=== PATIENT | female | born 1945 | race Caucasian/White ===

== ENCOUNTER 2020-09-07 08:44 | Outpatient (REF) | payer MEDICARE, SELFPAY | END 2020-09-07 08:45 | disposition home or self-care (01) | LOC: HO.LAB 08:44 | PROVIDERS: Visit Provider Internal Medicine | DX: Z20.828 Contact with and (suspected) exposure to other viral communicable diseases (principal) | CPT/HCPCS: C9803; U0003 ==

== ENCOUNTER 2021-04-11 14:16 | Outpatient (REF) | payer MEDICARE, SELFPAY | END 2021-04-11 14:17 | disposition home or self-care (01) | LOC: HO.LNP 14:16 | PROVIDERS: Visit Provider Hospitalist | DX: R30.0 Dysuria (principal) | CPT/HCPCS: 87086 ==

== ENCOUNTER 2021-04-25 13:58 | Outpatient (REF) | payer MEDICARE, SELFPAY ==
[2021-04-26 09:17] LABS: BV Int Neg Control Negative (Negative); BV Int Pos Control Positive (Positive)
== END 2021-04-25 13:59 | disposition home or self-care (01) ==
LOC: HO.LNP 13:58
PROVIDERS: Visit Provider Physician Assistant Medical
DX: N76.0 Acute vaginitis (principal)
CPT/HCPCS: 87480; 87510; 87660

== ENCOUNTER 2021-11-08 15:01 | Emergency (ER) | payer MEDICARE, SELFPAY ==
--- NOTE | ~2021-11-08 | XR_ITS ---
EXAMINATION: XR CHEST CLINICAL INFORMATION: Chest pain COMPARISON: Previous chest x-ray September 2014 TECHNIQUE: 2 views of the chest were obtained. FINDINGS: The cardiac and mediastinal contours are stable. The lungs are well inflated. There is a 1 cm dense right lower lobe nodule that is stable and probably represents a calcified granuloma. The lungs are otherwise clear. There is no pleural effusion or pneumothorax. There are degenerative changes of the spine and scoliosis. XR/XR chest 2V IMPRESSION: No evidence for acute disease in the chest.
--- NOTE | ~2021-11-08 | CT_ITS ---
EXAMINATION: CTA CHEST PE STUDY CLINICAL INFORMATION: Chest x-ray earlier today chest pain, SOB COMPARISON: No pertinent prior studies are available for comparison. TECHNIQUE: Prior to contrast administration, noncontrast localization images were obtained. After the administration of 56 mL of Omnipaque nonionic IV contrast, contiguous thin slice helical images were obtained through the thorax. Reformatted MIP images in the coronal and sagittal planes were obtained at the acquisition workstation. This CT examination was performed using dose optimization techniques as appropriate, variously including the following: *Automated exposure control *Adjustment of mA and/or kV according to patient size (this includes techniques or standardized protocols for targeted exams where dose is matched to indication/reason for exam; i.e. extremities or head) *Use of iterative reconstruction technique DLP: 161 mGy-cm. FINDINGS: The bolus timing on this study was acceptable for visualization of the pulmonary arterial tree. There are no intraluminal pulmonary arterial filling defects present to suggest pulmonary embolism. Calcified granulomas are seen more so in the right lower lobe. No suspicious abnormal pulmonary nodules or masses are appreciated. Calcified hilar and mediastinal lymph nodes are seen also consistent with the prior granulomatous disease. There is no evidence of pleural effusion or pneumothorax. The heart is normal in size. No evidence of ventricular septal bowing or right heart strain. Great vessels are normal. Otherwise the mediastinum is unremarkable. There is no pericardial effusion or pericardial thickening. Limited evaluation of the upper abdominal viscera demonstrates calcified granulomas in the spleen and liver. Degenerative changes in the spine. CT/CT angio chest PE protocol IMPRESSION: No evidence for pulmonary emboli. Again note is made of prior granulomatous disease VTE: Negative
--- NOTE | 2021-11-08 15:03 | ECG_ITS ---
Test Reason : chest pain Blood Pressure : / mmHG Vent. Rate : 069 BPM Atrial Rate : 069 BPM P-R Int : 146 ms QRS Dur : 070 ms QT Int : 388 ms P-R-T Axes : 050 058 067 degrees QTc Int : 415 ms Normal sinus rhythm Normal ECG No previous ECGs available Referred By: Generic ED Physician Electronically Signed By:Noman Reyes
[2021-11-08 15:25] VITALS: BP 174/83; PULSE 74; RESP 18; TEMP 36.8; O2SAT 100; BMI 22.1
[2021-11-08 15:31] LABS: MANUAL DIFF FLAG NO
[2021-11-08 15:37] LABS: Basophils Percent Auto 0.4 % (0-2); Eosinophils Absolute Auto 0.2 X10*3/uL (0.0-0.4); Eosinophils Percent Auto 3.3 % (0-4); Lymphocytes Absolute Auto 1.4 X10*3/uL (1.2-4.9); Lymphocytes Percent Auto 29.7 % (20-40); Mean Corpuscular HGB Conc 33.3 g/dl (31.0-35.0); Mean Corpuscular Hemoglobin 29.7 pg (27.0-33.0); Mean Corpuscular Volume 89.2 fL (80.0-98.0); Mean Platelet Volume 9.5 fL (9.4-12.3); Monocytes Absolute Auto 0.5 X10*3/uL (0.1-1.2); Monocytes Percent Auto 9.8 % (2-11); Neutrophils Absolute Auto 2.7 x10*3/uL (2.0-8.3); Neutrophils Percent Auto 56.8 % (45-73); Platelet Count 225 X10*3/uL (160-400); Red Blood Count 4.71 X10*6/uL (4.20-5.50); Red Cell Distribution Width 12.4 % (11.0-16.0); White Blood Count 4.8 X10*3/uL (4.8-10.8)
[2021-11-08 15:49] LABS: Alanine Aminotransferase 17 U/L (0-31); Albumin Level 4.2 g/dL (3.5-5.0); Alkaline Phosphatase 57 U/L (39-117); Anion Gap 11 (12-20); Aspartate Amino Transferase 24 U/L (5-31); Bilirubin Total 0.7 mg/dL (0.0-1.0); Blood Urea Nitrogen 11 mg/dL (9-16); Calcium 9.9 mg/dL (8.4-10.2); Carbon Dioxide 30 mmol/L (22-29); Chloride 102 mmol/L (96-108); Creatinine Clr Calc Pharmacy 61.5; Estimated Glomerular Filt Rate > 60; Glucose Random 101 mg/dL (60-115); Potassium 4.1 mmol/L (3.3-5.1); Sodium 139 mmol/L (135-145); Total Protein 6.7 g/dL (6.5-8.0)
[2021-11-08 15:52] LABS: Troponin-I High Sensitivity < 3.5 ng/L (<3.5-17.0)
[2021-11-08 15:58] VITALS: BP 178/107; PULSE 77; RESP 18; TEMP 36.5; O2SAT 98
--- NOTE | 2021-11-08 15:58 | ED_ITS ---
HPI - Chest Pain General Chief Complaint: Chest Pain <CARLYN Lutz - Last Filed: 11/08/21 18:15> Stated Complaint: severe chest pains <CARLYN Lutz - Last Filed: 11/08/21 18:15> Time Seen by Provider: 11/08/21 15:57 <CARLYN Lutz - Last Filed: 11/08/21 18:15> Source: patient <CARLYN Lutz - Last Filed: 11/08/21 18:15> Mode of arrival: ambulatory <CARLYN Lutz - Last Filed: 11/08/21 18:15> Limitations: no limitations <CARLYN Lutz Last Filed: 11/08/21 18:15> History of Present Illness HPI narrative: 76 y/o female with history of osteoporosis, scoliosis, gastritis, hx vertigo, hx hyperthyroidism in the 1979 s/p 6 months of PTU who presents to the ER for evaluation of a brief episode of sharp, central chest pain that happened earlier today 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 She states the pain came on suddenly and went away in 5 seconds. She had another slight twinge a few seconds later but none again since. 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 She has been having intermittent palpitations and racing heart rates since July. 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 She feels like sometimes she cannot get in a deep breath. She denies person or family history of DVT/PE. She had a history of retinal artery plaque years ago and has been on baby aspirin. She denies nausea or diaphoresis during the chest pain event today. No dizziness or reports of pre- syncope. <CARLYN Lutz - Last Filed: 11/08/21 18:15> MD complaint: chest pain <CARLYN Lutz - Last Filed: 11/08/21 18:15> Onset (ago): hour(s) (2) <CARLYN Lutz - Last Filed: 11/08/21 18:15> Timing of current episode: episodic and now resolved <CARLYN Lutz Last Filed: 11/08/21 18:15> Prior episodes: No <CARLYN Lutz - Last Filed: 11/08/21 18:15> Onset: during rest <CARLYN Lutz - Last Filed: 11/08/21 18:15> Pain location: substernal <CARLYN Lutz - Last Filed: 11/08/21 18:15> Pain radiation: none <CARLYN Lutz - Last Filed: 11/08/21 18:15> Severity: severe <CARLYN Lutz - Last Filed: 11/08/21 18:15> Pain scale (0-10): 8 <CARLYN Lutz - Last Filed: 11/08/21 18:15> Quality: sharp <CARLYN Lutz - Last Filed: 11/08/21 18:15> Relieving factors: nothing <CARLYN Lutz - Last Filed: 11/08/21 18:15> Exacerbating factors: nothing <CARLYN Lutz - Last Filed: 11/08/21 18:15> Associated symptoms: palpitations <CARLYN Lutz - Last Filed: 11/08/21 18:15> Treatment prior to arrival: none <CARLYN Lutz - Last Filed: 11/08/21 18:15> Risk Factors Coronary artery disease risk factors: hypertension (baseline BP 140/80 and not on antihypertensives) <CARLYN Lutz - Last Filed: 11/08/21 18:15> Thoracic aortic dissection risk factors: none <CARLYN Lutz - Last Filed: 11/08/21 18:15> Related Data Home Medications: Previous Rx's Medication Instructions Recorded sulfamethoxazole 800 1 tab PO BID #14 tab 04/11/21 mg-trimethoprim 160 mg tablet (Bactrim DS) fluconazole 150 mg tablet 150 mg PO Q3D #2 tab 04/25/21 (Diflucan) amlodipine 5 mg tablet (Norvasc) 5 mg PO DAILY #14 tab 11/08/21 <CARLYN Lutz - Last Filed: 11/08/21 18:15> Allergies/Adverse Reactions: Allergies Allergy/AdvReac Type Severity Reaction Status Date / Time No Known Allergies Allergy Verified 11/08/21 15:24 <CARLYN Lutz - Last Filed: 11/08/21 18:15> Review of Systems Review of Systems: Constitutional: No Fever, No Chills ENT/Mouth: No sore throat, No Rhinorrhea, No Swallowing Difficulty Eyes: No Eye Pain, No Swelling, No Redness Cardiovascular: + Chest Pain, + SOB, No Orthopnea, No Edema, +Palpitations Respiratory: No Cough, No Sputum, No Wheezing, No dyspnea Gastrointestinal: No Nausea, No Vomiting, No Diarrhea, No abdominal Pain Genitourinary: No Dysuria, No Urinary Frequency, No Hematuria Musculoskeletal: No joint pain, No Myalgias Skin: No Skin Lesions, No rash Neuro: No Weakness, No Numbness, No Dizziness, No Headache Psych: + Anxiety/Panic, No Depression Heme/Lymph: No Bruising, No Lymphadenopathy Endocrine: No hair loss, fatigue or weight loss <CARLYN Lutz - Last Filed: 11/08/21 18:15> [facility]LY [facility] Social History Social History: Social History Advance Directives: No Advance Directives Information Provided: No <CARLYN Lutz - Last Filed: 11/08/21 18:15> Physical Exam Vital Signs: Vital Signs: Last Vital Signs Temp 98.6 F 11/08/21 18:30 Pulse 70 11/08/21 18:30 Resp 12 11/08/21 18:30 BP 161/102 H 11/08/21 18:30 Pulse Ox 98 11/08/21 18:30 BMI result Body Mass Index 22.1 <CARLYN Lutz - Last Filed: 11/08/21 18:15> Vital Signs: Last Vital Signs Temp 98.6 F 11/08/21 18:30 Pulse 70 11/08/21 18:30 Resp 12 11/08/21 18:30 BP 161/102 H 11/08/21 18:30 Pulse Ox 98 11/08/21 18:30 BMI result Body Mass Index 22.1 <CARLYN Rdz - Last Filed: 11/08/21 19:25> Appearance: Alert. Oriented X3. No acute distress. Eyes: Pupils equal, round and reactive to light. ENT: Pharynx normal. Neck: Normal inspection. Neck supple. CVS: Normal heart rate and rhythm. Pulses normal. No murmur Respiratory: No respiratory distress. Breath sounds normal. Abdomen: Soft and nontender. +BS x4 Skin: Skin warm and dry. Normal skin color. Normal skin turgor. No rashes. Extremities: No lower extremity edema. No calf tenderness Neuro: Oriented X 3. No motor deficit. No sensory deficit. <CARLYN Lutz - Last Filed: 11/08/21 18:15> Course Course Course Narrative: 76 y/o female with history of osteoporosis, scoliosis, gastritis, hx vertigo, hx hyperthyroidism With intermittent heart palpitations since July 2021 who presents to the ER with brief episode of sharp central chest pain that occurred today. She also reports some intermittent shortness of breath and ongoing palpitations, sensation of her heart beating very fast. 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 EKG today is normal. Initial troponin is negative. Will get 3 hour repeat. <CARLYN Lutz Last Filed: 11/08/21 18:15> Reevaluation(s) Reevaluation #1: While in the room interviewing the patient she felt the palpitations for a few seconds. Patient's HR went up to 140s briefly and then came back down to 8 0s, sinus. Question of atrial flutter on telemetry. Will keep monitoring on telemetry to try and capture another event. Will get CTA to r/o PE. <CARLYN Lutz Last Filed: 11/08/21 18:15> Reevaluation #2: CTA is negative for PE. Second troponin pending. Anticipate to be able to be discharged home with plan to continue her follow-up and cardiac workup with her outpatient corn husker machine operator. No further episodes of palpitations witnessed. Signed out to Debbi who will follow-up repeat troponin. <CARLYN Lutz - Last Filed: 11/08/21 18:15> CTA is negative for PE. Second troponin pending. Anticipate to be able to be discharged home with plan to continue her follow-up and cardiac workup with her outpatient corn husker machine operator. No further episodes of palpitations witnessed. Signed out to Debbi who will follow-up repeat troponin. <CARLYN Rdz - Last Filed: 11/08/21 19:25> Reevaluation #3: CTA negvative for PE/VTE. There is granulomatous disease which appears to be chronic in nature. Trop negative x2. Will have patient follow-up with Cardiology and her PCP as soon as possible. No further episodes of palpitations witnessed. Patient noted to be hypertensive here. She was given Norvasc with improvement. She will be discharged home on 5 mg of Norvasc daily, will give her 2 week supply. Patient will be discharged home with Cardiology follow-up. Advised her to return with new or worsening symptoms. <CARLYN Rdz - Last Filed: 11/08/21 19:25> Time: 19:14 <CARLYN Rdz - Last Filed: 11/08/21 19:25> Procedures EJ/Peripheral Line Arm L: Time Out Performed: No <CARLYN Lutz - Last Filed: 11/08/21 18:15> Skin Cleansed in Sterile Fashion: Yes <CARLYN Lutz - Last Filed: 11/08/21 18:15> Size (gauge): 20 <CARLYN Lutz - Last Filed: 11/08/21 18:15> IV Secured and Dressing Applied: Yes <CARLYN Lutz - Last Filed: 11/08/21 18:15> Patient Tolerated Procedure: well and no complications <CARLYN Lutz - Last Filed: 11/08/21 18:15> MDM - Chest Pain Medical Records Data Attestation: I reviewed the patient's medical records. <CARLYN Lutz - Last Filed: 11/08/21 18:15> Lab Data Attestation: I reviewed the patient's lab results. <CARLYN Lutz - Last Filed: 11/08/21 18:15> Result diagrams: : 11/08/21 15:23 11/08/21 15:23 <CARLYN Lutz - Last Filed: 11/08/21 18:15> Labs: Lab Results 11/08/21 11/08/21 11/08/21 Range/Units 15:23 15:23 15:23 WBC 4.8 (4.8-10.8) X10*3/uL RBC 4.71 (4.20-5.50) X10*6/uL Hgb 14.0 (12.0-16.0) g/dl Hct 42.0 (37.0-47.0) % MCV 89.2 (80.0-98.0) fL MCH 29.7 (27.0-33.0) pg MCHC 33.3 (31.0-35.0) g/dl RDW 12.4 (11.0-16.0) % Plt Count 225 (160-400) X10*3/uL MPV 9.5 (9.4-12.3) fL Immature Gran % (Auto) 0.0 (0.0-0.4) % Neut % (Auto) 56.8 (45-73) % Lymph % (Auto) 29.7 (20-40) % [place] % (Auto) 9.8 (2-11) % Eos % (Auto) 3.3 (0-4) % Baso % (Auto) 0.4 (0-2) % Lymph # (Auto) 1.4 (1.2-4.9) X10*3/uL [place] # (Auto) 0.5 (0.1-1.2) X10*3/uL Eos # (Auto) 0.2 (0.0-0.4) X10*3/uL Baso # (Auto) 0.0 (0.0-0.2) X10*3/uL Abs Immat Gran (auto) 0.00 (0.00-0.03) X10*3/uL Absolute Neuts (auto) 2.7 (2.0-8.3) x10*3/uL Absolute Nucleated RBC 0.000 (0.0-0.012) X10*3/uL Nucleated RBC % (auto) 0.0 (0.0-0.2) /100WBC Sodium 139 (135-145) mmol/L Potassium 4.1 (3.3-5.1) mmol/L Chloride 102 (96-108) mmol/L Carbon Dioxide 30 H (22-29) mmol/L Anion Gap 11 L (12-20) BUN 11 (9-16) mg/dL Creatinine 0.74 (0.5-1.4) mg/dL Estim Creat Clear Calc 61.5 Estimated GFR > 60 Random Glucose 101 (60-115) mg/dL Calcium 9.9 (8.4-10.2) mg/dL Total Bilirubin 0.7 (0.0-1.0) mg/dL AST 24 (5-31) U/L ALT 17 (0-31) U/L Alkaline Phosphatase 57 (39-117) U/L Troponin I High Sens < 3.5 (<3.5-17.0) ng/L Total Protein 6.7 (6.5-8.0) g/dL Albumin 4.2 (3.5-5.0) g/dL TSH 1.13 (0.32-4.0) uIU/mL 11/08/21 Range/Units 18:30 WBC (4.8-10.8) X10*3/uL RBC (4.20-5.50) X10*6/uL Hgb (12.0-16.0) g/dl Hct (37.0-47.0) % MCV (80.0-98.0) fL MCH (27.0-33.0) pg MCHC (31.0-35.0) g/dl RDW (11.0-16.0) % Plt Count (160-400) X10*3/uL MPV (9.4-12.3) fL Immature Gran % (Auto) (0.0-0.4) % Neut % (Auto) (45-73) % Lymph % (Auto) (20-40) % [place] % (Auto) (2-11) % Eos % (Auto) (0-4) % Baso % (Auto) (0-2) % Lymph # (Auto) (1.2-4.9) X10*3/uL [place] # (Auto) (0.1-1.2) X10*3/uL Eos # (Auto) (0.0-0.4) X10*3/uL Baso # (Auto) (0.0-0.2) X10*3/uL Abs Immat Gran (auto) (0.00-0.03) X10*3/uL Absolute Neuts (auto) (2.0-8.3) x10*3/uL Absolute Nucleated RBC (0.0-0.012) X10*3/uL Nucleated RBC % (auto) (0.0-0.2) /100WBC Sodium (135-145) mmol/L Potassium (3.3-5.1) mmol/L Chloride (96-108) mmol/L Carbon Dioxide (22-29) mmol/L Anion Gap (12-20) BUN (9-16) mg/dL Creatinine (0.5-1.4) mg/dL Estim Creat Clear Calc Estimated GFR Random Glucose (60-115) mg/dL Calcium (8.4-10.2) mg/dL Total Bilirubin (0.0-1.0) mg/dL AST (5-31) U/L ALT (0-31) U/L Alkaline Phosphatase (39-117) U/L Troponin I High Sens < 3.5 (<3.5-17.0) ng/L Total Protein (6.5-8.0) g/dL Albumin (3.5-5.0) g/dL TSH (0.32-4.0) uIU/mL <CARLYN Lutz - Last Filed: 11/08/21 18:15> Lab Results 11/08/21 11/08/21 11/08/21 Range/Units 15:23 15:23 15:23 WBC 4.8 (4.8-10.8) X10*3/uL RBC 4.71 (4.20-5.50) X10*6/uL Hgb 14.0 (12.0-16.0) g/dl Hct 42.0 (37.0-47.0) % MCV 89.2 (80.0-98.0) fL MCH 29.7 (27.0-33.0) pg MCHC 33.3 (31.0-35.0) g/dl RDW 12.4 (11.0-16.0) % Plt Count 225 (160-400) X10*3/uL MPV 9.5 (9.4-12.3) fL Immature Gran % (Auto) 0.0 (0.0-0.4) % Neut % (Auto) 56.8 (45-73) % Lymph % (Auto) 29.7 (20-40) % [place] % (Auto) 9.8 (2-11) % Eos % (Auto) 3.3 (0-4) % Baso % (Auto) 0.4 (0-2) % Lymph # (Auto) 1.4 (1.2-4.9) X10*3/uL [place] # (Auto) 0.5 (0.1-1.2) X10*3/uL Eos # (Auto) 0.2 (0.0-0.4) X10*3/uL Baso # (Auto) 0.0 (0.0-0.2) X10*3/uL Abs Immat Gran (auto) 0.00 (0.00-0.03) X10*3/uL Absolute Neuts (auto) 2.7 (2.0-8.3) x10*3/uL Absolute Nucleated RBC 0.000 (0.0-0.012) X10*3/uL Nucleated RBC % (auto) 0.0 (0.0-0.2) /100WBC Sodium 139 (135-145) mmol/L Potassium 4.1 (3.3-5.1) mmol/L Chloride 102 (96-108) mmol/L Carbon Dioxide 30 H (22-29) mmol/L Anion Gap 11 L (12-20) BUN 11 (9-16) mg/dL Creatinine 0.74 (0.5-1.4) mg/dL Estim Creat Clear Calc 61.5 Estimated GFR > 60 Random Glucose 101 (60-115) mg/dL Calcium 9.9 (8.4-10.2) mg/dL Total Bilirubin 0.7 (0.0-1.0) mg/dL AST 24 (5-31) U/L ALT 17 (0-31) U/L Alkaline Phosphatase 57 (39-117) U/L Troponin I High Sens < 3.5 (<3.5-17.0) ng/L Total Protein 6.7 (6.5-8.0) g/dL Albumin 4.2 (3.5-5.0) g/dL TSH 1.13 (0.32-4.0) uIU/mL 11/08/21 Range/Units 18:30 WBC (4.8-10.8) X10*3/uL RBC (4.20-5.50) X10*6/uL Hgb (12.0-16.0) g/dl Hct (37.0-47.0) % MCV (80.0-98.0) fL MCH (27.0-33.0) pg MCHC (31.0-35.0) g/dl RDW (11.0-16.0) % Plt Count (160-400) X10*3/uL MPV (9.4-12.3) fL Immature Gran % (Auto) (0.0-0.4) % Neut % (Auto) (45-73) % Lymph % (Auto) (20-40) % [place] % (Auto) (2-11) % Eos % (Auto) (0-4) % Baso % (Auto) (0-2) % Lymph # (Auto) (1.2-4.9) X10*3/uL [place] # (Auto) (0.1-1.2) X10*3/uL Eos # (Auto) (0.0-0.4) X10*3/uL Baso # (Auto) (0.0-0.2) X10*3/uL Abs Immat Gran (auto) (0.00-0.03) X10*3/uL Absolute Neuts (auto) (2.0-8.3) x10*3/uL Absolute Nucleated RBC (0.0-0.012) X10*3/uL Nucleated RBC % (auto) (0.0-0.2) /100WBC Sodium (135-145) mmol/L Potassium (3.3-5.1) mmol/L Chloride (96-108) mmol/L Carbon Dioxide (22-29) mmol/L Anion Gap (12-20) BUN (9-16) mg/dL Creatinine (0.5-1.4) mg/dL Estim Creat Clear Calc Estimated GFR Random Glucose (60-115) mg/dL Calcium (8.4-10.2) mg/dL Total Bilirubin (0.0-1.0) mg/dL AST (5-31) U/L ALT (0-31) U/L Alkaline Phosphatase (39-117) U/L Troponin I High Sens < 3.5 (<3.5-17.0) ng/L Total Protein (6.5-8.0) g/dL Albumin (3.5-5.0) g/dL TSH (0.32-4.0) uIU/mL <CARLYN Rdz - Last Filed: 11/08/21 19:25> ECG Data ECG #1: Attestation: I personally reviewed and interpreted this ECG as follows: <CARLYN Lutz - Last Filed: 11/08/21 18:15> ECG interpretation date: 11/08/21 <CARLYN Lutz - Last Filed: 11/08/21 18:15> ECG interpretation time: 16:24 <CARLYN Lutz - Last Filed: 11/08/21 18:15> Prior ECG tracings: not available for review <CARLYN Lutz - Last Filed: 11/08/21 18:15> Interpretation: normal sinus rhythm, heart rate 69 beats per minute, normal MT interval, normal QRS, isolated T-wave inversion in V1, slightly peaked T-wave in V4 and V5, no ST segment elevations or depressions. <CARLYN Lutz - Last Filed: 11/08/21 18:15> Critical Care Time Critical Care Time Critical Care Time: No <CARLYN Rdz - Last Filed: 11/08/21 19:25> Discharge Plan Discharge Clinical Impression: Chest pain, Heart palpitations <CARLYN Lutz - Last Filed: 11/08/21 18:15> Patient Disposition: Home, Self-Care <CARLYN Lutz - Last Filed: 11/08/21 18:15> Instructions: Heart Palpitations (DC) <CARLYN Lutz - Last Filed: 11/08/21 18:15> Additional Instructions: Your lab workup today was normal. Your CT scan did not show any evidence of blood clots in the lungs. Your EKG was normal. Recommend following up with your corn husker machine operator as scheduled for your Holter monitor and echocardiogram. If you develop new or worsening symptoms call 911 or come back to the ER for further evaluation. <CARLYN Lutz Last Filed: 11/08/21 18:15> Prescriptions: New amlodipine [Norvasc] 5 mg tablet 5 mg PO DAILY Qty: 14 0RF No Action sulfamethoxazole-trimethoprim [Bactrim DS] 800-160 mg tablet 1 tab PO BID Qty: 14 0RF fluconazole [Diflucan] 150 mg tablet 150 mg PO Q3D Qty: 2 0RF Rx Instructions: may repeat second dose 72 hrs after first dose if symptoms persist <CARLYN Lutz - Last Filed: 11/08/21 18:15> Referrals: Edward Barajas FNP- [Primary Care Provider] - 2 days Noman Reyes MD [Physician] - 1 day <CARLYN Lutz - Last Filed: 11/08/21 18:15> Stand Alone Forms: Work/School Release <CARLYN Lutz - Last Filed: 11/08/21 18:15>
--- NOTE | 2021-11-08 16:01 | PC.NURSE ---
PT AWAKE AND AMBULATORY INTO ED. SHE IS IN A NSR ON THE MONITOR, WITH NO CURRENT REPORTED CP OR SOB. AWAITING PROVIDER. LABS RESULTED
[2021-11-08 16:38] LABS: TSH reflex Free T4 1.13 uIU/mL (0.32-4.0)
[2021-11-08] MEDS: iohexoL 350 MG/ML 100 ML INFUS..BTL IV (17:01)
[2021-11-08] MEDS: amLODIPine Besylate 5 MG TABLET PO (17:32)
[2021-11-08 18:30] VITALS: BP 161/102; PULSE 70; RESP 12; TEMP 37; O2SAT 98
[2021-11-08 19:06] LABS: Troponin-I High Sensitivity < 3.5 ng/L (<3.5-17.0)
[2021-11-08 19:30] VITALS: BP 151/93; PULSE 77; RESP 18; O2SAT 98
== END 2021-11-08 19:34 | disposition home or self-care (01) ==
PROVIDERS: Physician Assistant; Emergency Provider Emergency Medicine Emergency Medical Services; PCP Nurse Practitioner Family
DX: R07.89 Other chest pain (principal); R00.2 Palpitations; R06.02 Shortness of breath; Z79.899 Other long term (current) drug therapy
CPT/HCPCS: 36415; 36569; 71046; 71275; 80053; 84443; 84484; 85025; 93005; 99283; 99284; Q9967

== ENCOUNTER → 2021-12-15 13:28 | Outpatient (BNVA) | payer MEDICARE, SELFPAY | PROVIDERS: PCP Nurse Practitioner Family; Referring Provider Nurse Practitioner Family; Visit Provider Nurse Practitioner Family | DX: R00.2 Palpitations (principal); I47.1 Supraventricular tachycardia; R07.9 Chest pain, unspecified | CPT/HCPCS: 99202 ==

== ENCOUNTER → 2022-02-21 07:37 | Outpatient (REF) | payer MEDICARE, SELFPAY ==
--- NOTE | 2022-02-21 07:40 | CA_ITS ---
Transthoracic Echocardiogram Patient (Last, First, Middle): Sarai Babin E Gender: Female Date of : 1945 Age: 76 Procedure Date: 02/21/2022 Procedure Type: Transthoracic Echocardiogram Location: OP Height: 167.64 cm Weight: 62.14 kg BSA: 1.70 m2 Heart Rate: 69 bpm BP: 127 / 75 mmHg Spinneret Person: SB Referring MD: Edward Barajas [facility] Symptoms: R07.9 - Chest pain, unspecified Study Quality: Adequate ECG Rhythm: Sinus Conclusions: - The left ventricular systolic function is normal. The calculated ejection fraction is 59% by biplane method. - The basal inferior segment is hypokinetic. - There is low normal right ventricular systolic function. - There is mild calcification of the aortic valve. - There is mild mitral annular calcification. - Mild pulmonary hypertension is present. - The inferior vena cava is dilated and collapses less than 50% with inspiration. Findings Left Ventricle Normal left ventricular cavity size. There is normal left ventricular wall thickness. The left ventricular systolic function is normal. The calculated ejection fraction is 59% by biplane method. E/E prime ratio is between 8 and 15 consistent with indeterminate filling pressures. Evidence suggests grade I (mild) diastolic dysfunction. Wall Motion Rest Echo Findings The basal inferior segment is hypokinetic. Right Ventricle Normal right ventricular cavity size. There is low normal right ventricular systolic function. Atria Both atria are normal in size. Aortic Valve There is mild calcification of the aortic valve. There is no aortic valve stenosis. There is no aortic valve regurgitation. Mitral Valve There is mild mitral annular calcification. There is trace mitral valve regurgitation. There is no mitral valve stenosis. Pulmonic Valve The pulmonic valve is likely normal. There is trace pulmonic valve regurgitation. Tricuspid Valve Normal tricuspid valve structure. There is mild tricuspid valve regurgitation. The right ventricular systolic pressure is 37 mmHg. Mild pulmonary hypertension is present. Great Vessels The asc aorta is normal in size. Venous The inferior vena cava is dilated and collapses less than 50% with inspiration. Pericardium/Pleural There is a trivial pericardial effusion. Prior Study Comparison No prior study available for comparison. Measurements 2D Linear Measurements IVSd: 0.68 0.6-0.9/0.6-1.0 cm LVIDd: 4.68 3.9-5.3/4.2-5.9 cm LVIDd Index: 2.75 2.4-3.2/2.2-3.1 cm/m2 LVIDs: 3.06 2.0-3.6 cm LVPWd: 0.71 0.7-1.1 cm Ao Root: 3.30 2.1-3.5 cm LA Diam: 3.20 2.7-3.8/3.0-4.0 cm LAIDs Index: 1.88 1.5-2.3 cm/m2 LV Mass: 126.34 67-162/88-224 g LV Mass Index: 74.32 43-95/49-115 g/m2 LVOT Diam: 2.10 3.0+(-)1.3 cm 2D Systolic Function EF 4C: 59.60 >55% EF 2C: 60.60 >55% EF BiP: 58.90 >55% Mitral Valve MV Pk E: 0.72 MV PK A: 0.92 MV Decel Time: 188.00 E/A: 0.80 E'Lateral: 7.51 E'Medial: 4.90 E/E' Med: 14.80 E/E' Lat: 9.60 PHT: 55.00 MVA PHT: 4.00 Decel [place]: 3.86 Aortic Valve AoV Pk [place]: 1.68 AoV Mn [place]: 1.18 AoV VTI: 0.38 AoV Pk Grad: 11.00 Aov Mn Grad: 6.00 PERICO Cont.VTI: 2.12 LVOT LVOT Pk [place]: 1.09 LVOT Mn [place]: 0.76 LVOT VTI: 0.23 LVOT Pk Grad: 5.00 LVOT Mn Grad: 3.00 LVOT Diam: 2.10 LVOT Area: 3.46 Diastolic Function MV Pk E: 0.72 MV Pk A: 0.92 E/A: 0.80 E'Medial: 4.90 E/E' Med: 14.80 E' Laterial: 7.51 E/E' Lat: 9.60 Right Ventricle TAPSE (mm): 16.30 TVS' [place]: 11.60 Tricuspid Valve TR Pk [place]: 2.32 TR Pk Grad: 22.00 RA Press: 15.00 RVSP: 37.00 Great Vessels Aorta Ao Root-2D: 3.30 2.0-3.7 cm Sinus of Valsalva: 3.30 2.0-3.5 cm Ao Asc: 3.20 2.1-3.4 cm Pulmonary Veins Pulm Vein S/D 1.10 Pulmonary Valve PV Pk [place]: 0.61 Peak PV Grad: 1.00 Updated in Other Vendor System with Status of Final Armando Iraheta MD electronically signed on 02/21/2022 11:15:20 AM with status of Final
== END ==
LOC: HO.CARD 07:37
PROVIDERS: Visit Provider Nurse Practitioner Family
DX: R07.9 Chest pain, unspecified (principal)
CPT/HCPCS: 93306

== ENCOUNTER → 2022-03-20 09:08 | Outpatient (BNVA) | payer MEDICARE, SELFPAY | PROVIDERS: PCP Nurse Practitioner Family; Referring Provider Nurse Practitioner Family; Visit Provider Internal Medicine Cardiovascular Disease | DX: I10 Essential (primary) hypertension (principal); R00.2 Palpitations | CPT/HCPCS: 99212 ==

== ENCOUNTER 2022-06-09 12:29 | Outpatient (REF) | payer MEDICARE, SELFPAY ==
--- NOTE | ~2022-06-09 | MM_ITS ---
EXAMINATION: BONE DENSITOMETRY CLINICAL INDICATION: Osteoporosis. COMPARISON: Previous BD dated 05/18/2020 and baseline BD dated 05/25/2008. TECHNIQUE: Using a iGlue DXA System (software version: 13.1) manufactured by [employer], dual-energy x-ray absorptiometry was performed of the lumbar spine and left hip. The images are of good technical quality. Summary results are attached. FINDINGS: AP SPINE L1-L4: There is prominent dextrocurvature lumbar spine and multilevel degenerative changes which may cause overestimation of the lumbar bone mineral density. Current: BMD 1.016 g/cm2, Z-score 0.5, T-score -1.4, osteopenia, 1.2% increase from previous, 1.1% increase from baseline (<5% change is not significant). Prior: BMD 1.004 g/cm2. Baseline: BMD 1.005 g/cm2. LEFT FEMUR, NECK: Current: BMD 0.726 g/cm2, Z-score -0.2, T-score -2.2, osteopenia. Prior: BMD 0.737 g/cm2. Baseline: BMD 0.822 g/cm2. LEFT FEMUR, TOTAL: Current: BMD 0.717 g/cm2, Z-score -0.5, T-score -2.3, osteopenia, 2.3% decrease from previous, 17.0% decrease from baseline (<5% change is not significant). Prior: BMD 0.734 g/cm2. Baseline: BMD 0.864 g/cm2. IDENTIFIED RISK FACTORS: Osteoporosis, height loss, family history (parental hip fracture), secondary osteoporosis, menopause. HISTORY OF FRACTURE: None listed. MEDICATIONS: Vitamin D. MM/XR DEXA axial skeleton IMPRESSION: 1. DIAGNOSIS: Osteopenia based on the lowest T-score value of -2.3 in the total femur applying World Health Organization criteria. 2. 10-YEAR FRACTURE RISK PREDICTION, FRAX: Major osteoporotic fracture (clinical spine, forearm, hip or shoulder) 27.2%. Hip fracture 17.6%. 3. Treatment Recommendations: NOF guidelines recommend consideration for treatment in postmenopausal women and men age 50 and older presenting with the following: -A hip or vertebral (clinical or morphometric) fracture. -T-score less than or equal to -2.5 at the femoral neck or spine after appropriate evaluation to exclude secondary causes. -Low bone mass at the hip or spine and a 10-year fracture probability by FRAX of greater than or equal to 3% for hip fracture or greater than or equal to 20% for major osteoporotic fracture based on the [place] adapted WHO algorithm. 4. Other Recommendations: All treatment decisions require clinical judgment and consideration of individual patient factors, including patient preferences, comorbidities, previous drug use, risk factors not captured in the FRAX model (e.g. frailty, falls, vitamin D deficiency, increased bone turnover, interval significant decline in bone density) and possible under or overestimation of fracture risk by FRAX. Additional medical evaluation for secondary cause of low bone mineral density may be appropriate. FUTURE SCAN RECOMMENDATION: People with diagnosed cases of osteoporosis or at high risk for fracture should have regular bone mineral density tests. For patients eligible for Medicare, routine testing is allowed once every 2 years. The testing frequency can be increased to one year for patients who have rapidly progressing disease, those who are receiving or discontinuing medical therapy to restore bone mass, or have additional risk factors.
--- NOTE | ~2022-06-09 | MM_ITS ---
EXAMINATION: MM SCREENING DIGITAL BREAST TOMOSYNTHESIS, BILATERAL CLINICAL INFORMATION: Screening. Asymptomatic. The lifetime risk of breast cancer based on the Tyrer-Cuzick Model is 4%. COMPARISON: Mammography: 04/18/2018, 04/04/2016, 09/29/2014 TECHNIQUE: Digital breast tomosynthesis is performed in both the craniocaudal and mediolateral oblique views along with computer-aided detection (CAD). Synthesized 2D images are generated from the tomosynthesis. FINDINGS: There are scattered areas of fibroglandular density (ACR BI-RADS breast composition Category b). There are no significant masses, abnormal calcifications, or other abnormalities. Parenchymal pattern is similar to prior studies. No developing density or architectural abnormality. No significant changes. MM/MM tomosynthesis screening BI IMPRESSION: No mammographic evidence of malignancy. ASSESSMENT: BI-RADS 1: Negative RECOMMENDATION: Routine annual mammography screening. This patient's information was entered into a reminder system with a target due date for their next mammogram.
== END 2022-06-09 12:30 | disposition home or self-care (01) ==
LOC: HO.MAMMO 12:29
PROVIDERS: PCP Nurse Practitioner Family; Visit Provider Internal Medicine Endocrinology, Diabetes & Metabolism
DX: Z13.820 Encounter for screening for osteoporosis (principal); Z12.31 Encounter for screening mammogram for malignant neoplasm of breast; M81.0 Age-related osteoporosis without current pathological fracture; Z78.0 Asymptomatic menopausal state
CPT/HCPCS: 77063; 77067; 77080

== ENCOUNTER → 2022-07-24 09:21 | Outpatient (BNVA) | payer MEDICARE, SELFPAY | PROVIDERS: PCP Nurse Practitioner Family; Referring Provider Nurse Practitioner Family; Visit Provider Internal Medicine Cardiovascular Disease | DX: I10 Essential (primary) hypertension (principal); R00.2 Palpitations | CPT/HCPCS: 93005; 99212 ==

== ENCOUNTER → 2022-08-01 10:45 | Outpatient (REF) | payer MEDICARE, SELFPAY ==
--- NOTE | 2022-08-01 10:48 | HM_ITS ---
* Total monitoring time 23 days. Wear time 15 days. * Underlying rhythm is sinus. * Average ventricular rate 67/Min. Range 50 to 150/Min. * Evidence of supraventricular ectopy but low burden. Short runs noted. * Ventricular ectopy with a burden of 1.7%. * No significant pauses or AV blocks. * No evidence of atrial fibrillation. * Patient activations correlate with sinus rhythm/supraventricular ectopy. MTDD
== END ==
LOC: HO.CARD 10:45
PROVIDERS: Visit Provider Internal Medicine Cardiovascular Disease
DX: R00.2 Palpitations (principal)
CPT/HCPCS: 93270

== ENCOUNTER 2022-12-21 08:11 | Outpatient (REF) | payer MEDICARE, SELFPAY ==
--- NOTE | ~2022-12-21 | XR_ITS ---
EXAMINATION: XR HAND, RIGHT CLINICAL INFORMATION: Primary osteoarthritis right hand. COMPARISON: None available. TECHNIQUE: PA, lateral, and oblique views of the right hand. FINDINGS: There is loss of PIP and DIP joint spaces all digits with periarticular spurring and subchondral cyst consistent with degenerative osteoarthritis. There is no deformity, acute fracture or subluxation. The soft tissues are normal. The MCP, carpometacarpal and radioulnar carpal joint spaces are maintained normal. 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 No visible acute fracture or dislocation seen.
[2022-12-21 11:27] LABS: MANUAL DIFF FLAG NO
[2022-12-21 11:29] LABS: Appearance Urine Clear; Color Urine Yellow; Glucose Urine UA Negative (Negative); Leukocyte Esterase Urine Negative (Negative); Nitrite Urine Negative (Negative); Specific Gravity - Urine 1.015 (1.005-1.025); Urine Blood Negative (Negative); Urine Ketones Negative (Negative); Urine Protein Negative (Neg-Trace)
[2022-12-21 12:04] LABS: Basophils Absolute Auto 0.1 X10*3/uL (0.0-0.2); Basophils Percent Auto 1.2 % (0-2); Eosinophils Absolute Auto 0.3 X10*3/uL (0.0-0.4); Eosinophils Percent Auto 6.7 % (0-4); Hematocrit 41.7 % (37.0-47.0); Hemoglobin 13.7 g/dl (12.0-16.0); Imm Gran Abs Auto 0.01 X10*3/uL (0.00-0.03); Imm Gran Pct Auto 0.2 % (0.0-0.4); Lymphocytes Absolute Auto 1.5 X10*3/uL (1.2-4.9); Lymphocytes Percent Auto 34.3 % (20-40); Mean Corpuscular HGB Conc 32.9 g/dl (31.0-35.0); Mean Corpuscular Hemoglobin 29.8 pg (27.0-33.0); Mean Corpuscular Volume 90.8 fL (80.0-98.0); Mean Platelet Volume 9.9 fL (9.4-12.3); Monocytes Absolute Auto 0.5 X10*3/uL (0.1-1.2); Monocytes Percent Auto 11.1 % (2-11); Neutrophils Percent Auto 46.5 % (45-73); Platelet Count 259 X10*3/uL (160-400); Red Blood Count 4.59 X10*6/uL (4.20-5.50); White Blood Count 4.3 X10*3/uL (4.8-10.8)
[2022-12-21 12:11] LABS: Alanine Aminotransferase 17 U/L (0-31); Alkaline Phosphatase 69 U/L (39-117); Anion Gap 12 (12-20); Aspartate Amino Transferase 25 U/L (5-31); Bilirubin Total 0.7 mg/dL (0.0-1.0); Blood Urea Nitrogen 10 mg/dL (9-16); Calcium 9.3 mg/dL (8.4-10.2); Carbon Dioxide 29 mmol/L (22-29); Chloride 106 mmol/L (96-108); Cholesterol 230 mg/dL; Estimated Glomerular Filt Rate > 60; Glucose Fasting 97 mg/dL (60-99); HDL Cholesterol 93 mg/dL; LDL Cholesterol Calculated 129 mg/dl; Sodium 142 mmol/L (135-145); Total Protein 6.1 g/dL (6.5-8.0); Triglycerides 40 mg/dL
[2022-12-21 12:22] LABS: TSH reflex Free T4 0.96 uIU/mL (0.32-4.0); Vitamin D 25-OH Total 44.5 ng/mL (>30)
== END 2022-12-21 08:12 | disposition home or self-care (01) ==
LOC: HO.HMGCX 08:11
PROVIDERS: PCP Nurse Practitioner Family; Visit Provider Nurse Practitioner Family
DX: M19.041 Primary osteoarthritis, right hand (principal); I10 Essential (primary) hypertension; M81.0 Age-related osteoporosis without current pathological fracture
CPT/HCPCS: 36415; 73130; 80053; 80061; 81003; 82306; 84443; 85025

== ENCOUNTER → 2022-12-26 12:47 | Outpatient (BNVA) | payer MEDICARE, SELFPAY | PROVIDERS: PCP Nurse Practitioner Family; Visit Provider Orthopaedic Surgery | DX: M19.041 Primary osteoarthritis, right hand (principal) | CPT/HCPCS: 99202 ==

== ENCOUNTER 2023-01-16 12:07 | Outpatient (REF) | payer MEDICARE, SELFPAY ==
--- NOTE | ~2023-01-16 | XR_ITS ---
EXAMINATION: XR HAND, RIGHT CLINICAL INFORMATION: Pain right hand. COMPARISON: None available. TECHNIQUE: A single digital view of the right hand, 5th digit. FINDINGS: There is a needle positioned along the PIP joint 5th digit for steroid injection. There is severe loss of PIP and DIP joints of all digits with periarticular spurring, most prominent in the PIP and DIP joints of 5th digit. XR/XR hand RT min 3V IMPRESSION: Fluoroscopy guidance was provided to referring physician for pain management of PIP joint 5th digit. Fluoroscopy Time: 6.9 seconds. Dose Area Product: 2838.4 Gy-cm2
== END 2023-01-16 12:08 | disposition home or self-care (01) ==
LOC: HO.HOSX 12:07
PROVIDERS: PCP Nurse Practitioner Family; Visit Provider Orthopaedic Surgery
DX: M19.041 Primary osteoarthritis, right hand (principal)
CPT/HCPCS: 20600; 73130; 77002; 99212; J1020

== ENCOUNTER 2023-03-09 05:36 | Emergency (ER) | payer MEDICARE, SELFPAY ==
--- NOTE | ~2023-03-09 | XR_ITS ---
EXAMINATION: XR CHEST CLINICAL INFORMATION: Chest pain COMPARISON: 11/08/2021 TECHNIQUE: Frontal view of the chest was obtained. FINDINGS: Lung volumes are symmetric. No focal consolidation is seen. Redemonstrated right lower lobe calcification. No evidence of pneumothorax, pleural effusion, or pulmonary edema. Cardiac size is within normal limits. Calcification is present at the aortic arch. No acute osseous findings are seen. XR/XR chest 1V IMPRESSION: No acute cardiopulmonary findings.
--- NOTE | 2023-03-09 05:41 | ECG_ITS ---
Test Reason : CHEST PAIN Blood Pressure : / mmHG Vent. Rate : 065 BPM Atrial Rate : 065 BPM P-R Int : 156 ms QRS Dur : 070 ms QT Int : 400 ms P-R-T Axes : 034 053 058 degrees QTc Int : 416 ms Normal sinus rhythm Normal ECG When compared with ECG of 08-NOV-2021 15:07, No significant change was found Referred By: Generic ED Physician Electronically Signed By:Noman Reyes
[2023-03-09 06:00] VITALS: BP 140/73; PULSE 76; O2SAT 98; BMI 23.0
[2023-03-09 06:00] LABS: Basophils Percent Auto 0.7 % (0-2); Eosinophils Absolute Auto 0.2 X10*3/uL (0.0-0.4); Eosinophils Percent Auto 3.2 % (0-4); Hemoglobin 14.2 g/dl (12.0-16.0); Imm Gran Abs Auto 0.02 X10*3/uL (0.00-0.03); Imm Gran Pct Auto 0.4 % (0.0-0.4); Lymphocytes Absolute Auto 1.2 X10*3/uL (1.2-4.9); Lymphocytes Percent Auto 21.7 % (20-40); MANUAL DIFF FLAG NO; Mean Corpuscular HGB Conc 33.8 g/dl (31.0-35.0); Mean Corpuscular Hemoglobin 29.9 pg (27.0-33.0); Mean Corpuscular Volume 88.4 fL (80.0-98.0); Monocytes Absolute Auto 0.5 X10*3/uL (0.1-1.2); Monocytes Percent Auto 8.4 % (2-11); Neutrophils Absolute Auto 3.5 x10*3/uL (2.0-8.3); Neutrophils Percent Auto 65.6 % (45-73); Platelet Count 213 X10*3/uL (160-400); Red Blood Count 4.75 X10*6/uL (4.20-5.50); Red Cell Distribution Width 12.7 % (11.0-16.0); White Blood Count 5.3 X10*3/uL (4.8-10.8)
[2023-03-09 06:04] VITALS: PULSE 78
--- NOTE | 2023-03-09 06:05 | PC.NURSE ---
Pt presents to ER via EMS, complaining of chest pain, starting around 0400. Pt presents A&Ox4, GCS 15, with warm, dry skin. Pt reports she woke up with intermittent chest pains, episodes approx 60-90 seconds apart, lasting approx 10 seconds each. Pain is 4/10, dull, feels like gas and indigestion. Pt denies any SOB, NVD, radiating pain, numbnes or tingling in hands or feet. EMS gave 324mg of aspirin with no change in patient condition. EMS placed a 20g IV in the right AC. Pt is resting comfortably in bed at this time, has been changed into a sarita. Labs were drawn and sent, EKG and chest xray obtained. Pt waiting to be seen by provider at this time.
[2023-03-09 06:13] VITALS: BP 135/66; PULSE 70; RESP 17; TEMP 36.9; O2SAT 97
[2023-03-09 06:13] LABS: Anion Gap 14 (12-20); Blood Urea Nitrogen 17 mg/dL (9-16); Calcium 9.9 mg/dL (8.4-10.2); Carbon Dioxide 27 mmol/L (22-29); Chloride 106 mmol/L (96-108); Creatinine Clr Calc Pharmacy 65.9; Estimated Glomerular Filt Rate > 60; Glucose Random 115 mg/dL (60-115); Sodium 143 mmol/L (135-145)
[2023-03-09 06:23] LABS: Troponin-I High Sensitivity < 2.7 ng/L (<3.5-17.0)
--- NOTE | 2023-03-09 06:36 | ED_ITS ---
HPI - Chest Pain General Chief Complaint: Chest Pain Stated Complaint: Chest Pain Time Seen by Provider: 03/09/23 06:31 Source: patient, EMS and RN notes reviewed Mode of arrival: EMS Limitations: no limitations History of Present Illness HPI narrative: Patient is a 77-year-old female with history of HTN, osteoporosis, arthritis, atrial tachycardia presenting with intermittent episodes of left anterior chest pain which woke her from sleep around 4:00 a.m. Patient reports pain is a 3 to 4/10 and lasts approximately 10 seconds per episode. States has not had an episode in the past 5 minutes. Denies any associated shortness of breath. Denies nausea or vomiting. Denies abdominal pain. Denies cough for recent fevers. Reports pain feels similar to prior episodes of gastritis or gas. Denies any headache or vision changes. Reports two bowel movements this am after waking. Denies any bright red blood in stool or dark, tarry stool. MD complaint: chest pain Onset (ago): hour(s) Timing of current episode: episodic Onset: during rest Pain location: left chest Pain radiation: none Severity: mild Pain scale (0-10): 4 Quality: burning Relieving factors: nothing Exacerbating factors: nothing Treatment prior to arrival: none Related Data Home Medications Medication Instructions Recorded Confirmed aspirin 325 mg tablet 325 mg PO DAILY PRN 07/24/22 11/30/22 Previous Rx's Medication Instructions Recorded metoprolol succinate 25 mg 25 mg PO DAILY #90 tabs 10/18/22 tablet,extended release 24 hr amlodipine 5 mg tablet (Norvasc) 5 mg PO DAILY 90 days #90 tabs 02/26/23 Allergies Allergy/AdvReac Type Severity Reaction Status Date / Time No Known Allergies Allergy Verified 01/16/23 12:19 Review of Systems Review of Systems: As per HPI. Yes all other systems are reviewed and are negative Constitutional: Constitutional: Reports as per HPI PMFSH Past Medical History Surgical History No pertinent past surgical history Family History Family History Mother HTN (hypertension) Gastric lymphoma Father Lung cancer Sister CAD (coronary artery disease) Brother Prostate cancer genetic susceptibility HTN (hypertension) Social History Social History (Reviewed 05/09/23 @ 12:20 by KAYLEN Moe Housing: House Alcohol intake: never Patient Tobacco Use Status: Never used Tobacco Smoked in Last 30 Days: No e-Cigarette/Vaping Use: Never Used Second Hand Smoke Exposure: No Use of substances other than those prescribed or required for medical reasons: No Advance Directives: Yes Advance Directives Information Provided: Yes Advance Directives on File: No service: No 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 Blood pressure normal. Heart rate normal. Respiratory rate normal. Temperature normal. Oxygen saturation normal. Const: General: cooperative, healthy appearing and no acute distress Orientation/consciousness: oriented to person, oriented to place, oriented to time and patient oriented x3 Limitations: no limitations HEENT: Head: Yes normocephalic and Yes atraumatic Ears: external ears normal General nose exam: Normal external nose present Face and sinus: Yes face symmetric Mouth: oropharynx normal and moist mucous membranes Throat: Yes uvula midline Eyes: Pupils: Equal, round and reactive pupils present Neck: Neck: Yes normal visual inspection and Yes supple Resp: Effort & Inspection: normal respiratory effort and able to speak in complete sentences Auscultation: clear to auscultation bilaterally Cardio: Rate: regular rate Rhythm: regular rhythm Heart sounds: S1 nor mal heart sound present and S2 normal heart sound present GI: Palpation (GI): Soft to palpation and nontender Auscultation: normoactive bowel sounds : General: Yes no CVA tenderness Back/Spine/Pelvis: Back: no CVA tenderness Skin: General skin exam: elasticity normal and turgor normal Neuro: General: oriented to person, oriented to place, oriented to time, patient oriented x3, moves all extremities, no focal motor deficits and CN's II- XI intact bilaterally Cranial nerves: Yes Equal, round and reactive pupils present Cognition (Neuro): normal cognition Extrem: General: Yes full ROM, Yes no pedal edema and Yes no calf tenderness Psych: Mental Status: mental status grossly normal Affect: normal affect Thought process: Normal thought process present Medications Administered Discontinued Medications Generic Name Dose Route Start Last Admin Trade Name Cheri PRN Reason Stop Dose Admin Al Hydroxide/Mg Hydroxide 30 ml 03/09/23 08:57 03/09/23 09:15 Magnesium Hydrox/Alum Hydrox 30 Ml Oral.Susp PO 03/09/23 08:58 30 ml ONCE ONE Administration Medical Decision Making Medical Decision Making [facility] Narrative: Patient is a 77-year-old female with history of HTN, osteoporosis, arthritis, atrial tachycardia presenting with intermittent episodes of left anterior chest pain which woke her from sleep around 4:00 a.m. On exam patient is awake, A+Ox3, normal neurological exam without focal deficits, VS WNL, afebrile,?denies current chest pain, LS CTA throughout, abdomen soft and nontender.? No evidence of STEMI on EKG. Given reported symptoms and physical exam findings, differential includes?ACS, gastritis/GERD, pneumonia. Labs notable for negative initial troponin, no leukocytosis, no anemia. X-ray notable for?no evidence of infiltrate, pneumothorax, pleural effusion, or pulmonary edema.? My interpretation is in agreement with the radiologist's interpretation. Unlikely aortic dissection, esophageal rupture, PE, tamponade, endocarditis/pericarditis. Plan: Will obtain delta troponin and reassess.? ? 9:47 Delta trop negative. Symptoms improved with Maalox. Spoke with Dr. Reyes via [place] [employer] who feels patient is stable for discharge home with outpatient follow up. Instructed patient to follow up with PCP as well. Return precautions discussed at bedside. Patient verbalized understanding of and agreement with plan. ? Differential Diagnosis Differential Diagnoses: The differential diagnosis associated with the presentation includes As above. Admission/Observation Consideration of admission/observation: Escalation of care including admi ssion/observation considered Given concern for ACS considered admission on arrival. Consult Healthcare Provider Management of the patient was discussed with: Delivery Representative (Dr. Reyes) Lab Data [facility] Lab Attestation statement: I reviewed the patient's lab results. Notable for negative initial troponin, no leukocytosis, no anemia. 03/09/23 05:55 06/30/23 05:55 Labs: Lab Results 03/09/23 03/09/23 03/09/23 Range/Units 05:55 05:55 05:55 WBC 5.3 (4.8-10.8) X10*3/uL RBC 4.75 (4.20-5.50) X10*6/uL Hgb 14.2 (12.0-16.0) g/dl Hct 42.0 (37.0-47.0) % MCV 88.4 (80.0-98.0) fL MCH 29.9 (27.0-33.0) pg MCHC 33.8 (31.0-35.0) g/dl RDW 12.7 (11.0-16.0) % Plt Count 213 (160-400) X10*3/uL MPV 9.0 L (9.4-12.3) fL Immature Gran % (Auto) 0.4 (0.0-0.4) % Neut % (Auto) 65.6 (45-73) % Lymph % (Auto) 21.7 (20-40) % [place] % (Auto) 8.4 (2-11) % Eos % (Auto) 3.2 (0-4) % Baso % (Auto) 0.7 (0-2) % Lymph # (Auto) 1.2 (1.2-4.9) X10*3/uL [place] # (Auto) 0.5 (0.1-1.2) X10*3/uL Eos # (Auto) 0.2 (0.0-0.4) X10*3/uL Baso # (Auto) 0.0 (0.0-0.2) X10*3/uL Abs Immat Gran (auto) 0.02 (0.00-0.03) X10*3/uL Absolute Neuts (auto) 3.5 (2.0-8.3) x10*3/uL Absolute Nucleated RBC 0.000 (0.0-0.012) X10*3/uL Nucleated RBC % (auto) 0.0 (0.0-0.2) /100WBC Sodium 143 (135-145) mmol/L Potassium 4.0 (3.3-5.1) mmol/L Chloride 106 (96-108) mmol/L Carbon Dioxide 27 (22-29) mmol/L Anion Gap 14 (12-20) BUN 17 H (9-16) mg/dL Creatinine 0.68 (0.5-1.4) mg/dL Estim Creat Clear Calc 65.9 Estimated GFR > 60 Random Glucose 115 (60-115) mg/dL Calcium 9.9 D (8.4-10.2) mg/dL Troponin I High Sens < 2.7 (<3.5-17.0) ng/L Urine Color Urine Appearance Urine pH (5.0-9.0) Ur Specific [place] (1.005-1.025) Urine Protein (Neg-Trace) mg/dL Urine Glucose (UA) (Negative) mg/dL Urine Ketones (Negative) mg/dL Urine Blood (Negative) Urine Nitrite (Negative) Ur Leukocyte Esterase (Negative) Urine RBC (0-2) /HPF Urine WBC (0-5) /HPF Ur Squamous Epith Cells (0-2) /HPF Urine Bacteria (None Seen) Hyaline Casts (0-2) /LPF 03/09/23 03/09/23 Range/Units 07:30 08:55 WBC (4.8-10.8) X10*3/uL RBC (4.20-5.50) X10*6/uL Hgb (12.0-16.0) g/dl Hct (37.0-47.0) % MCV (80.0-98.0) fL MCH (27.0-33.0) pg MCHC (31.0-35.0) g/dl RDW (11.0-16.0) % Plt Count (160-400) X10*3/uL MPV (9.4-12.3) fL Immature Gran % (Auto) (0.0-0.4) % Neut % (Auto) (45-73) % Lymph % (Auto) (20-40) % [place] % (Auto) (2-11) % Eos % (Auto) (0-4) % Baso % (Auto) (0-2) % Lymph # (Auto) (1.2-4.9) X10*3/uL [place] # (Auto) (0.1-1.2) X10*3/uL Eos # (Auto) (0.0-0.4) X10*3/uL Baso # (Auto) (0.0-0.2) X10*3/uL Abs Immat Gran (auto) (0.00-0.03) X10*3/uL Absolute Neuts (auto) (2.0-8.3) x10*3/uL Absolute Nucleated RBC (0.0-0.012) X10*3/uL Nucleated RBC % (auto) (0.0-0.2) /100WBC Sodium (135-145) mmol/L Potassium (3.3-5.1) mmol/L Chloride (96-108) mmol/L Carbon Dioxide (22-29) mmol/L Anion Gap (12-20) BUN (9-16) mg/dL Creatinine (0.5-1.4) mg/dL Estim Creat Clear Calc Estimated GFR Random Glucose (60-115) mg/dL Calcium (8.4-10.2) mg/dL Troponin I High Sens < 2.7 (<3.5-17.0) ng/L Urine Color Yellow Urine Appearance Clear Urine pH 7.5 (5.0-9.0) Ur Specific [place] <= 1.005 (1.005-1.025) Urine Protein Negative (Neg-Trace) mg/dL Urine Glucose (UA) Negative (Negative) mg/dL Urine Ketones Negative (Negative) mg/dL Urine Blood Trace H (Negative) Urine Nitrite Negative (Negative) Ur Leukocyte Esterase Negative (Negative) Urine RBC 3-5 H (0-2) /HPF Urine WBC 0-5 (0-5) /HPF Ur Squamous Epith Cells 0-2 (0-2) /HPF Urine Bacteria None Seen (None Seen) Hyaline Casts 0-2 (0-2) /LPF Independent Interpretation I performed an independent interpretation of an: EKG and Plain X-Ray Interpretation: EKG: normal sinus rhythm, rate 65bpm, normal NC interval, no evidence of STEMI I independently reviewed the x-ray and agree with the radiologist's interpretation of no acute cardiopulmonary findings. Radiology Impression Discussion of test interpretation with radiology: I have reviewed the radiologist's reading. Radiologist Impression: XR/XR chest 1V IMPRESSION: No acute cardiopulmonary findings. ? External Record Review External record reviewed: Inpatient record, Office record and Outpatient record Scores Heart Score History: -1- moderately suspicious ECG: -0- normal Age: -2- > or = 65 Risk factory: -1- 1 or 2 risk factors Troponin: -0- < or = normal limit Score: 4 Risk: 16.6% Discharge Plan Discharge Clinical Impression: Chest pain Patient Disposition: Home, Self-Care Instructions: Chest Pain (DC) Additional Instructions: You were evaluated in the emergency department today for chest pain. 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 Please schedule an appointment for follow-up with your primary care physician as soon as possible. Return to the emergency department if you experience worsening or uncontrolled chest pain, shortness of breath, lightheadedness, feeling faint, loss of consciousness, nausea, vomiting, or any other concerning symptoms. Prescriptions: No Action metoprolol succinate 25 mg tablet extended release 24 hr 25 mg PO DAILY Qty: 90 3RF amlodipine [Norvasc] 5 mg tablet 5 mg PO DAILY 90 Days Qty: 90 0RF aspirin 325 mg tablet 325 mg PO DAILY PRN Referrals: [facility] [Provider Group]
[2023-03-09 07:43] LABS: Appearance Urine Clear; Color Urine Yellow; Glucose Urine UA Negative (Negative); Leukocyte Esterase Urine Negative (Negative); Nitrite Urine Negative (Negative); PH 7.5 (5.0-9.0); Specific Gravity - Urine <= 1.005 (1.005-1.025); UMIC TRIGGER UACC YES; Urine Blood Trace (Negative); Urine Ketones Negative (Negative); Urine Protein Negative (Neg-Trace)
[2023-03-09 07:45] LABS: Bacteria Urine None Seen (None Seen); Hyaline Casts Urine 0-2 /LPF (0-2); Squamous Epithelial Cell Urine 0-2 /HPF (0-2); WBC Urine 0-5 /HPF (0-5)
[2023-03-09 08:13] VITALS: BP 143/80; PULSE 69; RESP 12; TEMP 36.7; O2SAT 97
[2023-03-09] MEDS: Magnesium Hydrox/Alum Hydrox 30 ML ORAL.SUSP PO (09:15)
[2023-03-09 09:33] LABS: Troponin-I High Sensitivity < 2.7 ng/L (<3.5-17.0)
== END 2023-03-09 10:12 | disposition home or self-care (01) ==
PROVIDERS: Registered Nurse Emergency; Emergency Provider Emergency Medicine Emergency Medical Services; PCP Nurse Practitioner Family
DX: R07.9 Chest pain, unspecified (principal); I10 Essential (primary) hypertension; Z79.82 Long term (current) use of aspirin; Z79.899 Other long term (current) drug therapy
CPT/HCPCS: 36415; 71045; 80048; 81001; 84484; 85025; 93005; 99284; 99285

== ENCOUNTER 2023-04-25 09:38 | Outpatient (AMB) | payer MEDICARE, SELFPAY ==
[2023-04-25 10:02] VITALS: BP 122/80; PULSE 52; O2SAT 100; BMI 22.2
--- NOTE | 2023-04-25 10:02 | MHC.PC.OV ---
Vital Signs 04/25/23 10:02 Height 5 ft 6 in Weight 137 lb 6 oz BMI 22.2 BP 122/80 Blood Pressure Location Rt brachial Position Sitting Pulse 52 Pulse Source Pulse Oximeter Pulse Oximetry (%) 100 Oxygen Delivery Method Room Air Intake Visit Reasons: Swollen Gland / Lump On Throat Intake Note: pt says she had a tick bite a few weeks ago Allergies No Known Allergies Allergy (Verified 04/25/23 10:04) Medication List - Last Reconciled 04/25/23 by LEATHA Guerra amlodipine (Norvasc) 5 mg PO DAILY 90 days aspirin 325 mg PO DAILY PRN doxycycline hyclate 100 mg PO BID 21 days metoprolol succinate ER 25 mg PO DAILY Tobacco use date assessed: 04/25/23 Fall risk assessment: No Falls in past year Last assessed Fall Risk: 04/25/23 Dental Screening Dental Screen Date: 04/25/23 Did you have a dental visit in the last 12 months?: Yes Did you have a dental problem in the last 6 months where you did not have access to dental care?: No Was dental information given to patient?: Patient has dentist HPI Swollen Gland / Lump On Throat HPI Details Pt reports some right-sided throat swelling and raspy voice. She reports finding a tick on 04/08 and has had symptoms since (pt removed tick that was attached to her left foot region). Pt reports feeling tightness in her throat, describes squeezing. SHe reports it is getting slightly better, but still present, pointing to her thyroid region. Will order labs including tick testing and send doxy. Will also order US of neck. Denies fever, chills, and shortness of breath. 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 Nic Luke, Celsa Rogers, Ramiro Rivers and colleagues, with an educational iraida from [employer]. Review of Systems Const Reports as per HPI Physical exam (Primary Care) Vital Signs: Last Vital Signs Pulse 52 04/25/23 10:02 BP 122/80 04/25/23 10:02 Pulse Ox 100 04/25/23 10:02 Oxygen Delivery Method Room Air 04/25/23 10:02 BMI result Body Mass Index 22.2 Tobacco/Smoking Status: Tobacco use Status Tobacco use date assessed 04/25/23 04/25/23 10:06 Patient Tobacco Use Status Never used Tobacco 04/25/23 10:02 e-Cigarette/Vaping Use Never Used 04/25/23 10:02 Thrive Assessment: Date of Thrive Assessment Date Thrive assessed 03/09/22 04/25/23 10:02 Const General: cooperative and no acute distress Orientation/consciousness: patient oriented x3 HENMT Throat: Yes posterior oropharynx normal Neck Other: some swelling to right thyroid Neck: Yes no lymphadenopathy Resp Effort & Inspection: normal respiratory effort Auscultation: clear to auscultation bilaterally Cardio Rate: regular rate Rhythm: regular rhythm Heart sounds: S1 normal heart sound present, S2 normal heart sound present and Murmur heart sound present systolic Skin Other: no rashing/ EM Rashes: no rashes Neuro General: patient oriented x3 Psych Appearance: grossly normal Mental Status: mental status grossly normal Speech and movement: Normal speech and movement present Affect: normal affect Attitude: cooperative Thought process: Normal thought process present Thought content: Normal thought content present Insight: Good insight present (Psych) Judgement: Good judgement present (Psych) Assessment and Plan Assessment & Plan (1) Tick bite: Code(s): W57.XXXA - Bitten or stung by nonvenomous insect and other nonvenomous arthropods, initial encounter Plan: Tick testing ordered with labs (2) Neck swelling: Code(s): R22.1 - Localized swelling, mass and lump, neck Plan: US ordered Plan The patient agreed to the use of a medical records field technician for this encounter. Scribed for ROGELIO Bailon- by Kandi aTte medical records field technician, on 04/25/2023 at 10:15 EST. Orders: Orders Comprehensive Met. Panel Today W57.XXXA - Bitten or stung by nonvenomous insect and other nonvenomous arthropods, initial encounter TSH reflex Free T4 Today W57.XXXA - Bitten or stung by nonvenomous insect and other nonvenomous arthropods, initial encounter Complete Blood Count Auto Diff Today W57.XXXA - Bitten or stung by nonvenomous insect and other nonvenomous arthropods, initial encounter Tick-borne Disease Molecular Today W57.XXXA - Bitten or stung by nonvenomous insect and other nonvenomous arthropods, initial encounter UA CC w/rflx Micro + Cult Today W57.XXXA - Bitten or stung by nonvenomous insect and other nonvenomous arthropods, initial encounter US soft tiss head and/or neck Today R22.1 - Localized swelling, mass and lump, neck Medications: New doxycycline hyclate 100 mg PO BID 42 caps 0RF 21 days Coding Level of Care Code Est Pt Level 3 (14268) Diagnoses Tick bite W57.XXXA Neck swelling R22.1
== END 2023-04-25 11:05 | disposition home or self-care (01) ==
PROVIDERS: PCP Nurse Practitioner Family; Visit Provider Nurse Practitioner Family
DX: T63.481A Toxic effect of venom of other arthropod, accidental (unintentional), initial encounter (principal); R22.1 Localized swelling, mass and lump, neck
CPT/HCPCS: 99213

== ENCOUNTER 2023-04-25 10:35 | Outpatient (REF) | payer MEDICARE, SELFPAY ==
[2023-04-25 13:12] LABS: MANUAL DIFF FLAG NO
[2023-04-25 13:20] LABS: Basophils Absolute Auto 0.1 X10*3/uL (0.0-0.2); Basophils Percent Auto 0.9 % (0-2); Eosinophils Absolute Auto 0.1 X10*3/uL (0.0-0.4); Eosinophils Percent Auto 1.9 % (0-4); Hematocrit 43.9 % (37.0-47.0); Hemoglobin 14.4 g/dl (12.0-16.0); Imm Gran Abs Auto 0.02 X10*3/uL (0.00-0.03); Imm Gran Pct Auto 0.3 % (0.0-0.4); Lymphocytes Absolute Auto 1.3 X10*3/uL (1.2-4.9); Lymphocytes Percent Auto 23.1 % (20-40); Mean Corpuscular HGB Conc 32.8 g/dl (31.0-35.0); Mean Corpuscular Hemoglobin 29.9 pg (27.0-33.0); Mean Corpuscular Volume 91.1 fL (80.0-98.0); Mean Platelet Volume 9.9 fL (9.4-12.3); Monocytes Absolute Auto 0.5 X10*3/uL (0.1-1.2); Monocytes Percent Auto 8.9 % (2-11); Neutrophils Absolute Auto 3.7 x10*3/uL (2.0-8.3); Neutrophils Percent Auto 64.9 % (45-73); Platelet Count 263 X10*3/uL (160-400); Red Blood Count 4.82 X10*6/uL (4.20-5.50); Red Cell Distribution Width 12.6 % (11.0-16.0); White Blood Count 5.7 X10*3/uL (4.8-10.8)
[2023-04-25 13:25] LABS: Appearance Urine Clear; Color Urine Yellow; Glucose Urine UA Negative (Negative); Leukocyte Esterase Urine Trace (Negative); Nitrite Urine Negative (Negative); PH 6.5 (5.0-9.0); Specific Gravity - Urine 1.015 (1.005-1.025); UMIC TRIGGER UACC YES; Urine Blood Negative (Negative); Urine Ketones Negative (Negative); Urine Protein Negative (Neg-Trace)
[2023-04-25 13:32] LABS: Bacteria Urine None Seen (None Seen); Hyaline Casts Urine 0-2 /LPF (0-2); Squamous Epithelial Cell Urine 0-2 /HPF (0-2); WBC Urine 0-5 /HPF (0-5)
[2023-04-25 13:50] LABS: Alanine Aminotransferase 17 U/L (0-31); Albumin Level 4.3 g/dL (3.5-5.0); Alkaline Phosphatase 54 U/L (39-117); Anion Gap 11 (12-20); Aspartate Amino Transferase 23 U/L (5-31); Bilirubin Total 0.6 mg/dL (0.0-1.0); Blood Urea Nitrogen 12 mg/dL (9-16); Calcium 9.9 mg/dL (8.4-10.2); Carbon Dioxide 31 mmol/L (22-29); Chloride 105 mmol/L (96-108); Estimated Glomerular Filt Rate > 60; Glucose Random 83 mg/dL (60-115); Potassium 4.6 mmol/L (3.3-5.1); Sodium 142 mmol/L (135-145)
[2023-04-25 14:07] LABS: TSH reflex Free T4 0.74 uIU/mL (0.32-4.0)
[2023-04-26 17:54] LABS: A. Phagocytphilium DNA,RT-PCR NOT DETECTED (NOT DETECTED); Babesia Microti DNA, RT-PCR NOT DETECTED (NOT DETECTED); Borrelia Miyamotoi,DNA RT-PCR NOT DETECTED (NOT DETECTED); E.Chaffeensis DNA RT-PCR NOT DETECTED (NOT DETECTED); Lyme(Borrelia ssp)DNA RT-PCR NOT DETECTED (NOT DETECTED)
== END 2023-04-25 10:36 | disposition home or self-care (01) ==
LOC: HO.HMGCLDS 10:35
PROVIDERS: PCP Nurse Practitioner Family; Visit Provider Nurse Practitioner Family
DX: D72.819 Decreased white blood cell count, unspecified (principal); T14.8XXA Other injury of unspecified body region, initial encounter; W57.XXXA Bitten or stung by nonvenomous insect and other nonvenomous arthropods, initial encounter; Y93.9 Activity, unspecified; Y92.9 Unspecified place or not applicable; Y99.9 Unspecified external cause status; M25.50 Pain in unspecified joint; E04.1 Nontoxic single thyroid nodule
CPT/HCPCS: 36415; 80053; 81001; 84443; 85025; 87798; 87801

== ENCOUNTER 2023-05-01 13:33 | Outpatient (REF) | payer MEDICARE, SELFPAY ==
--- NOTE | ~2023-05-01 | US_ITS ---
EXAMINATION: US SOFT TISSUE NECK US THYROID CLINICAL INFORMATION: Right neck swelling status post tick bite in area of right neck level II and III, fullness as indicated by patient. TECHNIQUE: Ultrasound of the neck soft tissues is performed with high-frequency obando-scale imaging and color Doppler. Linear transducer obando-scale and color Doppler examination with attention to the region of the thyroid. FINDINGS: SOFT TISSUES NECK: Targeted ultrasound images were obtained by the regional company flatbed truck driver of the area of concern as indicated by the patient in the right neck at level II and III. Radiologist was not in attendance. Images were later provided for interpretation. Right level II lymph node with benign features including echogenic hilum and normal renal cortical thickness measures 1.0 x 0.4 x 1.0 cm. THYROID GLAND: SIZE: Measurements of the thyroid lobes and nodules are given in sagittal, anteroposterior and transverse dimensions respectively. Right Thyroid Lobe: 5.1 x 2.1 x 2.3 cm, volume 12.5 mL. Parenchyma: The gland echotexture is heterogeneous. Thyroid vascularity is hypervascular. Left Thyroid Lobe: 5.3 x 1.5 x 1.4 cm, volume 5.6 mL. Parenchyma: The gland echotexture is heterogeneous. Thyroid vascularity is hypervascular. Isthmus: 0.2 cm in maximum AP dimension. Estimated total number of nodules greater than or equal to 1 cm: 1. French Edge Operator nodules are described as follows: 1. Location: Right upper. Size: 2.4 x 1.6 x 2.0 cm, volume 4.0 mL. Nodule characteristics: Composition: Solid (2). Echogenicity: Isoechoic (1). Shape: Not taller than wide (0). Margins: Smooth (0). Echogenic Foci: Punctate echogenic foci (3). ACR TI-RADS total points: 6 ACR TI-RADS category: 4 NODES: No lymphadenopathy is seen in the tissue surrounding the thyroid gland. US/US soft tiss head and/or neck IMPRESSION: 1. Right thyroid 2.4 cm TR4 nodule meets criteria for biopsy. Fine-needle aspiration recommended. 2. Diffusely heterogeneous and hypervascular thyroid gland. Correlation with thyroid function tests and clinical exam recommended. 3. Right cervical level II lymph node measures 1.0 cm. Decisions regarding further management should be based on the clinical assessment. This study was presented today 05/02/2023 at 12:15 PM for interpretation. PSA staff will provide results to referring provider at this time. ACR TI-RADS RECOMMENDATION REFERENCE: Ultrasound-guided fine-needle aspiration, followup ultrasound, no further follow up. * TR1 (0 point) and TR2 (2 points): No FNA or follow up. * TR3 (3 points): FNA if more than or equal to 2.5 cm in maximum dimension, followup ultrasound in 1, 3 and 5 years if 1.5 to 2.4 cm in maximum dimension. * TR4 (4-6 points): FNA if more than or equal to 1.5 cm in maximum dimension, followup ultrasound in 1, 2, 3 and 5 years if 1 to 1.4 cm in maximum dimension. * TR5 (more than or equal to 7 points): FNA if more than or equal to 1 cm in maximum dimension, followup ultrasound every year for 5 years if 0.5 to 0.9 cm in maximum dimension. * TR3, TR4 or TR5 nodules that are below the size threshold for followup receive no follow up.
== END 2023-05-01 13:34 | disposition home or self-care (01) ==
LOC: HO.HMGCX 13:33
PROVIDERS: PCP Nurse Practitioner Family; Visit Provider Nurse Practitioner Family
DX: R22.1 Localized swelling, mass and lump, neck (principal)
CPT/HCPCS: 76536

== ENCOUNTER 2023-05-28 09:12 | Outpatient (AMB) | payer MEDICARE, SELFPAY ==
--- NOTE | 2023-05-28 09:27 | MHC.PC.OV ---
Vital Signs 05/28/23 09:28 Height 5 ft 6 in Weight 140 lb 4 oz BMI 22.6 BP 132/86 Blood Pressure Location Lt brachial Position Sitting Pulse 61 Pulse Source Pulse Oximeter Pulse Oximetry (%) 98 Oxygen Delivery Method Room Air Intake Visit Reasons: 6m follow up HTN Intake Note: pt is here to follow up on her US Allergies No Known Allergies Allergy (Verified 05/28/23 10:11) Medication List - Last Reconciled 05/28/23 by LEATHA Guerra amlodipine (Norvasc) 5 mg PO DAILY 90 days aspirin 325 mg PO DAILY PRN metoprolol succinate ER 25 mg PO DAILY Tobacco use date assessed: 05/28/23 Fall risk assessment: No Falls in past year Last assessed Fall Risk: 05/28/23 Dental Screening Dental Screen Date: 05/28/23 Did you have a dental visit in the last 12 months?: Yes Did you have a dental problem in the last 6 months where you did not have access to dental care?: No Was dental information given to patient?: Patient has dentist HPI 6m follow up HTN HPI Details recent UTI, just finished macrobid. Will order UA/culture. Denies fever, chills, and hematuria. Pt has some right-sided wheezes on exam, will order chest XR. Denies any symptoms (fevers, chills, CP, SOB, N/V). Pt is following up with endo due to thyroid nodule. 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 Nic Luke, Celsa Rogers, Ramiro Rivers and colleagues, with an educational iraida from [employer]. Review of Systems Const Reports as per HPI Physical exam (Primary Care) Vital Signs: Last Vital Signs Pulse 61 05/28/23 09:28 BP 132/86 05/28/23 09:28 Pulse Ox 98 05/28/23 09:28 Oxygen Delivery Method Room Air 05/28/23 09:28 BMI result Body Mass Index 22.6 Tobacco/Smoking Status: Tobacco use Status Tobacco use date assessed 05/28/23 05/28/23 09:32 Patient Tobacco Use Status Never used Tobacco 05/28/23 09:32 e-Cigarette/Vaping Use Never Used 05/28/23 09:32 Thrive Assessment: Date of Thrive Assessment Date Thrive assessed 03/09/22 05/28/23 09:32 Const General: cooperative Orientation/consciousness: patient oriented x3 Neck Other: palpable thyroid nodule right side Resp Other: right-sided wheeze noted Effort & Inspection: normal respiratory effort Auscultation: clear to auscultation bilaterally (faint wheeze to right mid) Cardio Rate: regular rate Rhythm: regular rhythm Heart sounds: S1 normal heart sound present, S2 normal heart sound present and Murmur heart sound present systolic Neuro General: patient oriented x3 Psych Appearance: grossly normal Mental Status: mental status grossly normal Speech and movement: Normal speech and movement present Affect: normal affect Attitude: cooperative Thought process: Normal thought process present Thought content: Normal thought content present Insight: Good insight present (Psych) Judgement: Good judgement present (Psych) Assessment and Plan Assessment & Plan (1) UTI (urinary tract infection): Code(s): N39.0 - Urinary tract infection, site not specified Plan: UA/culture ordered (2) Wheezing: Code(s): R06.2 - Wheezing (3) Thyroid nodule: Code(s): E04.1 - Nontoxic single thyroid nodule (4) HTN (hypertension): Comment: stable Code(s): I10 - Essential (primary) hypertension Plan The patient agreed to the use of a medical laboratory manager for this encounter. Scribed for LEATHA Bailon by Kandi Tate medical laboratory manager, on 05/28/2023 at 09:45 EST. Orders: Orders UA CC w/rflx Micro + Cult Today N39.0 - Urinary tract infection, site not specified Urine Culture Today N39.0 - Urinary tract infection, site not specified XR chest 2V Today R06.2 - Wheezing Coding Level of Care Code Est Pt Level 3 (77930) Diagnoses UTI (urinary tract infection) N39.0 Wheezing R06.2 Thyroid nodule E04.1 HTN (hypertension) I10
[2023-05-28 09:28] VITALS: BP 132/86; PULSE 61; O2SAT 98; BMI 22.6
== END 2023-05-28 10:00 | disposition home or self-care (01) ==
PROVIDERS: Visit Provider Nurse Practitioner Family
DX: N39.0 Urinary tract infection, site not specified (principal); R06.2 Wheezing; E04.1 Nontoxic single thyroid nodule; I10 Essential (primary) hypertension
CPT/HCPCS: 99213

== ENCOUNTER 2023-05-28 10:00 | Outpatient (REF) | payer MEDICARE, SELFPAY ==
--- NOTE | ~2023-05-28 | XR_ITS ---
EXAMINATION: XR CHEST CLINICAL INFORMATION: Wheezing. COMPARISON: 03/09/2023 TECHNIQUE: 2 views of the chest were obtained. FINDINGS: The lungs are hyperexpanded. There is a stable 1.0 cm nodular density projecting over the right lung base. This corresponds to a calcified nodule on CT chest 11/08/2021. No confluent opacity to suggest developing pneumonia. No pleural effusion. Cardiac silhouette is unchanged. Calcified granulomas in the spleen were previously demonstrated. XR/XR chest 2V IMPRESSION: No acute abnormality.
[2023-05-28 13:33] LABS: MANUAL DIFF FLAG NO
[2023-05-28 13:36] LABS: Appearance Urine Clear; Color Urine Yellow; Glucose Urine UA Negative (Negative); Leukocyte Esterase Urine Negative (Negative); Nitrite Urine Negative (Negative); Specific Gravity - Urine <= 1.005 (1.005-1.025); Urine Blood Negative (Negative); Urine Ketones Negative (Negative); Urine Protein Negative (Neg-Trace)
[2023-05-28 13:53] LABS: Basophils Percent Auto 0.6 % (0-2); Eosinophils Absolute Auto 0.1 X10*3/uL (0.0-0.4); Hematocrit 41.8 % (37.0-47.0); Hemoglobin 13.9 g/dl (12.0-16.0); Imm Gran Abs Auto 0.02 X10*3/uL (0.00-0.03); Imm Gran Pct Auto 0.4 % (0.0-0.4); Lymphocytes Absolute Auto 1.3 X10*3/uL (1.2-4.9); Lymphocytes Percent Auto 23.5 % (20-40); Mean Corpuscular HGB Conc 33.3 g/dl (31.0-35.0); Mean Corpuscular Hemoglobin 29.9 pg (27.0-33.0); Mean Corpuscular Volume 89.9 fL (80.0-98.0); Mean Platelet Volume 10.1 fL (9.4-12.3); Monocytes Absolute Auto 0.5 X10*3/uL (0.1-1.2); Neutrophils Absolute Auto 3.5 x10*3/uL (2.0-8.3); Neutrophils Percent Auto 64.5 % (45-73); Platelet Count 251 X10*3/uL (160-400); Red Blood Count 4.65 X10*6/uL (4.20-5.50); Red Cell Distribution Width 12.9 % (11.0-16.0); White Blood Count 5.4 X10*3/uL (4.8-10.8)
== END 2023-05-28 10:01 | disposition home or self-care (01) ==
LOC: HO.HMGCX 10:00
PROVIDERS: PCP Nurse Practitioner Family; Visit Provider Nurse Practitioner Family
DX: R06.2 Wheezing (principal); N39.0 Urinary tract infection, site not specified; T14.8XXA Other injury of unspecified body region, initial encounter; W57.XXXA Bitten or stung by nonvenomous insect and other nonvenomous arthropods, initial encounter
CPT/HCPCS: 36415; 71046; 81003; 85025; 87086

== ENCOUNTER 2023-07-02 11:16 | Outpatient (AMB) | payer MEDICARE, SELFPAY ==
--- NOTE | 2023-07-02 11:30 | MHC.OFFVIS ---
Intake Vital Signs 07/02/23 11:31 Height 5 ft 6 in Weight 137 lb 9.095 oz BMI 22.2 BP 112/68 Blood Pressure Location Lt brachial Position Sitting Pulse 57 Intake Visit Reasons: 6 month follow up Intake Note: 6 month follow up Furniture Cleaner Required: No Accompanied by: Self / Same As Patient Allergies No Known Allergies Allergy (Verified 07/02/23 11:32) Medication List - Last Reconciled 07/02/23 by Noman Reyes MD amlodipine (Norvasc) 5 mg PO DAILY 90 days aspirin 325 mg PO DAILY PRN metoprolol succinate ER 25 mg PO DAILY HPI HPI Comments History of Present Illness Details 77-year-old female here for follow-up. She has background history of palpitations. She was started on metoprolol in the past with some improvement in her symptoms. She is returning in complaining of palpitations happening once every couple of weeks. She is describing that the heart skips beats. She has no chest discomfort shortness of breath. 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 She previously had echocardiography which showed basal inferior wall motion abnormality. Given lack of symptoms we did not pursue any further testing for that. She is on metoprolol and Norvasc and her blood pressure control is good. 07/02/23: She returns for follow-up. Previously cardiac event monitor did not show any significant arrhythmia. She continues to get some palpitations 1 to twice a month lasting for few seconds. She is saying she takes full-dose aspirin because she had plaque seen in her left eye at 1 stage by her off tube cutter. Her blood pressure control is good. 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 Current occupational exposures/hazards: No Cognitive needs: No Hearing needs: No Vision needs: No Review of Systems Const Denies weakness ENT Denies dizziness Card Denies chest pain, Denies chest pain with activity, Denies syncope, Denies rapid heart rate, Denies pedal edema, Denies edema, Denies leg edema, Denies lightheadedness, Denies palpitations, Denies dyspnea, Denies dyspnea on exertion and Denies orthopnea Resp Denies cough, Denies dyspnea and Denies dyspnea on exertion GI Denies hematochezia and Denies change in stool character Musc Denies abnormal gait, Denies muscle cramps, Denies muscle weakness, Denies numbness, Denies radiating pain into limb and Denies tingling Neuro Denies abnormal gait, Denies dizziness, Denies syncope, Denies numbness, Denies tingling and Denies weakness Endo Denies palpitations Physical Exam Vital Signs: Last Vital Signs Pulse 57 07/02/23 11:31 BP 112/68 07/02/23 11:31 BMI result Body Mass Index 22.2 GENERAL APPEARANCE: in no acute distress, pleasant. NECK: no carotid bruit, no jugular venous distention. SKIN: no suspicious lesions, warm and dry. HEART: no murmurs, regular rate and rhythm. LUNGS: clear to auscultation bilaterally. ABDOMEN: soft, nontender. EXTREMITIES: no edema. PERIPHERAL PULSES: equal. NEUROLOGIC: No gross deficits, AAO X 3 Assessment & Plan Assessment & Plan (1) Palpitations: Code(s): R00.2 - Palpitations Plan [age] year female who is here for follow-up. She has history of palpitations. Cardiac event monitor did not show any significant arrhythmia. She has rare symptoms currently and overall is stable. Blood pressure control is good. I have advised her to use baby aspirin rather than full dose aspirin. The benefits are the same and full-dose aspirin will increase her risk of GI complications. Follow-up with us in 1 year. Thank you for allowing me to participate in the care of your patient. Please feel free to contact me if you have any questions. Medications: New aspirin (Adult Aspirin Regimen) 81 mg PO DAILY 1 tab 0RF Coding Level of Care Code Est Pt Level 4 (10583) Diagnoses Palpitations R00.2
[2023-07-02 11:31] VITALS: BP 112/68; PULSE 57; BMI 22.2
== END 2023-07-02 11:50 | disposition home or self-care (01) ==
PROVIDERS: PCP Nurse Practitioner Family; Visit Provider Internal Medicine Cardiovascular Disease
DX: R00.2 Palpitations (principal)
CPT/HCPCS: 99214

== ENCOUNTER → 2023-07-02 11:16 | Outpatient (BNVA) | payer MEDICARE, SELFPAY | PROVIDERS: PCP Nurse Practitioner Family; Visit Provider Internal Medicine Cardiovascular Disease | DX: R00.2 Palpitations (principal) | CPT/HCPCS: 99212 ==

== ENCOUNTER 2023-07-16 10:40 | Outpatient (AMB) | payer MEDICARE, SELFPAY ==
[2023-07-16 12:34] VITALS: BP 120/68; PULSE 62; TEMP 36.6; O2SAT 99; BMI 22.1
--- NOTE | 2023-07-16 12:34 | AM.OFFWIN_ITS ---
Intake Vital Signs 07/16/23 12:34 Height 5 ft 6 in Weight 137 lb BMI 22.1 BP 120/68 Blood Pressure Location Lt brachial Position Sitting Pulse 62 Pulse Source Pulse Oximeter Temp 97.9 F Temp Source Temporal Artery Scan Pulse Oximetry (%) 99 Oxygen Delivery Method Room Air Intake Visit Reasons: EP UTI Intake Note: pt is here for c/o possible uti Patient Tobacco Use Status: Never used Tobacco Allergies No Known Allergies Allergy (Verified 07/16/23 12:58) Medication List - Last Reconciled 07/16/23 by Ovidio Atkinson MD amlodipine (Norvasc) 5 mg PO DAILY 90 days aspirin (Adult Aspirin Regimen) 81 mg PO DAILY metoprolol succinate ER 25 mg PO DAILY Do you need a note to return to daycare/school/sports/work: Yes HPI EP UTI HPI Details Patient presents for a sick visit. Reports symptoms of increased frequency of urination, burning on urination and discomfort in the suprapubic area. Symptoms started in the past few days. No fevers or chills. No nausea or vomiting. 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 ) Current occupation: [employer] Current occupational exposures/hazards: No Cognitive needs: No Hearing needs: No Vision needs: No Physical Exam Vital Signs: Last Vital Signs Temp 97.9 F 07/16/23 12:34 Pulse 62 07/16/23 12:34 BP 120/68 07/16/23 12:34 Pulse Ox 99 07/16/23 12:34 Oxygen Delivery Method Room Air 07/16/23 12:34 BMI result Body Mass Index 22.1 General: Yes bladder normal to inspection and Yes no CVA tenderness Back/Spine/Pelvis Back: no CVA tenderness Assessment & Plan Assessment & Plan (1) UTI (urinary tract infection): Code(s): N39.0 - Urinary tract infection, site not specified Plan: Take antibiotics and Pyridium as directed. Increase fluid intake. If symptoms of burning persist, new onset of fever or lower back pain, to follow-up at the clinic. Coding Level of Care Code Est Pt Level 3 (50868) Diagnoses UTI (urinary tract infection) N39.0
== END 2023-07-16 13:03 | disposition home or self-care (01) ==
PROVIDERS: PCP Nurse Practitioner Family; Visit Provider Internal Medicine
DX: N39.0 Urinary tract infection, site not specified (principal)
CPT/HCPCS: 99213

== ENCOUNTER 2023-07-20 10:34 | Emergency (ER) | payer MEDICARE, SELFPAY ==
[2023-07-20 10:40] VITALS: BP 164/93; PULSE 85; RESP 18; TEMP 36.4; O2SAT 97; BMI 22.2
[2023-07-20 11:04] LABS: Appearance Urine Clear; Color Urine Yellow; Glucose Urine UA Negative (Negative); Leukocyte Esterase Urine Negative (Negative); Nitrite Urine Negative (Negative); PH 6.5 (5.0-9.0); Specific Gravity - Urine <= 1.005 (1.005-1.025); Urine Blood Negative (Negative); Urine Ketones Negative (Negative); Urine Protein Negative (Neg-Trace)
--- NOTE | 2023-07-20 11:10 | ED_ITS ---
HPI - General Adult General Chief complaint: General Medical Stated complaint: kidney infection ? Time Seen by Provider: 07/20/23 11:10 Source: patient Mode of arrival: ambulatory Limitations: no limitations History of Present Illness HPI narrative: Patient is a 77 year old assigned female at with a history of HTN presenting to the emergency department today with increased urinary urgency and low back pain. Patient states that she was seen and treated for a UTI recently, currently still taking Bactrim for it, however, she is still having low back pain and increased urinary urgency. Patient denies any dizziness, lightheadedness, abdominal pain, nausea, vomiting, fever, chills, blurry vision, double vision, loss of vision, chest pain, difficulty breathing, shortness of breath, night sweats, pain with urination, blood in her urine or stool, syncope or a near syncopal episode, recent trauma or falls, bowel incontinence, bladder incontinence, bowel retention, bladder retention, or any other complaints at this time. Onset (ago): week(s) Location: back Severity: mild Relieving factors: none Exacerbating factors: none Associated symptoms: denies other symptoms Treatments prior to arrival: other (Bactrim) Related Data Previous Rx's Medication Instructions Recorded metoprolol succinate 25 mg 25 mg PO DAILY #90 tabs 10/18/22 tablet,extended release 24 hr amlodipine 5 mg tablet (Norvasc) 5 mg PO DAILY 90 days #90 tabs 05/31/23 aspirin 81 mg tablet,delayed 81 mg PO DAILY #1 tab 07/02/23 release (Adult Aspirin Regimen) sulfamethoxazole 800 1 tab PO BID 5 days #10 tabs 07/16/23 mg-trimethoprim 160 mg tablet (Bactrim DS) Allergies Allergy/AdvReac Type Severity Reaction Status Date / Time No Known Allergies Allergy Verified 07/20/23 10:40 Review of Systems 2 Constitutional: Constitutional: Reports no additional constitutional complaints, Denies chills, Denies fever(s) and Denies night sweats Eyes: Eyes: Reports no additional eye complaints, Denies blurry vision, Denies change in vision, Denies diplopia, Denies eye discharge, Denies loss of vision and Denies eye pain ENT: Denies dizziness Cardiovascular: Cardiovascular: Reports no additional cardiovascular complaints, Denies chest pain, Denies lightheadedness, Denies Loss of Consciousness and Denies dyspnea Respiratory: Respiratory: Reports no additional respiratory complaints and Denies dyspnea Gastrointestinal: Gastrointestinal: Reports no additional gastrointestinal complaints, Denies abdominal pain, Denies melena, Denies hematochezia, Denies change in bowel habits and Denies change in stool character Genitourinary: Genitourinary: Denies hematuria, Denies urinary frequency, Denies dysuria, Denies urinary incontinence, Denies urinary hesitancy and Reports urinary urgency Musculoskeletal: Musculoskeletal: Reports no additional musculoskeletal complaints, Reports back pain, Denies numbness and Denies tingling Neurologic: Denies dizziness, Denies loss of vision, Denies numbness and Denies tingling Psychiatric: Psychiatric: Reports no additional psychiatric complaints Endocrine: Endocrine: Reports no additional endocrine complaints Hematologic/Lymphatic: Hematologic/Lymphatic: Reports no additional hematologic/lymphatic complaints Allergic/Immunologic: Allergic/Immunologic: Reports no additional allergic/immunologic complaints [facility] Past Medical History Attestation statement: The following information was validated with the patient. Source: old records reviewed and nursing notes reviewed Medical History Wheezing UTI (urinary tract infection) Neck swelling Tick bite Leukopenia Right ankle swelling Screening for breast cancer Palpitations Chest pain Dysuria Surgical History No pertinent past surgical history Family History Family History Mother HTN (hypertension) Gastric lymphoma Father Lung cancer Sister CAD (coronary artery disease) Brother Prostate cancer genetic susceptibility HTN (hypertension) Social History Social History Housing: House Alcohol intake: never Patient Tobacco Use Status: Never used Tobacco e-Cigarette/Vaping Use: Never Used Second Hand Smoke Exposure: No Advance Directives: No Advance Directives Information Provided: Yes service: No 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 occupation: [employer] Current occupational exposures/hazards: No Cognitive needs: No Hearing needs: No Vision needs: No Physical Exam ED Vital Signs: Vital Signs - 24 hr 07/20/23 10:40 Temperature 97.6 F Pulse Rate 85 Respiratory Rate 18 Blood Pressure 164/93 H Pulse Oximetry 97 Oxygen Delivery Method Room Air BMI result Body Mass Index 22.2 Const General: cooperative, no acute distress, alert and awake Nutritional Appearance: well nourished Orientation/consciousness: patient oriented x3 Limitations: no limitations HENMT Head: Yes normal to inspection and Yes atraumatic Ears: hearing grossly normal bilaterally and external ears normal General nose exam: Normal external nose present, no nasal discharge noted and no epistaxis Face and sinus: Yes normal facial exam, No abrasion and No laceration Mouth: Normal oral and palatal mucosa present, no drooling and no muffled voice Eyes General: appearance normal, both eyes and all related structures Periorbital: periorbital findings normal Eyelids: Yes eyelids normal Conjunctivae: conjunctivae normal Pupils: Equal, round and reactive pupils present EOM: EOMs intact bilaterally Neck Neck: Yes normal visual inspection, Yes full ROM and Yes no lymphadenopathy Chest Chest palpation & inspection: normal inspection of the chest Resp Effort & Inspection: normal respiratory effort and able to speak in complete sentences GI Inspection: Yes normal to inspection Palpation (GI): Soft to palpation, not firm, nontender and no guarding General: Yes no CVA tenderness Back/Spine/Pelvis Back: no CVA tenderness Cervical Spine: normal cervical lordosis and cervical ROM normal Thoracic/Lumbar Spine: thoracic and lumbar spine normal to inspection and thoraco-lumbar ROM normal Neuro General: patient oriented x3 and moves all extremities Cranial nerves: Yes Equal, round and reactive pupils present Cognition (Neuro): normal cognition Motor exam (neuro): 5/5 motor strength present throughout Sensory Exam: Normal double simultaneous stimulation for sensation Coordination: [id number] test normal Extrem General: Yes normal to inspection, Yes full ROM and Yes capillary refill normal Psych Appearance: grossly normal Mental Status: mental status grossly normal Affect: normal affect Attitude: cooperative Thought process: Normal thought process present Thought content: Normal thought content present Insight: Good insight present (Psych) Medical Decision Making Medical Decision Making MDM Narrative: Patient is a 77 year old assigned female at with a history of HTN presenting to the emergency department today with low back pain and increased urinary urgency. Patient's physical exam was unremarkable. Patient's blood work was unremarkable. Patient's urine showed no acute process. Patient's EKG was unremarkable. I explained my physical exam findings as well as all test results to the patient. I answered all questions asked by the patient. I stressed the importance of the patient taking her medication as prescribed. I stressed the importance of the patient following up with her primary care provider and a urologist. I stressed the importance of the patient returning to the emergency department immediately if her symptoms were to worsen or if she were to develop any dizziness, shortness of breath, difficulty breathing, chest pain, blurry vision, loss of vision, nausea, vomiting, abdominal pain, fever, chills, back pain, or any other complaints. Patient verbalized agreement and understanding with this treatment plan and discharge. Differential Diagnosis Differential Diagnoses: The differential diagnosis associated with the presentation includes UTI Pyelonephritis Increased urinary urgency Low back pain Admission/Observation Consideration of admission/observation: Escalation of care including admission/observation considered Patient would have been admitted to the hospital had her work up had any findings where hospital admission was appropriate and her clinical presentation warranted hospital admission. Lab Data MDM Lab Attestation statement: I reviewed the patient's lab results. My interpretation of these studies and their corresponding values is that they are grossly normal. 07/20/23 11:50 07/20/23 11:50 Labs: Lab Results 07/20/23 07/20/23 Range/Units 10:57 11:50 WBC 5.3 (4.8-10.8) X10*3/uL RBC 4.83 (4.20-5.50) X10*6/uL Hgb 14.4 (12.0-16.0) g/dl Hct 43.1 (37.0-47.0) % MCV 89.2 (80.0-98.0) fL MCH 29.8 (27.0-33.0) pg MCHC 33.4 (31.0-35.0) g/dl RDW 13.1 (11.0-16.0) % Plt Count 266 (160-400) X10*3/uL MPV 9.1 L (9.4-12.3) fL Immature Gran % (Auto) 0.2 (0.0-0.4) % Neut % (Auto) 67.2 (45-73) % Lymph % (Auto) 21.0 (20-40) % [place] % (Auto) 9.5 (2-11) % Eos % (Auto) 1.5 (0-4) % Baso % (Auto) 0.6 (0-2) % Lymph # (Auto) 1.1 L (1.2-4.9) X10*3/uL [place] # (Auto) 0.5 (0.1-1.2) X10*3/uL Eos # (Auto) 0.1 (0.0-0.4) X10*3/uL Baso # (Auto) 0.0 (0.0-0.2) X10*3/uL Abs Immat Gran (auto) 0.01 (0.00-0.03) X10*3/uL Absolute Neuts (auto) 3.5 (2.0-8.3) x10*3/uL Absolute Nucleated RBC 0.000 (0.0-0.012) X10*3/uL Nucleated RBC % (auto) 0.0 (0.0-0.2) /100WBC Sodium 137 (135-145) mmol/L Potassium 4.3 (3.3-5.1) mmol/L Chloride 105 (96-108) mmol/L Carbon Dioxide 25 (22-29) mmol/L Anion Gap 11 L (12-20) BUN 7 L (9-16) mg/dL Creatinine 0.86 (0.5-1.4) mg/dL Estim Creat Clear Calc 52.0 Estimated GFR > 60 Random Glucose 115 (60-115) mg/dL Calcium 9.6 (8.4-10.2) mg/dL Magnesium 2.3 (1.6-2.6) mg/dL Total Bilirubin 0.6 (0.0-1.0) mg/dL AST 33 H (5-31) U/L ALT 20 (0-31) U/L Alkaline Phosphatase 66 (39-117) U/L Troponin I High Sens < 2.7 (<3.5-17.0) ng/L Total Protein 7.4 (6.5-8.0) g/dL Albumin 4.6 (3.5-5.0) g/dL Urine Color Yellow Urine Appearance Clear Urine pH 6.5 (5.0-9.0) Ur Specific [place] <= 1.005 (1.005-1.025) Urine Protein Negative (Neg-Trace) mg/dL Urine Glucose (UA) Negative (Negative) mg/dL Urine Ketones Negative (Negative) mg/dL Urine Blood Negative (Negative) Urine Nitrite Negative (Negative) Ur Leukocyte Esterase Negative (Negative) Independent Interpretation I performed an independent interpretation of an: EKG Interpretation: Vent. Rate: 070 BPM Atrial Rate: 070 BPM P-R Int: 146 ms QRS Dur: 070 ms QT Int: 382 ms P-R-T Axes: 041 048 060 degrees QTc Int: 412 ms Normal sinus rhythm RSR' or QR pattern in V1 suggests right ventricular conduction delay Otherwise normal ECG When compared with ECG of 09-MAR-2023 05:41, No significant change was found Electronically Signed By:DELFINA LINDSEY MD Dictated By: Cong Lindsey MD Signed By: Electronically signed by Cong Lindsey MD 07/20/23 [id number] Radiology Impression Discussion of test interpretation with radiology: I have reviewed the radiologist's reading. Chronic Conditions Patient?s care impacted by: Hypertension Discharge Plan Discharge Clinical Impression: Urinary urgency Patient Disposition: Home, Self-Care Instructions: Urinary Urgency and Frequency (DC) Additional Instructions: Follow up with your primary care provider and a urologist. Return to the emergency department immediately if your symptoms worsen or if you develop any dizziness, shortness of breath, difficulty breathing, chest pain, blurry vision, loss of vision, nausea, vomiting, abdominal pain, fever, chills, back pain, or any other complaints. Prescriptions: No Action metoprolol succinate 25 mg tablet extended release 24 hr 25 mg PO DAILY Qty: 90 3RF amlodipine [Norvasc] 5 mg tablet 5 mg PO DAILY 90 Days Qty: 90 1RF sulfamethoxazole-trimethoprim [Bactrim DS] 800-160 mg tablet 1 tab PO BID 5 Days Qty: 10 0RF aspirin [Adult Aspirin Regimen] 81 mg tablet,delayed release (DR/EC) 81 mg PO DAILY Qty: 1 0RF [place] [facility] [place] (Call to establish and follow up with a primary care provider. If you already have a primary care provider, please follow up with them.) [facility] [place] [facility] [place] (Call to establish and follow up with a primary care provider. If you already have a primary care provider, please follow up with them.) [facility] [place] [facility] [place]] (Call to establish and follow up with a primary care provider. If you already have a primary care provider, please follow up with them.) [facility] [place] [facility] [place]] (Call to establish and follow up with a urologist.) Interventions: ED Discharge Assessment Last Done: 07/20/23 13:13 Discharge Date/Time: 07/20/23 13:13 Print Language: Khmer
--- NOTE | 2023-07-20 11:37 | ECG_ITS ---
Test Reason : BACK PAIN Blood Pressure : / mmHG Vent. Rate : 070 BPM Atrial Rate : 070 BPM P-R Int : 146 ms QRS Dur : 070 ms QT Int : 382 ms P-R-T Axes : 041 048 060 degrees QTc Int : 412 ms Normal sinus rhythm RSR' or QR pattern in V1 suggests right ventricular conduction delay Otherwise normal ECG When compared with ECG of 09-MAR-2023 05:41, No significant change was found Referred By: Allegra Bradley Electronically Signed By:DELFINA LINDSEY MD
[2023-07-20 11:55] LABS: MANUAL DIFF FLAG NO
[2023-07-20 11:58] LABS: Basophils Percent Auto 0.6 % (0-2); Eosinophils Absolute Auto 0.1 X10*3/uL (0.0-0.4); Eosinophils Percent Auto 1.5 % (0-4); Hematocrit 43.1 % (37.0-47.0); Hemoglobin 14.4 g/dl (12.0-16.0); Imm Gran Abs Auto 0.01 X10*3/uL (0.00-0.03); Imm Gran Pct Auto 0.2 % (0.0-0.4); Lymphocytes Absolute Auto 1.1 X10*3/uL (1.2-4.9); Mean Corpuscular HGB Conc 33.4 g/dl (31.0-35.0); Mean Corpuscular Hemoglobin 29.8 pg (27.0-33.0); Mean Corpuscular Volume 89.2 fL (80.0-98.0); Mean Platelet Volume 9.1 fL (9.4-12.3); Monocytes Absolute Auto 0.5 X10*3/uL (0.1-1.2); Monocytes Percent Auto 9.5 % (2-11); Neutrophils Absolute Auto 3.5 x10*3/uL (2.0-8.3); Neutrophils Percent Auto 67.2 % (45-73); Platelet Count 266 X10*3/uL (160-400); Red Blood Count 4.83 X10*6/uL (4.20-5.50); Red Cell Distribution Width 13.1 % (11.0-16.0); White Blood Count 5.3 X10*3/uL (4.8-10.8)
[2023-07-20 12:17] LABS: Alanine Aminotransferase 20 U/L (0-31); Albumin Level 4.6 g/dL (3.5-5.0); Alkaline Phosphatase 66 U/L (39-117); Anion Gap 11 (12-20); Aspartate Amino Transferase 33 U/L (5-31); Bilirubin Total 0.6 mg/dL (0.0-1.0); Blood Urea Nitrogen 7 mg/dL (9-16); Calcium 9.6 mg/dL (8.4-10.2); Carbon Dioxide 25 mmol/L (22-29); Chloride 105 mmol/L (96-108); Estimated Glomerular Filt Rate > 60; Glucose Random 115 mg/dL (60-115); Magnesium 2.3 mg/dL (1.6-2.6); Potassium 4.3 mmol/L (3.3-5.1); Sodium 137 mmol/L (135-145); Total Protein 7.4 g/dL (6.5-8.0)
[2023-07-20 12:34] LABS: Troponin-I High Sensitivity < 2.7 ng/L (<3.5-17.0)
== END 2023-07-20 13:13 | disposition home or self-care (01) ==
PROVIDERS: Physician Assistant Medical; Emergency Provider Emergency Medicine
DX: R39.15 Urgency of urination (principal); M54.50 Low back pain, unspecified; R94.31 Abnormal electrocardiogram [ECG] [EKG]; Z79.899 Other long term (current) drug therapy
CPT/HCPCS: 36415; 80053; 81003; 83735; 84484; 85025; 93005; 99283

== ENCOUNTER 2023-09-24 13:15 | Outpatient (AMB) | payer MEDICARE, SELFPAY ==
--- NOTE | 2023-09-24 13:17 | MHC.PC.OV ---
Vital Signs 09/24/23 13:20 Weight 141 lb BP 118/76 Blood Pressure Location Lt brachial Position Sitting Pulse 68 Pulse Source Pulse Oximeter Pulse Oximetry (%) 98 Oxygen Delivery Method Room Air Intake Visit Reasons: SWV [id number] Intake Note: Patient here for SWV. Allergies No Known Allergies Allergy (Verified 09/24/23 13:20) Tobacco use date assessed: 09/24/23 Fall risk assessment: No Falls in past year Last assessed Fall Risk: 09/24/23 Dental Screening Dental Screen Date: 09/24/23 Did you have a dental visit in the last 12 months?: Yes Did you have a dental problem in the last 6 months where you did not have access to dental care?: No Was dental information given to patient?: Patient has dentist HPI SWV [id number] HPI Details Pt is here for an SWV. Denies fever, chills, and dizziness. Malcolm of care in scan pile. PPP will be scanned in chart and copy will be given to pt. 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 How often do you have a drink containing alcohol?: Monthly or less 2. How many drinks containing alcohol do you have on a typical day when you are drinking?: 1 or 2 3. How often do you have six or more drinks on one occasion?: Never Total Score: 1 Score Reviewed/Action Taken: No LITA-7 AMB Questionnaire LITA-7 Date LITA - 7 assessed: 03/09/22 Source: Developed by Drs. Nic Luke, Celsa Rogers, Ramiro Rivers and colleagues, with an educational iraida from [employer]. Review of Systems Const Reports as per HPI Physical exam (Primary Care) Vital Signs: Last Vital Signs Pulse 68 09/24/23 13:20 BP 118/76 09/24/23 13:20 Pulse Ox 98 09/24/23 13:20 Oxygen Delivery Method Room Air 09/24/23 13:20 Tobacco/Smoking Status: Tobacco use Status Tobacco use date assessed 09/24/23 09/24/23 13:22 Patient Tobacco Use Status Never used Tobacco 09/24/23 13:19 e-Cigarette/Vaping Use Never Used 09/24/23 13:19 Thrive Assessment: Date of Thrive Assessment Date Thrive assessed 03/09/22 09/24/23 13:19 Const General: cooperative Orientation/consciousness: patient oriented x3 Neuro General: patient oriented x3 Psych Appearance: grossly normal Mental Status: mental status grossly normal Speech and movement: Normal speech and movement present Affect: normal affect Attitude: cooperative Thought process: Normal thought process present Thought content: Normal thought content present Insight: Good insight present (Psych) Judgement: Good judgement present (Psych) Assessment and Plan Assessment & Plan Plan The patient agreed to the use of a medical logistics specialist for this encounter. Scribed for LEATHA Bailon by Kandi Tate medical logistics specialist, on 09/24/2023 at 13:25 EST. Coding
[2023-09-24 13:20] VITALS: BP 118/76; PULSE 68; O2SAT 98
--- NOTE | 2023-09-24 13:26 | AM.OFFVISMDC ---
Intake Vital Signs 09/24/23 13:20 Weight 141 lb BP 118/76 Blood Pressure Location Lt brachial Position Sitting Pulse 68 Pulse Source Pulse Oximeter Pulse Oximetry (%) 98 Oxygen Delivery Method Room Air Intake Visit Reasons: SWV G0439 Allergies No Known Allergies Allergy (Verified 09/24/23 13:20) Medication List - Last Reconciled 09/24/23 by Edward Barajas, FEEDER OPERATOR- amlodipine (Norvasc) 5 mg PO DAILY 90 days aspirin (Adult Aspirin Regimen) 81 mg PO DAILY metoprolol succinate ER 25 mg PO DAILY HPI SWV G0439 HPI Details Pt is here for an SWV. Denies fever, chills, and dizziness. [place] of care in scan pile. PPP will be scanned in chart and copy will be given to pt. Hx of osteoporosis, will order bone density. Pt reports tinnitus in her right ear. Will refer for hearing screen. [facility], LATER [facility] Medical History Wheezing UTI (urinary tract infection) Neck swelling Tick bite Leukopenia Right ankle swelling Screening for breast cancer Palpitations Chest pain Dysuria Surgical History No pertinent past surgical history Family History Mother HTN (hypertension) Gastric lymphoma Father Lung cancer Sister CAD (coronary artery disease) Brother Prostate cancer genetic susceptibility HTN (hypertension) Social History Housing: House Alcohol intake: never Patient Tobacco Use Status: Never used Tobacco e-Cigarette/Vaping Use: Never Used Second Hand Smoke Exposure: No service: No 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 ) Current occupation: [employer] Current occupational exposures/hazards: No Cognitive needs: No Hearing needs: No Vision needs: No Questionnaire Medicare Wellness Checkup [age] What gender do you identify with?: female During the past 4 weeks, how much have you been bothered by emotional problems such as feeling anxious, depressed, irritable, sad or downhearted, and blue?: not at all During the past 4 weeks, has your physical & emotional health limited your social activities with family, friends, neighbors, or groups?: not at all During the past 4 weeks, how much bodily pain have you generally had?: very mild pain During the past 4 weeks, was someone available to help you if you needed & wanted help?: no, not at all During the past 4 weeks, what was the hardest physical activity you could do for at least 2 minutes?: heavy Can you get to places out of walking distance without help? (For eg., can you travel alone on buses, taxis or drive your car?): Yes Can you go shopping for groceries or clothes without someone's help?: Yes Can you prepare your own meals?: Yes Can you do your housework without help?: Yes Because of any health problems, do you need the help of another person with your personal care needs such as eating, bathing, dressing or getting around the house?: No Can you handle your own money without help?: Yes During the past 4 weeks, how would you rate your health in general?: very good During the past 4 weeks how have things been going for you?: very well; could hardly better Are you having difficulties driving your car?: no Do you always fasten your seat belt when you are in a car?: yes, usually During past 4 weeks, have you been bothered by the following: never: Falling or dizzy when standing up, Sexual problems?, Trouble eating well?, Teeth or denture problems?, Problems using the telephone? and Tiredness or fatigue? Have you fallen 2 or more times in the past year?: No Are you afraid of falling?: No Are you a smoker?: no During the past 4 weeks, how many drinks of wine, beer, or other alcoholic beverages did you have?: 2-5 drinks per week Do you exercise for about 20 minutes 3 or more times a week?: yes, most of the time Have you been given information to help with the following?: yes: Hazards in your house that might hurt you? and yes: Keeping track of your medications? How often do you have trouble taking medicines the way you have been told to take them?: I always take medicine as prescribed How confident are you that you can control & manage most of your health problems?: very confident What is your race?: White Mini Mental State Exam (MMSE) Orientation What is the (year) (season) (date) (day) (month)?: year (2023) Where are we (state) (county) (town or city) (hospital) (floor)?: state Registration Name of 3 unrelated objects clearly and slowly, then ask patient to repeat all 3 of them. (1st repeat determines score. Make sure they can repeat all three): object 1, object 2 and object 3 Attention & Calculation (CHOOSE ONE) Spell WORLD backwards (DLROW): 5 letters Recall Ask patient to repeat the 3 items from question #3.: object 1, object 2 and object 3 Language Show patient a wristwatch & ask what it is. Repeat for pencil.: watch and pencil Ask the patient to repeat the phrase 'No ifs, ands, or buts' after you.: correct Ask the patient to 'take a piece of paper with their right hand' 'fold paper in half' 'place paper on floor': take paper in right hand, fold paper in half and place paper on floor Print the sentence 'CLOSE YOUR EYES' on a piece. If patient actually closes eyes then score.: followed written direction Give patient a blank piece of paper & ask to write a sentence. Score if it contains a noun & verb.: sentence contains subject and verb Ask patient to copy figure of intersecting pentagons exactly. Score if all 10 angles & 2 intersects are included.: all 10 angles present & 2 are intersected Score Score: 22 Activity of Daily Living Bathing - sponge bath, tub bath or shower: receives no assistance (gets in/out by self, if usual bathing means Dressing - getting clothes from closets & drawers, including inner/outer garments & fasteners.: gets clothes & gets completely dressed without help Toileting - going to the 'toilet room' for urine/bowel elimination & cleaning self/arranging clothes: goes to toilet room, cleans self, arranges clothes without help Transfer: moves in & out of bed and chair without help (may use support object) Continence: controls urination/bowel movements completely by self Feeding: feeds self without help Total Score: 0 Information obtained from: patient Using telephone: independent Traveling: independent Shopping: independent Preparing meals: independent Housework: independent Taking medicine: independent Managing money: independent PHQ-9 Over the last 2 weeks, how often have you been bothered by any of the following problems? 1. Little interest or pleasure in doing things: not at all 2. Feeling down, depressed, or hopeless: not at all 3. Trouble falling or staying asleep, or sleeping too much: several days 4. Feeling tired or having little energy: not at all 5. Poor appetite or overeating: not at all 6. Feeling bad about yourself - or that you are a failure or have let yourself or your family down: not at all 7. Trouble concentrating on things, such as reading the newspaper or watching television: not at all 8. Moving or speaking so slowly that other people could have noticed. Or the opposite - being so fidgety or restless that you have been moving around a lot more than usual: not at all 9. Thoughts that you would be better off or of hurting yourself in some way: not at all Total score: 1 Depression Screening Interpretation: Negative Depression Screening Done: Yes 96342 - PHQ-9 Billing: Yes Source: Developed by Drs. Nic Luke, Celsa Rogers, Ramiro Rivers and colleagues, with an educational iraida from [employer]. Review of Systems Const Reports as per HPI Physical Exam Vital Signs: Last Vital Signs Pulse 68 09/24/23 13:20 BP 118/76 09/24/23 13:20 Pulse Ox 98 09/24/23 13:20 Oxygen Delivery Method Room Air 09/24/23 13:20 Const General: cooperative Orientation/consciousness: patient oriented x3 Neuro Other: - romberg, can tandem walk, can walk and turn, can rise from sitting to standing, passed whisper test General: patient oriented x3 Psych Appearance: grossly normal Mental Status: mental status grossly normal Speech and movement: Normal speech and movement present Affect: normal affect Attitude: cooperative Thought process: Normal thought process present Thought content: Normal thought content present Insight: Good insight present (Psych) Judgement: Good judgement present (Psych) Assessment & Plan Assessment & Plan (1) Osteoporosis: Code(s): M81.0 - Age-related osteoporosis without current pathological fracture Plan: Bone density ordered (2) Hard of hearing: Code(s): H91.90 - Unspecified hearing loss, unspecified ear Plan: Referred for hearing screen Plan The patient agreed to the use of a medical assistant per diem for this encounter. Scribed for Edward Barajas, FEEDER OPERATOR-BC by Kandi Tate medical assistant per diem, on 09/24/2023 at 13:25 EST. Orders: Orders XR DEXA axial skeleton 9 Months M81.0 - Age-related osteoporosis without current pathological fracture Referrals Speech and Hearing Referral H91.90 - Unspecified hearing loss, unspecified ear Quality Reporting (2019) Depression/Bipolar (159/160/161/177) PHQ-9: Total score: 1 Coding Level of Care Code Medicare Subsequent (G0439) Diagnoses Osteoporosis M81.0 Hard of hearing H91.90 CPT Codes Advance Care Planning - Time spent: 1-15 minutes, on File ([id number]) Advance Care Planning Forms completed: Health Care Proxy (form given to pt to fill out), MOLST (form explained and given to pt to take home) and Living will (pt reports this has already been done) Time spent: 1-15 minutes, on File Actual minutes spent: 15
== END 2023-09-24 15:06 | disposition home or self-care (01) ==
PROVIDERS: PCP Nurse Practitioner Family; Visit Provider Nurse Practitioner Family
DX: M81.0 Age-related osteoporosis without current pathological fracture (principal); H91.90 Unspecified hearing loss, unspecified ear; Z00.00 Encounter for general adult medical examination without abnormal findings
CPT/HCPCS: 1123F; G0439

== ENCOUNTER 2023-11-04 19:20 | Observation (INO) | payer MEDICARE, SELFPAY ==
[2023-11-04] VITALS (7 sets, daily range): BP systolic 119–186; BP diastolic 73–84; PULSE 66–145; RESP 14–21; TEMP 36.5–36.8; O2SAT 97–99; BMI 22.8
[2023-11-04] MEDS: EPINEPHrine 1 MG/ML VIAL 0.3 MG IM (19:39)
[2023-11-04] MEDS: diphenhydrAMINE HCL 50 MG/ML VIAL 25 MG IVPUSH (19:43)
[2023-11-04] MEDS: Famotidine/PF 20 MG/2 ML VIAL IVPUSH (19:44)
[2023-11-04] MEDS: Loratadine 10 MG TABLET PO (19:46)
[2023-11-04] MEDS: methylPREDNISolone Sod Succ 125 MG/2 ML VIAL IVPUSH (19:46)
--- NOTE | 2023-11-04 19:50 | PC.NURSE ---
md howell notified hr 140s, no cp/dizziness. breathing well. able to tolerate claritin by mouth as per order well.
--- NOTE | 2023-11-04 20:04 | ED.ALLEREA ---
HPI - Allergic Reaction General Chief complaint: General Medical Stated complaint: headache, pain/swelling in face, jd aguirre Time Seen by Provider: 11/04/23 19:27 Source: patient and old records reviewed Mode of arrival: ambulatory Limitations: no limitations History of Present Illness HPI narrative: 78 yo female with PMH of HTN, atrial tachycardia but no hx of CAD, hearing loss, arthritis, not on PHOEBE-I, she is s/p 2nd surgery (has had one prior mandibular torus removal on R side) and on Sunday had removal on L side with oral surgeon [place]. They put her on a prednisone taper and amoxicillin. Tonight while watching TV - no new changes to meds or diet she developed hot flush face, abrupt onset swelling under left tongue and feeling a hoarse voice and her throat feeling like it will close. MD complaint: allergic reaction and facial swelling Onset (ago): minute(s) (30) Exposure: unknown Symptoms: facial swelling, difficulty swallowing and hoarseness Severity: severe Treatment prior to arrival: none Previous Allergic Reaction History: none Related Data Previous Rx's Medication Instructions Recorded amlodipine 5 mg tablet (Norvasc) 5 mg PO DAILY 90 days #90 tabs 05/31/23 aspirin 81 mg tablet,delayed 81 mg PO DAILY #1 tab 07/02/23 release (Adult Aspirin Regimen) metoprolol succinate 25 mg 25 mg PO DAILY #90 tabs 10/12/23 tablet,extended release 24 hr Allergies Allergy/AdvReac Type Severity Reaction Status Date / Time No Known Allergies Allergy Verified 11/04/23 19:58 Review of Systems Review of Systems: Constitutional : No Fever, No Chills ENT/Mouth : positive oral swelling, pos Hoarseness, pos Swallowing Difficulty Eyes: No Eye Pain, No Swelling, No Redness Cardiovascular : No Chest Pain, No SOB Respiratory : No Cough, No Sputum, No Wheezing, No Dyspnea Gastrointestinal : No Nausea, No Vomiting, No Diarrhea, No abdominal Pain Genitourinary : No Dysuria, No Urinary Frequency, No Hematuria Musculoskeletal : No joint pain, No Myalgias, No Joint Swelling Skin : No Skin Lesions, positive rash Neuro : No Weakness, No Numbness, No Headache Psych : No Anxiety/Panic, No Depression Heme/Lymph: No Bruising, No Lymphadenopathy Endocrine : No Polyuria, No Polydipsia All other systems reviewed and are negative [facility] Past Medical History Medical History Wheezing UTI (urinary tract infection) Neck swelling Tick bite Leukopenia Right ankle swelling Screening for breast cancer Palpitations Chest pain Dysuria Surgical History No pertinent past surgical history Family History Family History Mother HTN (hypertension) Gastric lymphoma Father Lung cancer Sister CAD (coronary artery disease) Brother Prostate cancer genetic susceptibility HTN (hypertension) Social History Social History Housing: House Alcohol intake: never Patient Tobacco Use Status: Never used Tobacco Smoked in Last 30 Days: No e-Cigarette/Vaping Use: Never Used Second Hand Smoke Exposure: No Use of substances other than those prescribed or required for medical reasons: No Advance Directives: No Advance Directives Information Provided: No service: No 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 ) Current occupation: [employer] Current occupational exposures/hazards: No Cognitive needs: No Hearing needs: No Vision needs: No Physical Exam ED Vital Signs: Vital Signs - 24 hr 11/04/23 19:30 11/04/23 19:35 11/04/23 19:39 Temperature 97.7 F Pulse Rate 105 H 105 H 93 Respiratory Rate 18 21 H Blood Pressure 186/78 H 186/78 H 186/78 H Pulse Oximetry 98 97 Oxygen Delivery Method Room Air Room Air 11/04/23 19:50 11/04/23 20:10 11/04/23 22:00 Temperature 98.2 F Pulse Rate 145 H 109 H 66 Respiratory Rate 14 16 Blood Pressure 146/84 H 119/73 Pulse Oximetry 98 99 Oxygen Delivery Method Room Air Room Air 11/05/23 00:30 Temperature 97.7 F Pulse Rate 66 Respiratory Rate 17 Blood Pressure 129/84 Pulse Oximetry 96 Oxygen Delivery Method Room Air BMI result Body Mass Index 22.8 Appearance: Alert. Oriented X3. No acute distress. Eyes: Pupils equal, round and reactive to light. ENT: L sublingual aspect of tongue is moderate swelling but no swelling on posterior pharynx or uvula no tongue swelling, no submandibular swelling, no drooling. Her voice is muffled Neck: Normal inspection. Neck supple. CVS: Normal heart rate and rhythm. Pulses normal. Respiratory: No respiratory distress. Breath sounds normal. Abdomen: Soft and nontender. Skin: Skin warm and dry. Normal skin color. Normal skin turgor. Extremities: No lower extremity edema. No calf ttp Neuro: Oriented X 3. No motor deficit. No sensory deficit. Course Course Course Narrative: 830 pm symptoms improving Reevaluation(s) Reevaluation #1: 1126pm symptoms still improved airway resolved but sublingual swelling still present though not as severe will discuss with hospitalist about possible admission. VS stable. Medications Administered Discontinued Medications Generic Name Dose Route Start Last Admin Trade Name Freq PRN Reason Stop Dose Admin Diphenhydramine HCl 25 mg 11/04/23 19:33 11/04/23 19:43 Diphenhydramine Hcl 50 Mg/Ml Vial IVPUSH 11/04/23 19:34 25 mg ONCE ONE Administration Epinephrine 0.3 mg 11/04/23 19:33 11/04/23 19:39 Epinephrine 1 Mg/Ml Vial IM 11/04/23 19:34 0.3 mg STAT STA Administration Famotidine 20 mg 11/04/23 19:33 11/04/23 19:44 Famotidine/Pf 20 Mg/2 Ml Vial IVPUSH 11/04/23 19:34 20 mg ONCE ONE Administration Loratadine 10 mg 11/04/23 19:33 11/04/23 19:46 Loratadine 10 Mg Tablet PO 11/04/23 19:34 10 mg ONCE ONE Administration Methylprednisolone Sodium Succinate 125 mg 11/04/23 19:33 11/04/23 19:46 Methylprednisolone Sod Succ 125 Mg/2 Ml Vial IVPUSH 11/04/23 19:34 125 mg ONCE ONE Administration Medical Decision Making Medical Decision Making [facility] Narrative: 78 yo female with PMH of HTN, atrial tachycardia but no hx of CAD, hearing loss, arthritis, not on PHOEBE-I, she is s/p 2nd surgery (has had one prior mandibular torus removal on R side) and on Sunday had removal on L side with oral surgeon [place] here with angioedema under tongue it appears boggy and swollen not infectious not red not hot - she has hoarse muffled voice it was abrupt in onset at this time concern for angioedema given her diff swallowing there is concern for respiratory compromise there is no submandibular swelling to suggest ludwigs. Given airway concern will give IV steroids, IV pepcid, IV benadryl and claritin. She has no CAD but does have atrial tachycardia benefits outweigh risks IM epi ordered. Differential Diagnosis Differential Diagnoses: The differential diagnosis associated with the presentation includes allergic reaction, angioedema Admission/Observation Consideration of admission/observation: Escalation of care including admission/observation considered given she still has residual swelling sublingually though there is no further airway symptoms will admit for observation Consult Healthcare Provider Management of the patient was discussed with: Hospitalist (Dr. Vazquez will admit) External Record Review External record reviewed: Inpatient record and Outpatient record Critical Care Time Critical Care Time Critical Care Time: Yes Total Critical Care Time: 45 Attestation: repeat assessments, intervention for angioedema I attest to this time spent taking care of the patient Discharge Plan Discharge Clinical Impression: Angioedema Qualifiers: Encounter type: initial encounter Qualified Code(s): T78.3XXA - Angioneurotic edema, initial encounter Patient Disposition: Admitted As Inpatient
--- NOTE | 2023-11-04 21:13 | PC.NURSE ---
Assumed care of pt. Pt lying on stretcher, no acute distress at this time. Pt breathing clear, LSCTA, speech clear, noted swelling under tongue with no obstruction, pt able to swallow secretions, indicates no pain. Warm blanket provided. Continuing plan of care.
--- NOTE | 2023-11-04 22:55 | MHC.EDTECH ---
This PCT Assumed care of pt at 2300
[2023-11-05 00:30] VITALS: BP 129/84; PULSE 66; RESP 17; TEMP 36.5; O2SAT 96
--- NOTE | 2023-11-05 00:50 | MHC.EDTECH ---
PT HAD A POCKET KNIFE. THE KNIFE IS WITH ED SECURITY
--- NOTE | 2023-11-05 01:16 | PM.IMHP ---
History of Present Illness Date of Service: 11/05/23 Attending physician on admission: Jaime Saini Chief Complaint: throat swelling Sarai Babin is a very pleasant 78 years old woman with past medical history significant for hypertension on amlodipine and metoprolol was brought to the emergency department after she was started to experience tonight while watching TV sudden onset of facial flush, severe headache, wheezing, tongue swelling, difficulty swallowing, hoarseness and swelling of the throat. Last Sunday, she underwent a mandibular surgery (left) and was prescribed with a course of amoxicillin (she still has 5 pills left), prednisone (completed) and ibuprofen. She does not take PHOEBE inhibitors and denied history of angioedema or allergic reactions to penicillin or NSAIDs. She denied rash. She did not report any abdominal or genitourinary symptoms. In the ED, she was initially found to have tachycardia and tachypnea. Also her blood pressure was elevated 186/78. Blood workup including CBC + diff is unremarkable. ED Tx: Epinephrine 0.3 mg IM, loratadine 10 mg p.o., Benadryl 25 mg IV, famotidine 20 mg IV and Solu-Medrol 125 mg IV. Review of Systems Review of Systems: All 12 systems were reviewed and normal except as noted in HPI. PMFSH Medical History Wheezing UTI (urinary tract infection) Neck swelling Tick bite Leukopenia Right ankle swelling Screening for breast cancer Palpitations Chest pain Dysuria Family History Mother HTN (hypertension) Gastric lymphoma Father Lung cancer Sister CAD (coronary artery disease) Brother Prostate cancer genetic susceptibility HTN (hypertension) Surgical History No pertinent past surgical history Social History Housing: House Alcohol intake: never Patient Tobacco Use Status: Never used Tobacco Smoked in Last 30 Days: No e-Cigarette/Vaping Use: Never Used Second Hand Smoke Exposure: No Use of substances other than those prescribed or required for medical reasons: No Advance Directives: No Advance Directives Information Provided: No Nutrition Risks: No Nutritional Risk service: No 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 [employer] Current occupational exposures/hazards: No Cognitive needs: No Hearing needs: No Vision needs: No Meds Allergies Allergy/AdvReac Type Severity Reaction Status Date / Time No Known Allergies Allergy Verified 11/04/23 19:58 Active Medications: Current Medications Acetaminophen (Acetaminophen 325 Mg Tablet) 650 mg PO Q6H PRN PRN Reason: Pain, Mild (Pain Scale 1-3) Amlodipine Besylate (Amlodipine Besylate 5 Mg Tablet) 5 mg PO DAILY ELIAS; Protocol Diphenhydramine HCl (Diphenhydramine Hcl 50 Mg/Ml Vial) 50 mg IVPUSH ONCE PRN PRN Reason: Anaphylaxis Epinephrine (Epinephrine 1 Mg/Ml Vial) 0.3 mg IM STAT PRN PRN Reason: Anaphylaxis Famotidine (Famotidine/Pf 20 Mg/2 Ml Vial) 20 mg IVPUSH DAILY [facility] Loratadine (Loratadine 10 Mg Tablet) 10 mg PO DAILY [facility] Metoprolol Succinate (Metoprolol Succinate Er 25 Mg Tab.Er.24h) 25 mg PO DAILY [facility]; Protocol Sodium Chloride (0.9 % Sodium Chloride Flush 3 Ml Syringe) 3 ml IVFLUSH QSHIFT [facility] Home Medications Medication Instructions Recorded Confirmed Last Taken Type ibuprofen 600 mg tablet 600 mg PO Q4-6H PRN Pain 11/05/23 11/05/23 Unknown History Physical Exam Vital Signs and Narrative: Vital Signs: Last Vital Signs Temp 97.7 F 11/05/23 00:30 Pulse 66 11/05/23 00:30 Resp 17 11/05/23 00:30 BP 129/84 11/05/23 00:30 Pulse Ox 96 11/05/23 00:30 O2 Del Method Room Air 11/05/23 00:30 BMI result Body Mass Index 22.8 Constitutional - Awake and Alert, No apparent distress. Cooperative. Pleasant. Normal voice. HEENT - Normocephalic. Atraumatic. Pupils equally round. Moist oral mucosa. There is some swelling of the floor of the tongue (just the left side). Tongue normal. Oropharynx/uvula looks normal. Mandible is not tender or significantly edematous. Neck: Non tenderness. No edematous.. Heart - regular rhythm. Normal rate. No murmurs. Lungs - Normal lung expansion, Normal respiratory effort, No respiratory distress, CTA bilaterally Abdomen - NT / ND; +BS; No rebound or guarding Extremities - no calf tenderness bilaterally, no swelling Musculoskeletal - Normal inspection, normal ROM Skin - Warm/Dry. No rash. Neurological - Alert & oriented x3, CN II-XII. No focal weakness. Normal speech. Psychological - Appropriate affect Assessment and Plan (1) HTN (hypertension): Qualifiers: Hypertension type: primary hypertension Qualified Code(s): I10 - Essential (primary) hypertension Status: Acute (2) Angioedema: Qualifiers: Encounter type: initial encounter Qualified Code(s): T78.3XXA - Angioneurotic edema, initial encounter Status: Acute Plan Sarai Babin is a 78 years old woman presents with cough Allergic reaction/anaphylaxis, angioedema, symptoms resolved. There is still minimal swelling to the left side of the tongue floor. Likely secondary to amoxicillin and/or ibuprofen. Prednisone less likely. Chad angina signs or symptoms are absent such as drooling, dysphagia, stiff neck, fever, chills, breathing difficulty or inability to speak well. Keeping observation. Discontinue amoxicillin and ibuprofen use. Telemetry. Pulse oximetry. Continue treatment with loratadine and Pepcid. Epinephrine and Benadryl as needed. If patient remains asymptomatic later a.m. we will consider to send her home. She has a follow-up appointment with her oral surgeon tomorrow. Essential hypertension. Continue amlodipine and metoprolol. Quality Stroke Does the patient have a stroke diagnosis?: No VTE Prior VTE?: No VTE Risk Level:: Medical - low VTE Device Contraindication: Treatment Not Indicated VTE Drug Contraindication: Treatment Not Indicated
[2023-11-05 04:50] LABS: MANUAL DIFF FLAG NO
[2023-11-05 04:57] LABS: Basophils Percent Auto 0.2 % (0-2); Hematocrit 44.1 % (37.0-47.0); Hemoglobin 14.5 g/dl (12.0-16.0); Imm Gran Abs Auto 0.03 X10*3/uL (0.00-0.03); Imm Gran Pct Auto 0.5 % (0.0-0.4); Lymphocytes Absolute Auto 0.6 X10*3/uL (1.2-4.9); Lymphocytes Percent Auto 10.5 % (20-40); Mean Corpuscular HGB Conc 32.9 g/dl (31.0-35.0); Mean Corpuscular Hemoglobin 29.9 pg (27.0-33.0); Mean Corpuscular Volume 90.9 fL (80.0-98.0); Mean Platelet Volume 9.2 fL (9.4-12.3); Monocytes Absolute Auto 0.1 X10*3/uL (0.1-1.2); Monocytes Percent Auto 1.3 % (2-11); Neutrophils Absolute Auto 5.4 x10*3/uL (2.0-8.3); Neutrophils Percent Auto 87.5 % (45-73); Platelet Count 310 X10*3/uL (160-400); Red Blood Count 4.85 X10*6/uL (4.20-5.50); Red Cell Distribution Width 12.7 % (11.0-16.0); White Blood Count 6.1 X10*3/uL (4.8-10.8)
[2023-11-05 05:09] LABS: Anion Gap 16 (12-20); Blood Urea Nitrogen 13 mg/dL (9-16); C Reactive Protein < 0.10 mg/dL (< or = 0.50); Calcium 9.8 mg/dL (8.4-10.2); Carbon Dioxide 25 mmol/L (22-29); Chloride 101 mmol/L (96-108); Creatinine Clr Calc Pharmacy 55.1; Estimated Glomerular Filt Rate > 60; Glucose Random 173 mg/dL (60-115); Potassium 4.3 mmol/L (3.3-5.1); Sodium 138 mmol/L (135-145)
[2023-11-05 05:11] VITALS: BP 118/70; PULSE 69; RESP 12; TEMP 36.7; O2SAT 98
[2023-11-05 07:15] VITALS: BP 112/65; PULSE 94; RESP 12; TEMP 36.9; O2SAT 100
--- NOTE | 2023-11-05 08:47 | PHA.MEDREC ---
Pharmacy Consult ? Medication Reconciliation Pharmacy has completed the medication reconciliation.
[2023-11-05] MEDS: Metoprolol Succinate ER 25 MG TAB.ER.24H PO (10:14)
[2023-11-05] MEDS: amLODIPine Besylate 5 MG TABLET PO (10:14)
[2023-11-05] MEDS: Famotidine/PF 20 MG/2 ML VIAL IVPUSH (10:15)
[2023-11-05] MEDS: Loratadine 10 MG TABLET PO (10:15)
[2023-11-05] MEDS: 0.9 % Sodium Chloride Flush 3 ML SYRINGE IVFLUSH (10:19)
--- NOTE | 2023-11-05 10:30 | P.DS_ITS ---
DS: Providers Provider Date of Service: 11/05/23 Date of admission: 11/05/23 00:35 Primary care physician: Unknown Physician DS: Diagnosis Discharge Diagnosis (1) HTN (hypertension): Status: Acute (2) Angioedema: Status: Acute DS: Summary Hospital Course Hospital Course: admission hpi Chief Complaint: throat swelling Sarai Babin is a very pleasant 78 years old woman with past medical history significant for hypertension on amlodipine and metoprolol was brought to the emergency department after she was started to experience tonight while watching TV sudden onset of facial flush, severe headache, wheezing, tongue swelling, difficulty swallowing, hoarseness and swelling of the throat. Last Sunday, she underwent a mandibular surgery (left) and was prescribed with a course of amoxicillin (she still has 5 pills left), prednisone (completed) and ibuprofen. She does not take PHOEBE inhibitors and denied history of angioedema or allergic reactions to penicillin or NSAIDs. She denied rash. She did not report any abdominal or genitourinary symptoms. In the ED, she was initially found to have tachycardia and tachypnea. Also her blood pressure was elevated 186/78. Blood workup including CBC + diff is unremarkable. ED Tx: Epinephrine 0.3 mg IM, loratadine 10 mg p.o., Benadryl 25 mg IV, famotidine 20 mg IV and Solu-Medrol 125 mg IV. Hospital course: The patient presented with what appears to be angioedema, as stated above. She was recently treated with amoxicillin, prednisone, and Motrin following a mandibular Raine surgery about 1 week ago. She was experiencing some sensation of numbness in the neck area throughout the day, which culminated in wheezing, tongue swelling, difficulty swallowing, and hoarseness, prompting her to seek help. In the ED, she was treated with epinephrine, Benadryl, and IV solumedrol, resulting in rapid improvement in her symptoms. Her presentation is consistent with angioedema, with the likely cause being a delayed reaction from amoxicillin or Motrin. She is advised to avoid these agents in the future. She presently doesn't have any swelling and will be discharged with Benadryl. Time Attestation Discharge coordination time: Greater than 30 minutes Quality: Safe Use of Opioids Does Pt have an Active Cancer Diagnosis on the Problem List?: No Quality: Stroke Does the patient have a stroke diagnosis?: No Physical Exam Vital Signs: Vital Signs: Last Vital Signs Temp 98.4 F 11/05/23 07:15 Pulse 94 11/05/23 07:15 Resp 12 11/05/23 07:15 BP 112/65 11/05/23 07:15 Pulse Ox 100 11/05/23 07:15 O2 Del Method Room Air 11/05/23 07:15 BMI result Body Mass Index 22.8 General: AO X 3, no acute distress Oral exam noswelling tongue or mucosa Resp: CTA bilateral CVS: S1,S2,RRR GI: +BS, NT, no distention Skin: No rash Neuro: motor grossly intact Psych: appropriate affect DS: Data Data Completed and Pending Labs on day of discharge: Laboratory Results - last 24 hr 11/05/23 04:45 WBC 6.1 RBC 4.85 Hgb 14.5 Hct 44.1 MCV 90.9 MCH 29.9 MCHC 32.9 RDW 12.7 Plt Count 310 MPV 9.2 L Immature Gran % (Auto) 0.5 H Neut % (Auto) 87.5 H Lymph % (Auto) 10.5 L Hernando % (Auto) 1.3 L Eos % (Auto) 0.0 Baso % (Auto) 0.2 Lymph # (Auto) 0.6 L [place] # (Auto) 0.1 Eos # (Auto) 0.0 Baso # (Auto) 0.0 Abs Immat Gran (auto) 0.03 Absolute Neuts (auto) 5.4 Absolute Nucleated RBC 0.000 Nucleated RBC % (auto) 0.0 Sodium 138 Potassium 4.3 Chloride 101 Carbon Dioxide 25 Anion Gap 16 BUN 13 Creatinine 0.80 Estim Creat Clear Calc 55.1 Estimated GFR > 60 Random Glucose 173 H Calcium 9.8 C-Reactive Protein < 0.10 Discharge Plan Discharge Anticipated Discharge Date/Time: 11/05/23 10:27 Patient Disposition: Home, Self-Care Discharge Diagnosis: Allergic reaction, angioedema Referrals: Physician,Unknown J [Primary Care Provider] - 1 Week Discharge Medications: Continued amlodipine [Norvasc] 5 mg tablet 5 mg PO DAILY 90 Days Qty: 90 1RF metoprolol succinate 25 mg tablet extended release 24 hr 25 mg PO DAILY Qty: 90 3RF ibuprofen 600 mg tablet 600 mg PO Q4-6H PRN (Reason: Pain) Diet: Advance to usual diet Activity on Discharge: As tolerated Stand Alone Forms: Patient Portal Discharge page Care Plan Goals: full recovery from angiodema and allergic reaction Health Concerns: Angioedema Plan of Treatment: Take Benadryl as directed take Prednisone as dircted if you sense any difficulty swallowing, breathing or talking or any noted swelling in your face or mouth, call 911 Assessment: see above
[2023-11-05 10:52] VITALS: BP 117/70; PULSE 64; RESP 12; TEMP 36.9; O2SAT 99
--- NOTE | 2023-11-05 11:16 | MHC.CM.PN ---
Patient d/c'd before being seen by case management.
--- NOTE | 2023-11-05 12:05 | MHC.CM.PN ---
PT DC/ LEFT WITHOUT BEING SEEN BY CM.
== END 2023-11-05 11:05 | disposition home or self-care (01) ==
LOC: HO.ED 11-05 00:03 → HO.EDOVER 11-05 00:39 → HO.S3 11-05 07:30 → HO.EDOVER 11-05 09:35
PROVIDERS: Admitting Provider Internal Medicine; Emergency Provider Emergency Medicine; Visit Provider Internal Medicine
DX: T78.3XXA Angioneurotic edema, initial encounter (principal); X58.XXXA Exposure to other specified factors, initial encounter; I10 Essential (primary) hypertension; H91.90 Unspecified hearing loss, unspecified ear; R13.10 Dysphagia, unspecified; R23.2 Flushing; R49.0 Dysphonia; R00.0 Tachycardia, unspecified; R06.82 Tachypnea, not elsewhere classified
CPT/HCPCS: 36415; 80048; 85025; 86140; 96372; 96374; 96375; 96376; 99221; 99285; J0171; J1200; J2930

== ENCOUNTER → 2023-11-05 00:35 | Outpatient (BNV) | payer MEDICARE, SELFPAY | PROVIDERS: Admitting Provider Internal Medicine; Emergency Provider Emergency Medicine; Visit Provider Internal Medicine | DX: I10 Essential (primary) hypertension (principal); T78.3XXA Angioneurotic edema, initial encounter | CPT/HCPCS: 99234; 99499 ==

== ENCOUNTER 2023-12-25 09:00 | Outpatient (REF) | payer MEDICARE, SELFPAY ==
--- NOTE | 2023-12-25 12:22 | MHC.AU.HA1 ---
Hearing Aid Evaluation Date of Visit: 12/25/23 Historical Information: Description of Hearing: Mild sensorineural hearing loss to borderline normal. Summary: Seen for evaluation. Notes difficulty hearing conversationally, asks for repetition, need to turn TV up. Amplification recommended. Discussed benefits and limitations. Reviewed styles, options. RITE recommended. Pt selected rechargeable. Would like to connect with Android phone to hear calls better. Hearing Aid Prescription: Based on the individual?s shared listening needs, communication environments, dexterity, desire for connectivity, and personal preferences, the following prescription for amplification has been made: Right ear: Make, Model, Color: Phonak Audeo L70 R sand beige Battery Size: Rechargeable Health Insurance Adjuster/Slim Tube: 1M Type of Earmold/Dome/CShell/SlimTip: sm vented Left ear: Make, Model, Color: Phonak Audeo L70 R sand beige Battery Size: Rechargeable Health Insurance Adjuster/Slim Tube: 1M Type of Earmold/Dome/CShell/SlimTip: sm vented Plan of Care: Patient wishes to purchase hearing aids as prescribed Action Taken/Action Needed: Medical Clearance to be requested from PCP/ENT Hearing Instrument Fitting to be scheduled when materials arrive Primary Diagnosis: H90.3 Bilateral Sensorineural Hearing Loss Signature: Provider: Clifton Corbin, [facility]
== END 2023-12-25 09:01 | disposition home or self-care (01) ==
LOC: HO.SH 09:00
PROVIDERS: PCP Nurse Practitioner Family; Visit Provider Nurse Practitioner Family
DX: Z01.118 Encounter for examination of ears and hearing with other abnormal findings (principal); H90.3 Sensorineural hearing loss, bilateral
CPT/HCPCS: 92557

== ENCOUNTER 2024-02-21 12:52 | Outpatient (AMB) | payer MEDICARE, SELFPAY ==
[2024-02-21 12:59] VITALS: BP 110/70; PULSE 72; TEMP 36.4; O2SAT 97; BMI 23.4
--- NOTE | 2024-02-21 12:59 | MHC.OFFWIV ---
Intake Vital Signs 02/21/24 12:59 Height 5 ft 6 in Weight 145 lb BMI 23.4 BP 110/70 Blood Pressure Location Lt brachial Position Sitting Pulse 72 Pulse Source Pulse Oximeter Temp 97.6 F Temp Source Temporal Artery Scan Pulse Oximetry (%) 97 Oxygen Delivery Method Room Air Intake Visit Reasons: EP UTI Intake Note: pt is here today for UTI started 1 day ago Patient Tobacco Use Status: Never used Tobacco Allergies amoxicillin Allergy (Verified 02/21/24 13:06) Angioedema ibuprofen [From Motrin] Allergy (Verified 02/21/24 13:06) Angioedema Do you need a note to return to daycare/school/sports/work: No HPI HPI Comments History of Present Illness Details Patient is a 78-year-old female presenting with 1 day of chills, burning when she urinates as well as suprapubic pain. She denies any fevers or increasing frequency of urination. She does state she has an anaphylactic allergy to penicillin but has taken Cipro in the past which has always cured her UTIs. She is also curious about estrogen cream for her prolapsed bladder. [facility] Medical History (Updated 02/21/24 @ 13:30 by Jania Roque PA-C) UTI (urinary tract infection) HTN (hypertension) Wheezing Neck swelling Tick bite Leukopenia Right ankle swelling Screening for breast cancer Palpitations Chest pain Dysuria Surgical History No pertinent past surgical history Family History Mother HTN (hypertension) Gastric lymphoma Father Lung cancer Sister CAD (coronary artery disease) Brother Prostate cancer genetic susceptibility HTN (hypertension) Social History Housing: House Alcohol intake: never Patient Tobacco Use Status: Never used Tobacco e-Cigarette/Vaping Use: Never Used Second Hand Smoke Exposure: No service: No 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 ) Current occupation: [employer] Current occupational exposures/hazards: No Cognitive needs: No Hearing needs: No Vision needs: No Review of Systems Const All systems reviewed & are unremarkable except as noted in HPI and below Physical Exam Vital Signs: Last Vital Signs Temp 97.6 F 02/21/24 12:59 Pulse 72 02/21/24 12:59 BP 110/70 02/21/24 12:59 Pulse Ox 97 02/21/24 12:59 Oxygen Delivery Method Room Air 02/21/24 12:59 BMI result Body Mass Index 23.4 Const General: cooperative, healthy appearing, comfortable, no acute distress and well developed Orientation/consciousness: patient oriented x3 Limitations: no limitations Resp Effort & Inspection: normal respiratory effort and able to speak in complete sentences GI Other: Tenderness to suprapubic palpation Inspection: Yes normal to inspection Neuro General: patient oriented x3 Results AMB Urinalysis, Automated UA Leukoctes 15 Yasir/uL Last Edit by NISA Maradiaga on 02/21/24 13:54 UA Nitrite Negative Last Edit by NISA Maradiaga on 02/21/24 13:54 UA Urobilinogen 0.2 mg/dL Last Edit by Diann Sanchez CCM on 02/21/24 13:54 UA Protein 0 mg/dL Last Edit by Diann Sanchez CCM on 02/21/24 13:54 UA pH 6.0 Last Edit by Diann Sanchez [facility] on 02/21/24 13:54 UA Blood 0 Del/uL Last Edit by Diann Sanchez CCM on 02/21/24 13:54 UA Specific [place] 1.010 Last Edit by Diann Sanchez CCM on 02/21/24 13:54 UA Ketone Negative Last Edit by Diann Sanchez CCM on 02/21/24 13:54 UA Bilirubin 0 mg/dL Last Edit by Diann Sanchez [facility] on 02/21/24 13:54 UA Glucose 0 mg/dL Last Edit by Diann Sanchez [facility] on 02/21/24 13:54 Assessment & Plan Assessment & Plan (1) UTI (urinary tract infection): Code(s): N39.0 - Urinary tract infection, site not specified Qualifiers: Hematuria presence: without hematuria Urinary tract infection type: acute cystitis Qualified Code(s): N30.00 - Acute cystitis without hematuria Plan: We she appears to be developing a UTI so we will treat with Cipro as it has worked well for her in the past, and with her anaphylactic allergy to penicillin. Recommended following up with her PCP or her OBGYN to discuss estrogen creams Plan See above Orders: Orders AMB Urinalysis Automated Today Z13.9 - Encounter for screening, unspecified Medications: New ciprofloxacin HCl 500 mg PO Q12H 14 tabs 0RF Coding Level of Care Code Est Pt Level 3 (55740) Diagnoses Acute cystitis without hematuria N30.00 Hematuria presence: without hematuria Urinary tract infection type: acute cystitis
== END 2024-02-21 14:23 | disposition home or self-care (01) ==
PROVIDERS: PCP Nurse Practitioner Family; Visit Provider Physician Assistant
DX: N30.00 Acute cystitis without hematuria (principal)
CPT/HCPCS: 81003; 99213

== ENCOUNTER 2024-03-24 09:37 | Outpatient (AMB) | payer MEDICARE, SELFPAY ==
--- NOTE | 2024-03-24 09:48 | MHC.PC.OV ---
Vital Signs 03/24/24 09:51 Height 5 ft 6 in Weight 147 lb BMI 23.7 BP 124/80 Blood Pressure Location Rt brachial Position Sitting Pulse 65 Pulse Source Pulse Oximeter Pulse Oximetry (%) 98 Oxygen Delivery Method Room Air Intake Visit Reasons: 6 month F/u Intake Note: Patient here to discuss recent thyroid biopsy and ED visit that happened in Oct. Allergies amoxicillin Allergy (Verified 03/24/24 09:51) Angioedema ibuprofen [From Motrin] Allergy (Verified 03/24/24 09:51) Angioedema Tobacco use date assessed: 03/24/24 Fall risk assessment: No Falls in past year Last assessed Fall Risk: 03/24/24 Dental Screening Dental Screen Date: 03/24/24 Did you have a dental visit in the last 12 months?: Yes Did you have a dental problem in the last 6 months where you did not have access to dental care?: No Was dental information given to patient?: Patient has dentist HPI 6 month F/u HPI Details palpitations: reports seeing cardio. Denies any recent palpitations, sob, cp, HINOJOSA, blurred vision. Edema is reported, intermittent, not often. Most likely attributed to the amlodipine. Pt counseled on leg elevation, watching sodium, and compression socks. Mentioned cosmetic edema from use of amlodipine. She will cont to monitor. [facility] Medical History Palpitations UTI (urinary tract infection) HTN (hypertension) Wheezing Neck swelling Tick bite Leukopenia Right ankle swelling Screening for breast cancer Chest pain Dysuria Surgical History No pertinent past surgical history Family History Mother HTN (hypertension) Gastric lymphoma Father Lung cancer Sister CAD (coronary artery disease) Brother Prostate cancer genetic susceptibility HTN (hypertension) Social History Housing: House Alcohol intake: never Patient Tobacco Use Status: Never used Tobacco e-Cigarette/Vaping Use: Never Used Second Hand Smoke Exposure: No service: No Current occupational status: employed Current occupation: [employer] Current occupational exposures/hazards: No Cognitive needs: No Hearing needs: No Vision needs: No Questionnaire PHQ-9 Over the last 2 weeks, how often have you been bothered by any of the following problems? 1. Little interest or pleasure in doing things: not at all 2. Feeling down, depressed, or hopeless: not at all 3. Trouble falling or staying asleep, or sleeping too much: not at all 4. Feeling tired or having little energy: several days 5. Poor appetite or overeating: not at all 6. Feeling bad about yourself - or that you are a failure or have let yourself or your family down: not at all 7. Trouble concentrating on things, such as reading the newspaper or watching television: not at all 8. Moving or speaking so slowly that other people could have noticed. Or the opposite - being so fidgety or restless that you have been moving around a lot more than usual: not at all 9. Thoughts that you would be better off or of hurting yourself in some way: not at all Total score: 1 Depression Screening Interpretation: Negative Depression Screening Done: Yes [id number] - PHQ-9 Billing: Yes Source: Developed by Drs. Nic Luke, Celsa Rogers, Ramiro Rivers and colleagues, with an educational iraida from [employer]. Thrive Questionnaire Date Thrive assessed: 03/24/24 I am a: Patient What is your living situation today?: I have a steady place to live Within the past 12 months, did the food you bought not last and you didn't have the money to get more?: Never true Within the past 12 months, did you worry whether your food would run out before you got money to buy more?: Never true Do you have trouble paying for medicines?: No Do you have trouble getting transportation to medical appointments?: No Do you have trouble paying your heating and electricity bill?: No Do you have trouble taking care of your child, family member or friend?: No Do you have trouble with day-to-day activities such as bathing, preparing meals, shopping, managing finances, etc.?: No Are you currently unemployed and looking for a job?: No Are you interested in more education?: No Please select the resources that you would like help with: Housing/Retirement Currently or been in a relationship where the following occur: No concerns reported THRIVE Score: 0 AUDIT C Alcohol Use Questionnaire (AUDIT-C) 1. How often do you have a drink containing alcohol?: 4 or more times a week 2. How many drinks containing alcohol do you have on a typical day when you are drinking?: 1 or 2 3. How often do you have six or more drinks on one occasion?: Never Total Score: 4 LITA-7 AMB Questionnaire LITA-7 Date LITA - 7 assessed: 03/24/24 Feeling nervous, anxious, or on edge: 0 = Not at all Not being able to stop or control worryin = Several days Worrying too much about different things: 1 = Several days Trouble relaxin = Not at all Being so restless that it is hard to sit still: 0 = Not at all Becoming easily annoyed or irritable: 1 = Several days Feeling afraid as if something awful might happen: 0 = Not at all Total LITA-7 score (0-4 normal; 5-9 mild; 10-14 moderate; 15-21 severe): 3 Source: Developed by Drs. Nic Luke, Celsa Rogers, Ramiro Rivers and colleagues, with an educational iraida from [employer]. LITA-7 Assessment Billing LITA-7 Assessment Tool: LITA-7 Assessment 68253 Physical exam (Primary Care) Vital Signs: Last Vital Signs Pulse 65 03/24/24 09:51 BP 124/80 03/24/24 09:51 Pulse Ox 98 03/24/24 09:51 Oxygen Delivery Method Room Air 03/24/24 09:51 BMI result Body Mass Index 23.7 Tobacco/Smoking Status: Tobacco use Status Tobacco use date assessed 03/24/24 03/24/24 09:54 Patient Tobacco Use Status Never used Tobacco 03/24/24 09:49 e-Cigarette/Vaping Use Never Used 03/24/24 09:49 PHQ-9: PHQ-9 Score PHQ-9: Total score 1 03/24/24 10:10 Depression Screening Interpretation: Negative Thrive Assessment: Date of Thrive Assessment Date Thrive assessed 03/24/24 03/24/24 09:54 Currently or been in a relationship where the following occur: No concerns reported Resp Auscultation: clear to auscultation bilaterally Cardio Rate: regular rate Rhythm: regular rhythm Heart sounds: S1 normal heart sound present, S2 normal heart sound present and Murmur heart sound present systolic Extrem Right lower extremity: edema (trace) Left lower extremity: edema (trace) Assessment and Plan Assessment & Plan (1) Palpitations: Code(s): R00.2 - Palpitations Plan: denies any palpitations (2) Edema: Code(s): R60.9 - Edema, unspecified Plan: most likely from the amlodipine Orders: Orders Complete Blood Count Auto Diff Today R00.2 - Palpitations TSH reflex Free T4 Today R00.2 - Palpitations UA CC w/rflx Micro + Cult Today R00.2 - Palpitations Vitamin D 25-OH Total Today R00.2 - Palpitations Comprehensive [place]. Panel Fast Today R00.2 - Palpitations Lipid Panel Today R00.2 - Palpitations B Type Natriuretic Peptide Today R00.2 - Palpitations, R60.9 - Edema, unspecified Coding Level of Care Code Est Pt Level 3 (54978) Diagnoses Palpitations R00.2 Edema R60.9 Additional Codes LITA-7 Assessment Billing - LITA-7 Assessment Tool: LITA-7 Assessment [id number] ([id number])
[2024-03-24 09:51] VITALS: BP 124/80; PULSE 65; O2SAT 98; BMI 23.7
== END 2024-03-24 10:17 | disposition home or self-care (01) ==
PROVIDERS: PCP Nurse Practitioner Family; Visit Provider Nurse Practitioner Family
DX: R00.2 Palpitations (principal); R60.9 Edema, unspecified
CPT/HCPCS: 99213

== ENCOUNTER 2024-05-14 09:31 | Outpatient (AMB) | payer MEDICARE, SELFPAY ==
[2024-05-14 10:13] VITALS: BP 124/86; PULSE 72; TEMP 36.7; O2SAT 97; BMI 23.2
--- NOTE | 2024-05-14 10:13 | AM.OFFWIN_ITS ---
Intake Vital Signs 05/14/24 10:13 Height 5 ft 6 in Weight 144 lb BMI 23.2 BP 124/86 Blood Pressure Location Rt brachial Position Sitting Pulse 72 Pulse Source Pulse Oximeter Temp 98.0 F Temp Source Oral Pulse Oximetry (%) 97 Oxygen Delivery Method Room Air Intake Visit Reasons: EP Fall/Injury to RT eye Intake Note: Pt presents to the office today for c/o falling yesterday on concrete and hitting her face. Pt states she has a bandage near her eye which she is having trouble getting off. Pt states she also has some swelling on the right side of her face. Pt denies LOC. Patient Tobacco Use Status: Never used Tobacco Allergies amoxicillin Allergy (Verified 05/14/24 10:15) Angioedema ibuprofen [From Motrin] Allergy (Verified 05/14/24 10:15) Angioedema HPI EP Fall/Injury to RT eye HPI Details This note is constructed using voice recognition software. While every effort has been made to ensure accuracy, cloth booker errors may have been included. The patient is a 78 year old female who presents to the clinic today with abrasion to right eye and right palm after a fall yesterday at the store. She notes that she had fallen after tripping over her sandals, landing on her right side of her face striking it on concrete, and scraping her right hand on the same concrete. She notes when she initially got up she had bloody nose, blood around the eye, and she could not get the bleeding to stop initially. She did have some passersby help her to get up. She declined going to the ER at that time due to just wanting to get home. She noticed a small linear laceration to the corner of her right eye, which she put a butterfly bandage on to stop the bleeding which helped. She is now unable to remove the Band-Aid that she placed as a butterfly. She has been icing the right eye and this seems to help the pain. She denies any dizziness, lightheadedness, chest pain, palpitations, confusion, difficulty with vision, pain in the eye, particularly any involved with movement. She takes a baby aspirin but no other blood thinners. [facility] Medical History Palpitations UTI (urinary tract infection) HTN (hypertension) Wheezing Neck swelling Tick bite Leukopenia Right ankle swelling Screening for breast cancer Chest pain Dysuria Surgical History No pertinent past surgical history Family History Mother HTN (hypertension) Gastric lymphoma Father Lung cancer Sister CAD (coronary artery disease) Brother Prostate cancer genetic susceptibility HTN (hypertension) Social History Housing: House Alcohol intake: never Patient Tobacco Use Status: Never used Tobacco e-Cigarette/Vaping Use: Never Used Second Hand Smoke Exposure: No service: No Current occupational status: employed Current occupation: [employer] Current occupational exposures/hazards: No Cognitive needs: No Hearing needs: No Vision needs: No Review of Systems Const All systems reviewed & are unremarkable except as noted in HPI and below Physical Exam Vital Signs: Last Vital Signs Temp 98.0 F 05/14/24 10:13 Pulse 72 05/14/24 10:13 BP 124/86 05/14/24 10:13 Pulse Ox 97 05/14/24 10:13 Oxygen Delivery Method Room Air 05/14/24 10:13 BMI result Body Mass Index 23.2 Const General: cooperative, healthy appearing, comfortable, no acute distress and well developed Orientation/consciousness: patient oriented x3 Limitations: no limitations Eyes Other: Ecchymosis to upper right eyelid and surroundings structure. No open lack, however there is a linear working to the corner of the right eye, that is well approximated. Abrasion to the right of the eye. Alignment and Position: alignment normal Conjunctivae: conjunctivae normal Sclerae: sclerae normal Corneas: corneas normal Pupils: Equal, round and reactive pupils present EOM: EOMs intact bilaterally Resp Effort & Inspection: normal respiratory effort and able to speak in complete sentences Skin Other: Abrasion to right palm approximately 4 x 4 cm. Neuro General: patient oriented x3 Cranial nerves: Yes Equal, round and reactive pupils present Assessment & Plan Assessment & Plan (1) Fall: Code(s): W19.XXXA - Unspecified fall, initial encounter Qualifiers: Encounter type: initial encounter Qualified Code(s): W19.XXXA - Unspecified fall, initial encounter Plan: Advised patient to monitor for any additional increased weakness. This appears to be related to footwear, advised good footwear at all times for prevention. Additionally she goes to the [facility] for exercise regularly, and she will continue to do so. Advised patient to follow with PCP with any worsening balance issues as she may benefit from physical therapy with ongoing symptoms. (2) Abrasion hand: Code(s): S60.519A - Abrasion of unspecified hand, initial encounter Qualifiers: Encounter type: initial encounter Laterality: right Qualified Code(s): S60.511A - Abrasion of right hand, initial encounter Plan: Advised to keep area clean and dry. Advised to avoid applying things such as Neosporin as they delayed healing. Advised patient to follow up any any signs of infection including erythematous streaking, discharge with odor. (3) Abrasion of face: Code(s): S00.81XA - Abrasion of other part of head, initial encounter Qualifiers: Encounter type: initial encounter Qualified Code(s): S00.81XA - Abrasion of other part of head, initial encounter Plan: Advised patient to keep area clean and dry. She should not applied anything to the area. May use ice for pain as well as Tylenol as needed. Given involvement near and around the eye, advised Ophthalmology should she develop any difficulty with vision at all. Plan See above for full details and plan. Given patient's presentation, we discussed emergency room evaluation may have been an appropriate response yesterday, however given her lack of any visual impairment, we elected to treat conservatively. Advised patient to go to the emergency room should she develop any dizziness, lightheadedness, confusion as she would benefit from a scan. Coding Level of Care Code Est Pt Level 3 (96681) Diagnoses Fall, initial encounter W19.XXXA Encounter type: initial encounter Abrasion of right hand, initial encounter S60.511A Encounter type: initial encounter Laterality: right Abrasion of face, initial encounter S00.81XA Encounter type: initial encounter
== END 2024-05-14 11:22 | disposition home or self-care (01) ==
PROVIDERS: PCP Nurse Practitioner Family; Visit Provider Registered Nurse
DX: S60.511A Abrasion of right hand, initial encounter (principal); S00.81XA Abrasion of other part of head, initial encounter; W19.XXXA Unspecified fall, initial encounter
CPT/HCPCS: 99213

== ENCOUNTER 2024-07-24 12:36 | Outpatient (REF) | payer MEDICARE, SELFPAY ==
--- NOTE | ~2024-07-24 | MM_ITS ---
EXAMINATION: MM SCREENING DIGITAL BREAST TOMOSYNTHESIS, BILATERAL CLINICAL INFORMATION: Screening. Asymptomatic. COMPARISON: Mammography: Comparison is made with available priors TECHNIQUE: Digital breast mammography with tomosynthesis is performed in both the craniocaudal and mediolateral oblique views along with computer-aided detection (CAD). FINDINGS: The breasts are heterogeneously dense, which may obscure small masses (ACR BI-RADS breast composition Category c). There are no significant masses, abnormal calcifications, or other abnormalities. MM/MM tomosynthesis screening BI IMPRESSION: No mammographic evidence of malignancy. ASSESSMENT: BI-RADS BI-RADS 1 - Negative RECOMMENDATION: Routine annual mammography screening. 1 year F/U This examination should not preclude the clinical evaluation of a suspicious palpable abnormality. This patient's information was entered into a reminder system with a target due date for their next mammogram. Electronically signed by: Misty Leon DO 08/01/2024 12:47 PM [facility]
--- NOTE | ~2024-07-24 | MM_ITS ---
EXAMINATION: BONE DENSITOMETRY CLINICAL INDICATION: Age-related osteoporosis without current pathological fracture. COMPARISON: Previous BD dated 06/09/2022 and baseline BD dated 05/25/2008. TECHNIQUE: Using a [employer] DXA System (software version: 13.1) manufactured by [employer], dual-energy x-ray absorptiometry was performed of the lumbar spine and left hip. The images are of good technical quality. Summary results are attached. FINDINGS: LEFT FEMUR, NECK: Current: BMD 0.725 g/cm2, Z-score -0.2, T-score -2.3, osteopenia. Prior: BMD 0.726 g/cm2. Baseline: BMD 0.822 g/cm2. LEFT FEMUR, TOTAL: Current: BMD 0.711 g/cm2, Z-score -0.4, T-score -2.4, osteopenia, 0.8% decrease from previous, 17.7% decrease from baseline (<5% change is not significant). Prior: BMD 0.717 g/cm2. Baseline: BMD 0.864 g/cm2. AP SPINE L1-L4 (excluding L3): The data of L1-L4 has been changed to exclude the L3 vertebral body, because significant degenerative change at this level may cause overestimation of lumbar spine density. Current: BMD 0.966 g/cm2, Z-score 0.1, T-score -1.7, osteopenia, 0.7% decrease from previous, 0.2% decrease from baseline (<5% change is not significant). Prior: BMD 0.973 g/cm2. Baseline: BMD 0.968 g/cm2. IDENTIFIED RISK FACTORS: Menopause, height loss, family history (parent hip fracture), osteoporosis, secondary osteoporosis. HISTORY OF FRACTURE: None listed. MEDICATIONS: Vitamin D. MM/XR DEXA axial skeleton IMPRESSION: 1. DIAGNOSIS: Osteopenia based on the lowest T-score value of -2.4 in the total femur applying World Health Organization criteria. 2. 10-YEAR FRACTURE RISK PREDICTION, FRAX: Major osteoporotic fracture (clinical spine, forearm, hip or shoulder) 29.8%. Hip fracture 20.0%. 3. Treatment Recommendations: NOF guidelines recommend consideration for treatment in postmenopausal women and men age 50 and older presenting with the following: -A hip or vertebral (clinical or morphometric) fracture. -T-score less than or equal to -2.5 at the femoral neck or spine after appropriate evaluation to exclude secondary causes. -Low bone mass at the hip or spine and a 10-year fracture probability by FRAX of greater than or equal to 3% for hip fracture or greater than or equal to 20% for major osteoporotic fracture based on the [place] adapted WHO algorithm. 4. Other Recommendations: All treatment decisions require clinical judgment and consideration of individual patient factors, including patient preferences, comorbidities, previous drug use, risk factors not captured in the FRAX model (e.g. frailty, falls, vitamin D deficiency, increased bone turnover, interval significant decline in bone density) and possible under or overestimation of fracture risk by FRAX. Additional medical evaluation for secondary cause of low bone mineral density may be appropriate. FUTURE SCAN RECOMMENDATION: People with diagnosed cases of osteoporosis or at high risk for fracture should have regular bone mineral density tests. For patients eligible for Medicare, routine testing is allowed once every 2 years. The testing frequency can be increased to one year for patients who have rapidly progressing disease, those who are receiving or discontinuing medical therapy to restore bone mass, or have additional risk factors. Electronically signed by: Jhon Gardner MD 07/24/2024 03:01 PM [facility]
== END 2024-07-24 12:37 | disposition home or self-care (01) ==
LOC: HO.MAMMO 12:36
PROVIDERS: PCP Nurse Practitioner Family; Visit Provider Nurse Practitioner Family
DX: Z12.31 Encounter for screening mammogram for malignant neoplasm of breast (principal); M81.0 Age-related osteoporosis without current pathological fracture
CPT/HCPCS: 77063; 77067; 77080

== ENCOUNTER → 2024-07-24 12:45 | Outpatient (BNV) | payer MEDICARE, SELFPAY | PROVIDERS: PCP Nurse Practitioner Family; Visit Provider Internal Medicine | DX: Z12.31 Encounter for screening mammogram for malignant neoplasm of breast (principal) | CPT/HCPCS: 77063; 77067 ==

== ENCOUNTER 2024-09-16 08:07 | Outpatient (REF) | payer MEDICARE, SELFPAY ==
[2024-09-16 09:56] LABS: MANUAL DIFF FLAG NO
[2024-09-16 09:57] LABS: Appearance Urine Clear; Color Urine Yellow; Glucose Urine UA Negative (Negative); Leukocyte Esterase Urine Negative (Negative); Nitrite Urine Negative (Negative); PH 6.5 (5.0-9.0); Urine Blood Negative (Negative); Urine Ketones Negative (Negative); Urine Protein Negative (Neg-Trace)
[2024-09-16 10:05] LABS: Basophils Percent Auto 0.9 % (0-2); Eosinophils Absolute Auto 0.2 X10*3/uL (0.0-0.4); Eosinophils Percent Auto 4.6 % (0-4); Hematocrit 43.1 % (37.0-47.0); Hemoglobin 14.4 g/dl (12.0-16.0); Imm Gran Abs Auto 0.01 X10*3/uL (0.00-0.03); Imm Gran Pct Auto 0.2 % (0.0-0.4); Lymphocytes Absolute Auto 1.4 X10*3/uL (1.2-4.9); Mean Corpuscular HGB Conc 33.4 g/dl (31.0-35.0); Mean Corpuscular Hemoglobin 30.1 pg (27.0-33.0); Mean Corpuscular Volume 90.2 fL (80.0-98.0); Mean Platelet Volume 9.8 fL (9.4-12.3); Monocytes Absolute Auto 0.5 X10*3/uL (0.1-1.2); Monocytes Percent Auto 9.8 % (2-11); Neutrophils Absolute Auto 2.5 x10*3/uL (2.0-8.3); Neutrophils Percent Auto 54.5 % (45-73); Platelet Count 281 X10*3/uL (160-400); Red Blood Count 4.78 X10*6/uL (4.20-5.50); Red Cell Distribution Width 13.2 % (11.0-16.0); White Blood Count 4.6 X10*3/uL (4.8-10.8)
[2024-09-16 10:25] LABS: B Type Natriuretic Peptide 38 pg/mL (<100)
[2024-09-16 10:39] LABS: Alanine Aminotransferase 25 U/L (0-31); Albumin Level 4.1 g/dL (3.5-5.0); Alkaline Phosphatase 70 U/L (39-117); Anion Gap 9 (12-20); Aspartate Amino Transferase 29 U/L (5-31); Bilirubin Total 0.5 mg/dL (0.0-1.0); Blood Urea Nitrogen 11 mg/dL (9-16); Calcium 9.3 mg/dL (8.4-10.2); Carbon Dioxide 31 mmol/L (22-29); Chloride 108 mmol/L (96-108); Cholesterol 222 mg/dL (<200); Estimated Glomerular Filt Rate > 60; Glucose Fasting 101 mg/dL (60-99); HDL Cholesterol 90 mg/dL (>40); LDL Cholesterol Calculated 123 mg/dL (<100); Potassium 4.7 mmol/L (3.3-5.1); Sodium 143 mmol/L (135-145); Total Protein 6.7 g/dL (6.5-8.0); Triglycerides 48 mg/dL (<150)
[2024-09-16 10:58] LABS: TSH reflex Free T4 1.52 uIU/mL (0.32-4.0); Vitamin D 25-OH Total 50.3 ng/mL (>30)
== END 2024-09-16 08:08 | disposition home or self-care (01) ==
LOC: HO.HMGCLDS 08:07
PROVIDERS: PCP Nurse Practitioner Family; Visit Provider Nurse Practitioner Family
DX: R00.2 Palpitations (principal); R60.9 Edema, unspecified
CPT/HCPCS: 36415; 80053; 80061; 81003; 82306; 83880; 84443; 85025

== ENCOUNTER 2024-09-29 13:30 | Outpatient (AMB) | payer MEDICARE, SELFPAY ==
[2024-09-29 13:32] VITALS: BP 122/78; PULSE 76; O2SAT 97; BMI 23.9
--- NOTE | 2024-09-29 13:32 | AM.OFFVISMDC ---
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 Accompanied by: Self / Same As Patient Allergies amoxicillin Allergy (Verified 09/29/24 14:12) Angioedema ibuprofen [From Motrin] Allergy (Verified 09/29/24 14:12) Angioedema Medication List - Last Reconciled 09/29/24 by LEATHA Guerra amlodipine (Norvasc) 5 mg PO DAILY 90 days aspirin 81 mg PO DAILY diphenhydramine HCl (Allergy Medication) 25 mg PO TID PRN epinephrine (Epinephrine Professional) 1 mg IM Q20M PRN famotidine (Pepcid) 20 mg PO BID metoprolol succinate ER 25 mg PO DAILY Do you need a note to return to daycare/school/sports/work: No HPI [facility] G0439 HPI Details medicare wellness. CCC in scan pile. PPP in scan pile. NOTE: increased GERD recently, no sob or CP, was taking a higher dose of tumeric, which she will slow down, will still get a EKG today. [facility] Medical History Palpitations UTI (urinary tract infection) HTN (hypertension) Wheezing Neck swelling Tick bite Leukopenia Right ankle swelling Screening for breast cancer Chest pain Dysuria Surgical History No pertinent past surgical history Family History Mother HTN (hypertension) Gastric lymphoma Father Lung cancer Sister CAD (coronary artery disease) Brother Prostate cancer genetic susceptibility HTN (hypertension) Social History Housing: House Alcohol intake: never Patient Tobacco Use Status: Never used Tobacco e-Cigarette/Vaping Use: Never Used Second Hand Smoke Exposure: No service: No Current occupational status: employed 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 Current occupational exposures/hazards: No Cognitive needs: No Hearing needs: No Vision needs: No Questionnaire Medicare Wellness Checkup [age] What gender do you identify with?: female During the past 4 weeks, how much have you been bothered by emotional problems such as feeling anxious, depressed, irritable, sad or downhearted, and blue?: slightly During the past 4 weeks, has your physical & emotional health limited your social activities with family, friends, neighbors, or groups?: not at all During the past 4 weeks, how much bodily pain have you generally had?: very mild pain During the past 4 weeks, was someone available to help you if you needed & wanted help?: yes, as much as I wanted During the past 4 weeks, what was the hardest physical activity you could do for at least 2 minutes?: heavy Can you get to places out of walking distance without help? (For eg., can you travel alone on buses, taxis or drive your car?): Yes Can you go shopping for groceries or clothes without someone's help?: Yes Can you prepare your own meals?: Yes Can you do your housework without help?: Yes Because of any health problems, do you need the help of another person with your personal care needs such as eating, bathing, dressing or getting around the house?: No Can you handle your own money without help?: Yes During the past 4 weeks, how would you rate your health in general?: very good During the past 4 weeks how have things been going for you?: pretty well Are you having difficulties driving your car?: no Do you always fasten your seat belt when you are in a car?: yes, usually During past 4 weeks, have you been bothered by the following: never: Falling or dizzy when standing up, Sexual problems?, Trouble eating well? and Problems using the telephone? and seldom: Teeth or denture problems? and Tiredness or fatigue? Have you fallen 2 or more times in the past year?: Yes Are you afraid of falling?: No Are you a smoker?: no During the past 4 weeks, how many drinks of wine, beer, or other alcoholic beverages did you have?: 6-9 drinks per week Do you exercise for about 20 minutes 3 or more times a week?: yes, most of the time Have you been given information to help with the following?: yes: Hazards in your house that might hurt you? and yes: Keeping track of your medications? How often do you have trouble taking medicines the way you have been told to take them?: I always take medicine as prescribed How confident are you that you can control & manage most of your health problems?: very confident What is your race?: White Mini Mental State Exam (MMSE) Orientation What is the (year) (season) (date) (day) (month)?: year, season, date, day and month Where are we (state) (county) (town or city) (hospital) (floor)?: state, county, town or city, hospital/clinic and floor Registration Name of 3 unrelated objects clearly and slowly, then ask patient to repeat all 3 of them. (1st repeat determines score. Make sure they can repeat all three): object 1, object 2 and object 3 Attention & Calculation (CHOOSE ONE) Spell WORLD backwards (DLROW): 5 letters Recall Ask patient to repeat the 3 items from question #3.: object 1, object 2 and object 3 Language Show patient a wristwatch & ask what it is. Repeat for pencil.: watch and pencil Ask the patient to repeat the phrase 'No ifs, ands, or buts' after you.: correct Ask the patient to 'take a piece of paper with their right hand' 'fold paper in half' 'place paper on floor': take paper in right hand, fold paper in half and place paper on floor Print the sentence 'CLOSE YOUR EYES' on a piece. If patient actually closes eyes then score.: followed written direction Give patient a blank piece of paper & ask to write a sentence. Score if it contains a noun & verb.: sentence contains subject and verb Ask patient to copy figure of intersecting pentagons exactly. Score if all 10 angles & 2 intersects are included.: all 10 angles present & 2 are intersected Score Score: 30 Activity of Daily Living Bathing - sponge bath, tub bath or shower: receives no assistance (gets in/out by self, if usual bathing means Dressing - getting clothes from closets & drawers, including inner/outer garments & fasteners.: gets clothes & gets completely dressed without help Toileting - going to the 'toilet room' for urine/bowel elimination & cleaning self/arranging clothes: goes to toilet room, cleans self, arranges clothes without help Transfer: moves in & out of bed and chair without help (may use support object) Continence: controls urination/bowel movements completely by self Feeding: feeds self without help Total Score: 0 Information obtained from: patient Using telephone: independent Traveling: independent Shopping: independent Preparing meals: independent Housework: independent Taking medicine: independent Managing money: independent PHQ-9 Over the last 2 weeks, how often have you been bothered by any of the following problems? 1. Little interest or pleasure in doing things: not at all 2. Feeling down, depressed, or hopeless: not at all 3. Trouble falling or staying asleep, or sleeping too much: several days 4. Feeling tired or having little energy: not at all 5. Poor appetite or overeating: not at all 6. Feeling bad about yourself - or that you are a failure or have let yourself or your family down: not at all 7. Trouble concentrating on things, such as reading the newspaper or watching television: not at all 8. Moving or speaking so slowly that other people could have noticed. Or the opposite - being so fidgety or restless that you have been moving around a lot more than usual: not at all 9. Thoughts that you would be better off or of hurting yourself in some way: not at all Total score: 1 Depression Screening Interpretation: Negative Depression Screening Done: Yes 36728 - PHQ-9 Billing: Yes Source: Developed by Drs. Nic Luke, Celsa Rogers, Ramiro Rivers and colleagues, with an educational iraida from [employer]. LITA-7 AMB Questionnaire LITA-7 Date LITA - 7 assessed: 09/29/24 Feeling nervous, anxious, or on edge: 0 = Not at all Not being able to stop or control worryin = Several days Worrying too much about different things: 1 = Several days Trouble relaxin = Not at all Being so restless that it is hard to sit still: 0 = Not at all Becoming easily annoyed or irritable: 1 = Several days Feeling afraid as if something awful might happen: 0 = Not at all Total LITA-7 score (0-4 normal; 5-9 mild; 10-14 moderate; 15-21 severe): 3 Source: Developed by Drs. Nic Luke, Celsa Rogers, Ramiro Rivers and colleagues, with an educational iraida from [employer]. LITA-7 Assessment Billing LITA-7 Assessment Tool: LITA-7 Assessment 36330 Physical Exam Vital Signs: Last Vital Signs Pulse 76 09/29/24 13:32 BP 122/78 09/29/24 13:32 Pulse Ox 97 09/29/24 13:32 Oxygen Delivery Method Room Air 09/29/24 13:32 BMI result Body Mass Index 23.9 Neuro Other: able to stand from sitting position, did not pass whisper test, neg rhomberg. Assessment & Plan Assessment & Plan (1) Encounter for subsequent annual wellness visit (AWV) in Medicare patient: Code(s): Z00.00 - Encounter for general adult medical examination without abnormal findings (2) GERD (gastroesophageal reflux disease): Code(s): K21.9 - Gastro-esophageal reflux disease without esophagitis Plan . Orders: Orders AMB EKG-In Office Today K21.9 - Gastro-esophageal reflux disease without esophagitis Medications: New metronidazole 0.75% (MetroCream) 1 appl topical BID 45 grams 1RF Quality Reporting (2019) Depression/Bipolar (159/160/161/177) PHQ-9: Total score: 1 Coding Level of Care Code Medicare First (G0438) Diagnoses Encounter for subsequent annual wellness visit (AWV) in Medicare patient Z00.00 GERD (gastroesophageal reflux disease) K21.9 CPT Codes Advance Care Planning - Time spent: 1-15 minutes, on File ([id number]) Additional Codes LITA-7 Assessment Billing - LITA-7 Assessment Tool: LITA-7 Assessment 33214 ([id number]) PHQ-9 - 96462 - PHQ-9 Billing: Yes ([id number]) Advance Care Planning Forms completed: Health Care Proxy (pt will bring in a copy), MOLST (pt will bring in copy of form) and Living will (pt reported this was already done) Time spent: 1-15 minutes, on File Actual minutes spent: 12
== END 2024-09-29 15:21 | disposition home or self-care (01) ==
PROVIDERS: PCP Nurse Practitioner Family; Visit Provider Nurse Practitioner Family
DX: Z00.00 Encounter for general adult medical examination without abnormal findings (principal); K21.9 Gastro-esophageal reflux disease without esophagitis

== ENCOUNTER → 2024-09-29 13:30 | Outpatient (BNVA) | payer MEDICARE, SELFPAY | PROVIDERS: PCP Nurse Practitioner Family; Visit Provider Nurse Practitioner Family | DX: Z00.00 Encounter for general adult medical examination without abnormal findings (principal); I10 Essential (primary) hypertension; R00.2 Palpitations; K21.9 Gastro-esophageal reflux disease without esophagitis | CPT/HCPCS: 93005; 96127; 99212 ==

== ENCOUNTER 2024-09-29 15:10 | Outpatient (AMB) | payer MEDICARE, SELFPAY ==
[2024-09-29 15:15] VITALS: BP 120/62; PULSE 64; BMI 23.8
--- NOTE | 2024-09-29 15:15 | A.OFFVIS_ITS ---
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 She has background history of palpitations. She was started on metoprolol in the past with some improvement in her symptoms. She is returning in complaining of palpitations happening once every couple of weeks. She is describing that the heart skips beats. She has no chest discomfort shortness of breath. 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 She previously had echocardiography which showed basal inferior wall motion abnormality. Given lack of symptoms we did not pursue any further testing for that. She is on metoprolol and Norvasc and her blood pressure control is good. 07/02/23: She returns for follow-up. Previously cardiac event monitor did not show any significant arrhythmia. She continues to get some palpitations 1 to twice a month lasting for few seconds. 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 Her blood pressure control is good. 09/29/2024: She is here for follow-up. She occasionally gets palpitations will last for few seconds. Usually happen when she is under stress. No prolonged episodes otherwise. No chest discomfort shortness of breath. Physically active. [facility] Medical History (Updated 09/29/24 @ 14:55 by Edward Barajas, [facility]-) HTN (hypertension) Palpitations UTI (urinary tract infection) Wheezing Neck swelling Tick bite Leukopenia Right ankle swelling Screening for breast cancer Chest pain Dysuria Surgical History No pertinent past surgical history Family History Mother HTN (hypertension) Gastric lymphoma Father Lung cancer Sister CAD (coronary artery disease) Brother Prostate cancer genetic susceptibility HTN (hypertension) Social History Housing: House Alcohol intake: never Patient Tobacco Use Status: Never used Tobacco e-Cigarette/Vaping Use: Never Used Second Hand Smoke Exposure: No service: No Current occupational status: employed Current occupation: [employer] Current occupational exposures/hazards: No Cognitive needs: No Hearing needs: No Vision needs: No Review of Systems Const Denies chills, Denies fatigue, Denies fever(s), Denies frequent falls, Denies weakness, Denies weight gain and Denies weight loss ENT Denies dizziness Card Denies chest pain, Denies leg edema, Denies lightheadedness, Denies palpitations, Denies dyspnea and Denies dyspnea on exertion Resp Denies cough, Denies dyspnea and Denies dyspnea on exertion GI Denies hematochezia Musc Denies abnormal gait, Denies muscle weakness, Denies numbness, Denies radiating pain into limb and Denies tingling Neuro Denies abnormal gait, Denies dizziness, Denies frequent falls, Denies numbness, Denies tingling and Denies weakness Endo Denies fatigue and Denies palpitations Physical Exam Vital Signs: Last Vital Signs Pulse 64 09/29/24 15:15 BP 120/62 09/29/24 15:15 BMI result Body Mass Index 23.8 GENERAL APPEARANCE: in no acute distress, pleasant. NECK: no carotid bruit, no jugular venous distention. SKIN: no suspicious lesions, warm and dry. HEART: no murmurs, regular rate and rhythm. LUNGS: clear to auscultation bilaterally. ABDOMEN: soft, nontender. EXTREMITIES: no edema. PERIPHERAL PULSES: equal. NEUROLOGIC: No gross deficits, AAO X 3 Assessment & Plan Assessment & Plan (1) HTN (hypertension): Comment: stable Code(s): I10 - Essential (primary) hypertension Category: Medical Qualifiers: Hypertension type: primary hypertension Qualified Code(s): I10 - Essential (primary) hypertension (2) Palpitations: Code(s): R00.2 - Palpitations Category: Medical Plan Pleasant 79 year female who is here for follow-up. She has background history of hypertension. Blood pressure is well controlled with amlodipine and metoprolol succinate. She had some palpitations previously with no significant arrhythmia noticed on previous monitoring. She has short episodes of occasional palpitations lasting for few seconds at a time. I have advised her that if she gets any prolonged episodes then she should get in touch with us otherwise see us back in 1 year. Clinically stable. Thank you for allowing me to participate in the care of your patient. Please feel free to contact me if you have any questions. Coding Level of Care Code Est Pt Level 3 (24111) Diagnoses Primary hypertension I10 Hypertension type: primary hypertension Palpitations R00.2
== END 2024-09-29 15:38 | disposition home or self-care (01) ==
PROVIDERS: PCP Nurse Practitioner Family; Visit Provider Internal Medicine Cardiovascular Disease
DX: I10 Essential (primary) hypertension (principal); R00.2 Palpitations
CPT/HCPCS: 99213

== ENCOUNTER 2024-10-16 08:12 | Outpatient (REF) | payer MEDICARE, SELFPAY ==
--- OUTSIDE RECORDS SUMMARY | 2024-10-16 09:08 | XMS_ITS | Clinical Summary ---
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 Active Social History Tobacco Use Types Packs/Day Years Used Date Smoking Tobacco: Never Smokeless Tobacco: Never Comments Unknown Sex and Gender Information Value Date Recorded Sex Assigned at Not on file Legal Sex Female 8:18 PM EST Gender Identity Not on file Sexual Orientation Not on file Last Filed Vital Signs Vital Sign Reading Time Taken Comments Blood Pressure 154/92 03/30/2020 2:42 PM EDT Pulse 90 03/30/2020 2:42 PM EDT Temperature 37.3 ??C (99.1 ??F) 03/30/2020 2:42 PM ED T Respiratory Rate 16 03/30/2020 2:42 PM EDT Oxygen Saturation 99% 03/30/2020 2:42 PM EDT Inhaled Oxygen Concentration - - Weight - - Height - - Body Mass Index - - Plan of Treatment Health Maintenance Due Date Last Done Comments HIV screening 1959 Hepatitis C screening 1964 Tetanus adult (Td q 10,TDAP once) 1966 Lipid disorder screening 1986 Diabetes screening 1991 Shingles vaccine (Shingrix) (1 of 2 - Shingrix (RZV) 2 Dose Standard Series) 1996 Osteoporosis screening (bone density) 2011 Pneumo Vaccine 65+ (1 of 1 - PCV) 2011 RSV Discussion (1 - 1-dose 7 5+ series) 2021 Influenza vaccine 04/10/2024 Covid-19 vaccine series (2023- season) 2024 Breast cancer screening Discontinued Cervical cancer screening Discontinued Meningococcal Vaccine Aged Out No [place] eligible based on patient's age to complete this topic Insurance MEDICARE [facility] MEDICARE [facility] MEDICARE [facility] Care Teams Plant Safety Engineer Relationship Specialty Start Date End Date Edward Barajas NP [address] [place] [id number] PCP - General Family Medicine 03/30/20
[2024-10-16 11:20] LABS: Influenza A PCR NEGATIVE (Negative); Influenza B PCR NEGATIVE (Negative); Resp Syncy Virus RNA Qual PCR NEGATIVE (Negative); SARS COV2 PCR INHOUSE NEGATIVE (Negative)
== END 2024-10-16 08:13 | disposition home or self-care (01) ==
LOC: HO.LAB 08:12
PROVIDERS: Physician Assistant; PCP Nurse Practitioner Family
DX: Z13.89 Encounter for screening for other disorder (principal)
CPT/HCPCS: 0241U; 99212

== ENCOUNTER 2024-10-16 08:54 | Outpatient (REF) | payer MEDICARE, SELFPAY ==
--- NOTE | ~2024-10-16 | XR_ITS ---
EXAMINATION: XR CHEST 2 VIEWS HISTORY: R05.9 - Cough, unspecified COMPARISON: Comparison is made with the prior examination dated 05/28/2023. FINDINGS: PA and lateral views of the chest are submitted. Again seen is a calcified granuloma in the right lower lobe. The lungs are otherwise clear. There is no pleural effusion, pneumothorax, or pulmonary vascular congestion. The heart is normal in size. There is scoliosis of the spine. XR/XR chest 2V IMPRESSION: No acute cardiopulmonary abnormality. Electronically signed by: Nic Wang MD 10/16/2024 09:09 AM [facility]
== END 2024-10-16 08:55 | disposition home or self-care (01) ==
LOC: HO.HMGCX 08:54
PROVIDERS: PCP Nurse Practitioner Family; Visit Provider Physician Assistant
DX: J06.9 Acute upper respiratory infection, unspecified (principal); R05.9 Cough, unspecified
CPT/HCPCS: 0241U; 71046; 99212

== ENCOUNTER → 2024-10-16 08:58 | Outpatient (BNV) | payer MEDICARE, SELFPAY | PROVIDERS: PCP Nurse Practitioner Family; Visit Provider Radiology Diagnostic Radiology | DX: R05.9 Cough, unspecified (principal) | CPT/HCPCS: 71046 ==

== ENCOUNTER 2025-02-19 14:56 | Outpatient (REF) | payer MEDICARE, SELFPAY ==
--- OUTSIDE RECORDS SUMMARY | 2025-02-20 12:39 | XMS_ITS | Clinical Summary ---
Author Organization [place] [address] [place] [address] [place] [address] [place] [address] Care Team Providers Care Infantry Indirect Fire Crewmember Name Role Phone Edward Barajas NP Primary [...] age to complete this topic Insurance MEDICARE [facility] MEDICARE [facility] MEDICARE [facility] Care Teams Infantry Indirect Fire Crewmember Relationship Specialty Start Date End Date Edward Barajas NP [address] [place] [phone] PCP - General Family Medicine 03/30/20
== END 2025-02-19 14:57 | disposition home or self-care (01) ==
LOC: HO.LNP 14:56
PROVIDERS: PCP Nurse Practitioner Family; Visit Provider Physician Assistant Medical
DX: R30.0 Dysuria (principal)
CPT/HCPCS: 81003; 87086; 99212

== ENCOUNTER 2025-02-19 14:56 | Outpatient (AMB) | payer MEDICARE, SELFPAY ==
--- NOTE | 2025-02-19 15:23 | MHC.OFFWIV ---
Intake Vital Signs 02/19/25 15:25 Weight 148 lb BP 114/60 Blood Pressure Location Lt brachial Position Sitting Pulse 62 Pulse Source Pulse Oximeter Temp 98.1 F Temp Source Oral Pulse Oximetry (%) 98 Oxygen Delivery Method Room Air Intake Visit Reasons: EP UTI? Intake Note: Patient here for bladder pressure and frequent urination that has been present for about 4 days. Patient Tobacco Use Status: Never used Tobacco Allergies amoxicillin Allergy (Verified 02/19/25 15:26) Angioedema ibuprofen [From Motrin] Allergy (Verified 02/19/25 15:26) Angioedema Do you need a note to return to daycare/school/sports/work: No HPI HPI Comments History of Present Illness Details 79 yo female who presents today with urinary frequency and urgency for the past 4 days. She states that she has a pressure that comes and goes on the lower abd. She states that she feels like she has a UTI. She states that she does not feel like she can empty her bladder. She has pain with urination. She states that she has back pain but that is normal for her. She denies fever, chills, CP, SOB, n/v/d. She has no vaginal bleeding. She has no history of stones. She has no blood in the urine. [facility] Medical History (Updated 10/16/24 @ 08:51 by Jania Roque PA-C) HTN (hypertension) Palpitations UTI (urinary tract infection) Wheezing Neck swelling Tick bite Leukopenia Right ankle swelling Screening for breast cancer Chest pain Dysuria Surgical History No pertinent past surgical history Family History Mother HTN (hypertension) Gastric lymphoma Father Lung cancer Sister CAD (coronary artery disease) Brother Prostate cancer genetic susceptibility HTN (hypertension) Social History Housing: House Alcohol intake: never Patient Tobacco Use Status: Never used Tobacco e-Cigarette/Vaping Use: Never Used Second Hand Smoke Exposure: No service: No Current occupational status: employed 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 Current occupational exposures/hazards: No Cognitive needs: No Hearing needs: No Vision needs: No Review of Systems Const All systems reviewed & are unremarkable except as noted in HPI and below Physical Exam Vital Signs: Last Vital Signs Temp 98.1 F 02/19/25 15:25 Pulse 62 02/19/25 15:25 BP 114/60 02/19/25 15:25 Pulse Ox 98 02/19/25 15:25 Oxygen Delivery Method Room Air 02/19/25 15:25 Const General: healthy appearing and no acute distress Resp Effort & Inspection: normal respiratory effort Auscultation: clear to auscultation bilaterally Cardio Rate: regular rate Rhythm: regular rhythm GI Inspection: Yes normal to inspection Palpation (GI): Soft to palpation, nontender and no guarding Percussion: Yes normal to percussion Auscultation: normal bowel sounds General: Yes no CVA tenderness Back/Spine/Pelvis Back: no CVA tenderness Skin General skin exam: no rashes or lesions noted Results AMB Urinalysis, Automated UA Leukoctes 0 Yasir/uL Last Edit by Nilda Irizarry CMA on 02/19/25 15:24 UA Nitrite Negative Last Edit by Nilda Irizarry CMA on 02/19/25 15:24 UA Urobilinogen 0.2 mg/dL Last Edit by Nilda Irizarry CMA on 02/19/25 15:24 UA Protein 0 mg/dL Last Edit by Nilda Irizarry CMA on 02/19/25 15:24 UA pH 5.5 Last Edit by Nilda Irizarry CMA on 02/19/25 15:24 UA Blood 10 Del/uL Last Edit by Nilda Irizarry CMA on 02/19/25 15:24 UA Specific [place] 1.005 Last Edit by Nilda Irizarry CMA on 02/19/25 15:24 UA Ketone Negative Last Edit by Nilda Irizarry CMA on 02/19/25 15:24 UA Bilirubin 0 mg/dL Last Edit by Nilda Irizarry CMA on 02/19/25 15:24 UA Glucose 0 mg/dL Last Edit by Nilda Irizarry CMA on 02/19/25 15:24 Results Reviewed Results Reviewed: Laboratory Last Values Urine pH (Auto) 5.5 02/19/25 15:23 Specific [place] (Auto) 1.005 02/19/25 15:23 Urine Protein (Auto) 0 mg/dL 02/19/25 15:23 Glucose (UA)(Auto) 0 mg/dL 02/19/25 15:23 Urine Ketones (Auto) Negative 02/19/25 15:23 Urine Blood (Auto) 10 Del/uL 02/19/25 15:23 Urine Nitrite (Auto) Negative 02/19/25 15:23 Urine Bilirubin (Auto) 0 mg/dL 02/19/25 15:23 Urine Urobilinogen (Auto) 0.2 mg/dL 02/19/25 15:23 Leukocyte Esterase (Auto) 0 Yasir/uL 02/19/25 15:23 Assessment & Plan Assessment & Plan (1) Dysuria: Code(s): R30.0 - Dysuria Plan Most likely UTI vs stone UA- 1+blood Plan - will order UC - tylenol as needed for pain - bactrim DS BID for 3 days - drink lots fluids - will call with the results - f/u with PCP Orders: Orders AMB Urinalysis Automated Today Jania Roque PA-C Z13.9 - Encounter for screening, unspecified Medications: New sulfamethoxazole-trimethoprim 800-160 mg (Bactrim DS) 1 tab PO q12h 6 tabs 0RF 3 days Maddie Tuttle PA-C Coding Level of Care Code Est Pt Level 3 (44093) Diagnoses Dysuria R30.0
[2025-02-19 15:25] VITALS: BP 114/60; PULSE 62; TEMP 36.7; O2SAT 98
--- OUTSIDE RECORDS SUMMARY | 2025-02-19 17:35 | XMS_ITS | Clinical Summary ---
Author Organization [place] [address] [place] [address] [place] [address] [place] [address] Care Team Providers Care Copper Flotation Operator Name Role Phone Edward Barajas NP Primary [...] Lipid disorder screening 1986 Diabetes screening 1991 Pneumococcal Vaccine (50+ ye ars) (1 of 1 - PCV) 1996 Shingles vaccine (Shingrix) (1 of 2 - Shingrix (RZV) 2 Dose Standard Series) 1996 Osteoporosis screening (bone density) 2011 RSV Immunization (1 - 1-dose 75+ series) 2021 Covid-19 vaccine series (2023- season) 2024 Influenza vaccine 05/11/2025 Breast cancer screening Discontinued Cervical cancer screening Discontinued Colon cancer screening, Colonoscopy Discontinued Meningococcal Vaccine Aged Out No forest galen eligible based on patient's age to complete this topic Insurance MEDICARE [facility] MEDICARE [facility] MEDICARE [facility] Care Teams Copper Flotation Operator Relationship Specialty Start Date End Date Edward Barajas NP [address] [phone] PCP - General Family Medicine 03/30/20
== END 2025-02-19 16:03 | disposition home or self-care (01) ==
PROVIDERS: PCP Nurse Practitioner Family; Visit Provider Physician Assistant Medical
DX: R30.0 Dysuria (principal)

== ENCOUNTER 2025-06-15 08:58 | Outpatient (AMB) | payer MEDICARE, SELFPAY ==
--- NOTE | 2025-06-15 09:36 | AM.OFFWIN_ITS ---
Intake Vital Signs 06/15/25 09:37 Height 5 ft 6 in Weight 144 lb BMI 23.2 BP 148/80 H Blood Pressure Location Rt brachial Position Sitting Pulse 64 Pulse Source Pulse Oximeter Temp 98.3 F Temp Source Oral Pulse Oximetry (%) 100 Oxygen Delivery Method Room Air Intake Visit Reasons: ep possible uti Intake Note: pt presents with vagnal burning and lower pelvic discomfort, body chills Patient Tobacco Use Status: Never used Tobacco Allergies amoxicillin Allergy (Verified 06/15/25 09:38) Angioedema ibuprofen (From Motrin) Allergy (Verified 06/15/25 09:38) Angioedema Do you need a note to return to daycare/school/sports/work: No HPI HPI Comments History of Present Illness Details History - The patient is a 79-year-old female pr esenting with vaginal burning and lower pelvic discomfort. - She reports these symptoms are reminis cent of premenstrual discomfort and a ssociates them with past urinary tract infections. - Symptoms began this morning, with no r ecent antibiotic use or discharge. - She has a history of scoliosis, contri buting to occasional back discomfort, and a known vaginal prolapse, which may cause irritation. - The patient uses Vagisil for symptom r elief but is cautious to avoid urethral irritation. - The burning is in the vagina. - She has no associated fever, chills, C P, SOB, vaginal discharge, or bleeding. - She has no blood in the urine. Physical Exam General: Cooperative, healthy appearing, comfortable, no acute distress and well developed Cardiac: Normal S1 and S2. RRR, no M/R/G noted. Respiratory: Normal respiratory effort and able to speak in complete sentences. Clear to auscultation bilaterally. No w/r/r noted. Skin: No rashes or lesions noted. GI: Normal inspection. Normal BS noted. Soft, non-tender, non-distended. No TTP of all 4 quadrants. No guarding or rebound tenderness noted. Back: Negative CVA bilaterally Patient was informed and verbally consented to the use of an ambient scribe for clinic note documentation during this visit. [facility] Medical History (Updated 10/16/24 @ 08:51 by Jania Roque PA-C) HTN (hypertension) Palpitations UTI (urinary tract infection) Wheezing Neck swelling Tick bite Leukopenia Right ankle swelling Screening for breast cancer Chest pain Dysuria Surgical History No pertinent past surgical history Family History Mother HTN (hypertension) Gastric lymphoma Father Lung cancer Sister CAD (coronary artery disease) Brother Prostate cancer genetic susceptibility HTN (hypertension) Social History Housing: House Alcohol intake: never Patient Tobacco Use Status: Never used Tobacco e-Cigarette/Vaping Use: Never Used Second Hand Smoke Exposure: No service: No Current occupational status: employed 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 Current occupational exposures/hazards: No Cognitive needs: No Hearing needs: No Vision needs: No Review of Systems Const All systems reviewed & are unremarkable except as noted in HPI and below Physical Exam Vital Signs: Last Vital Signs Temp 98.3 F 06/15/25 09:37 Pulse 64 06/15/25 09:37 BP 148/80 H 06/15/25 09:37 Pulse Ox 100 06/15/25 09:37 Oxygen Delivery Method Room Air 06/15/25 09:37 BMI result Body Mass Index 23.2 Results AMB Urinalysis, Automated UA Leukoctes 0 Yasir/uL Last Edit by Dg Chavez CMA on 06/15/25 10:22 UA Nitrite Negative Last Edit by Dg Chavez CMA on 06/15/25 10:22 UA Urobilinogen 0.2 mg/dL Last Edit by Dg Chavez CMA on 06/15/25 10 :22 UA Protein 0 mg/dL Last Edit by Dg Chavez CMA on 06/15/25 10:22 UA pH 6.0 Last Edit by Dg Chavez CMA on 06/15/25 10:22 UA Blood 0 Del/uL Last Edit by Dg Chavez CMA on 06/15/25 10:22 UA Specific [place] 1.005 Last Edit by Dg Chavez CMA on 06/15/25 10:22 UA Ketone Negative Last Edit by Dg Chavez CMA on 06/15/25 10:22 UA Bilirubin 0 mg/dL Last Edit by Dg Chavez CMA on 06/15/25 10:22 UA Glucose 0 mg/dL Last Edit by Dg Chavez CMA on 06/15/25 10:22 Results Reviewed Results Reviewed: Laboratory Last Values Urine pH (Auto) 6.0 06/15/25 09:28 Specific [place] (Auto) 1.005 06/15/25 09:28 Urine Protein (Auto) 0 mg/dL 06/15/25 09:28 Glucose (UA)(Auto) 0 mg/dL 06/15/25 09:28 Urine Ketones (Auto) Negative 06/15/25 09:28 Urine Blood (Auto) 0 Del/uL 06/15/25 09:28 Urine Nitrite (Auto) Negative 06/15/25 09:28 Urine Bilirubin (Auto) 0 mg/dL 06/15/25 09:28 Urine Urobilinogen (Auto) 0.2 mg/dL 06/15/25 09:28 Leukocyte Esterase (Auto) 0 Yasir/uL 06/15/25 09:28 Assessment & Plan Assessment & Plan (1) Vaginal burning: Code(s): N94.89 - Other specified conditions associated with female genital organs and menstrual cycle Plan Most likely UTI vs yeast vs BV UA in the office is neg Plan - Conduct a urine culture to check for bacterial growth due to suspected urinary tract infection. - Perform a vaginal swab to rule out yeast infection as a cause of burning. - Prescribe oral Diflucan for potential yeast infection. - Advise patient to consult her tallow refiner for further evaluation of symptoms and vaginal prolapse management. Orders: Orders AMB Urinalysis Automated Today Z13.9 - Encounter for screening, unspecified Urine Culture Today N39.0 - Urinary tract infection, site not specified Bacterial Vaginosis Panel Today N94.89 - Other specified conditions associated with female genital organs and menstrual cycle Medications: New fluconazole may repeat second dose 72 hrs after first dose if symptoms persist 150 mg PO Q3D 2 tabs 0RF Coding Level of Care Code Est Pt Level 3 (84598) Diagnoses Vaginal burning N94.89
[2025-06-15 09:37] VITALS: BP 148/80; PULSE 64; TEMP 36.8; O2SAT 100; BMI 23.2
--- OUTSIDE RECORDS SUMMARY | 2025-06-15 09:53 | XMS_ITS | Clinical Summary ---
Author Organization [place] [address] [place] [address] [place], [place] [address] [id number] Care Team Providers Care Customer Support Manager Name Role Phone Edward Barajas NP Primary [...] 90 03/30/2020 2:42 PM EDT Temperature 37.3 C (99.1 F) 03/30/2020 2:42 PM EDT Respiratory Rate 16 03/30/2020 2:42 PM EDT [...] Immunization (1 - 1-dose 75+ series) 2021 Influenza vaccine 04/10/2025 Covid-19 vaccine series (2023- season) 2025 Breast cancer screening Discontinued Cervical cancer screening Discontinued Colon cancer screening, Colonoscopy Discontinued Meningococcal B Vaccine Aged Out No l onger eligible based on patient's age to complete this topic Meningococcal Vaccine Aged Out No forest galen eligible based on patient's age to complete this topic Insurance MEDICARE [facility] MEDICARE [facility] MEDICARE [facility] Care Teams Customer Support Manager Relationship Specialty Start Date End Date Edward Barajas NP [address] [facility] [place] [address] PCP - General Family Medicine 03/30/20
--- OUTSIDE RECORDS SUMMARY | 2025-06-15 09:53 | XMS_ITS | Patient Health Record ---
Author Organization [facility] Address [address] [place] [address] Care Team Providers Care Interventional Neuroradiologist Name Role Phone SILVIA HARO Primary Care Provider Yoel Rosales Jr Reason For Referral No Information Medications Medication SIG (Take, Route, Frequency, Duration) Notes Start Date End Date Status Calcium Citrate-Vitamin D 500-400 MG-UNIT 1 tablet Orally Once a day Active Ranitidine HCl 150 MG 1 tablet Orally On ce a day for 90 Active Omeprazole 40 MG 1 capsule Orally prn 07/04/2011 Active Aspir-81 81 MG 1 tablet Orally Once a day Active Vitamin D3 1000 UNIT 1 tablet Orally Once a day Active Vitamin B Complex-C - 1 Orally QD Active Glucosamine-Vitamin D3 - 1 Orally QD Active Immunizations Vaccine Route Administration Date Status Comme nts Flu vaccine no Preserv 3 and > Unknown 08/02/2016 Admin istered Problems Problem Type SNOMED Code ICD Code Onset Dates Problem Status W/U Status Risk Notes Problem Right upper quadrant pain (008647610) Abdominal pain, right upper quadrant (789.01) Active confirmed Problem Epigastric pain (93332644) Abdominal pain, epigastric (789.06) Active confirmed Problem Screening for malignant neoplasm of colon (779478997) Special screening for malignant neoplasms, colon (V76.51) Active confirmed Problem Fever (824311966) Fever (780.60) Active confirmed Problem 853341887 Chronic superficial gastritis without bleeding (K29.30) Active confirmed Problem 64215675 Hypertension, unspecified type (I10) Active confirmed Problem 33441299 Osteoporosis without current pathological fracture, unspecified osteoporosis type (M81.0) Active confirmed Plan Of Treatment Pending Test Test Name Order Date LIVER PROFILE 05/26/2014 AMYLASE 05/26/2014 LIPASE 05/26/2014 CBC with MANUAL DIFFERENTIAL 05/26/2014 NUC HIDA SCAN 05/26/2014 Future Test Test Name Order Date UPPER GI ENDOSCOPY 07/04/2011 COLONOSCOPY 07/04/2011 Insurance Providers Payer Name Payer Address Payer Phone Subscriber Number Group Number Insured Name Patient Relationship to Insured Coverage Start Date Coverage End Date MEDICARE OF [place] [address] [place] [id number] JASON TAYLOR Self - patient is the insured AAR SUPPLEMENT [place] PLAN [address] [place] [address] [phone] [id number] JASON TAYLOR Self - patient is the insured Medical (General) History Medical History History ICD Code Denies PR,DM,CVA,Lung disease,renal dise ase previous history of hyperthyroidism sera genesis with propylthiouracil EGD 09/2011--normal-no H.pylo ri, minimal gastritis, hyperplastic gastric polyps Screening colonoscopy in 09/11 012-no polyps-sigmoid diverticulosis and internal hemorrhoids Surgical History Surgery Date(Month/Year)
== END 2025-06-15 10:30 | disposition home or self-care (01) ==
PROVIDERS: PCP Nurse Practitioner Family; Visit Provider Physician Assistant Medical
DX: N94.89 Other specified conditions associated with female genital organs and menstrual cycle (principal); Z13.9 Encounter for screening, unspecified

== ENCOUNTER 2025-06-15 08:58 | Outpatient (REF) | payer MEDICARE, SELFPAY ==
[2025-06-16 08:06] LABS: Bacterial Vaginosis PCR NEGATIVE (Negative); Candida Group PCR NOT DETECTED (Not Detect); Candida glab krusei PCR NOT DETECTED (Not Detect); Trichomonas vaginalis PCR NOT DETECTED (Not Detect)
== END 2025-06-15 08:59 | disposition home or self-care (01) ==
LOC: HO.LAB 08:58
PROVIDERS: PCP Nurse Practitioner Family; Visit Provider Physician Assistant Medical
DX: N94.89 Other specified conditions associated with female genital organs and menstrual cycle (principal); N81.10 Cystocele, unspecified
CPT/HCPCS: 81003; 81515; 87086; 99212

== ENCOUNTER 2025-09-07 09:24 | Outpatient (AMB) | payer MEDICARE, SELFPAY ==
--- OUTSIDE RECORDS SUMMARY | 2025-09-07 09:53 | XMS_ITS | Clinical Summary ---
Author Organization [place] [address] [place] [address] [place], [place] [address] [address] Care Team Providers Care Recovery Analyst Name Role Phone Edward Barajas NP Primary [...] 2021 Influenza vaccine 04/10/2025 Covid-19 vaccine series (2024- season) 2025 Breast cancer screening Discontinued Cervical cancer screening Discontinued Colon cancer screening, Colonoscopy Discontinued Meningococcal B Vaccine Aged Out No l onger eligible based on patient's age to complete this topic Meningococcal Vaccine Aged Out No forest galen eligible based on patient's age to complete this topic Insurance MEDICARE [facility]ICARE [facility]ICARE [facility] Care Teams Recovery Analyst Relationship Specialty Start Date End Date Edward Barajas NP [address] [place] [phone] PCP - General Family Medicine 03/30/20
--- OUTSIDE RECORDS SUMMARY | 2025-09-07 09:53 | XMS_ITS | Patient Health Record ---
Author Organization [facility] Address [address] [place] [address] Care Team Providers Care Mineralogy Professor Name Role Phone SILVIA HARO Primary Care Provider Yoel Rosales Jr Unavailable [phone] Reason For Referral No Information Medications Medication SIG (Take, Route, Frequency, Duration) Notes Start Date End Date Status Calcium Citrate-Vitamin D 500-400 MG-UNIT Tablet Chewable 1 tablet Orally Once a day A ctive raNITIdine HCl 150 MG Tablet 1 tablet Orally Once a day; Duration: 90 Active Omeprazole 40 MG Capsule Delayed Release 1 capsule Orally prn 07/04/2011 Acti ve Aspir-81 81 MG Tablet Delayed Release 1 tablet Orally Once a day Active Vitamin D3 1000 UNIT Tablet 1 tablet Orally Once a day A ctive Vitamin B Complex-C - Capsule 1 Orally QD Active Glucosamine-Vitamin D3 - Tablet 1 Orally QD Active Immunizations Vaccine Route Administration Date Status Comme nts Flu vaccine no Preserv 3 and > Unknown 08/02/2016 Admin istered Social History Social History Additional Details Category Social Info Options Details Miscellaneous: Marital status: Single 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 Section Notes: Nonsmoker; no sig alcohol Nonsmoker; no sig alcohol Problems Problem Type SNOMED Code ICD Code Onset Dates Problem Status W/U Status Risk Notes Problem Right upper quadrant pain (508369790) Abdominal pain, right upper quadrant (789.01) Active confirmed Problem Epigastric pain (71139353) Abdominal pain, epigastric (789.06) Active confirmed Problem Screening for malignant neoplasm of colon (022134508) Special screening for malignant neoplasms, colon (V76.51) Active confirmed Problem Fever (153222638) Fever (780.60) Active confirmed Problem CSG - Chronic superficial gastritis (005270560) Chronic superficial gastritis without bleeding (K29.30) Active confirmed Problem Essential hypertension (45839523) Hypertension, unspecified type (I10) Active confirmed Problem Age-related osteoporosis (769011439) Osteoporosis without current pathological fracture, unspecified osteoporosis [...] Date MEDICARE OF [place] [address] [facility] [place] [address] [id number] JASON TAYLOR Self - patient is the insured A[employer] SUPPLEMENT [place] PLAN [address] [place], [place] [address] [phone] [id number] JASON TAYLOR Self - patient is the insured Medical (General) History Medical History History ICD Code Denies [place],DM,CVA,Lung disease,renal dise ase previous history of hyperthyroidism sera genesis with propylthiouracil EGD 09/2011--normal-no H.pylo ri, minimal gastritis, hyperplastic gastric polyps Screening colonoscopy in 09/11 012-no polyps-sigmoid diverticulosis and internal hemorrhoids Surgical History Surgery Date(Month/Year)
--- OUTSIDE RECORDS SUMMARY | 2025-09-07 09:53 | XMS_ITS | Clinical Summary ---
Author Organization [facility] Address [address] [place] [address] Care Team Providers Care Program Medical Director Name Role Phone Unavailable Primary Care Provider Unavailabl e Social History Tobacco Use Types Packs/Day Years Used Date Smoking Tobacco: Never Assessed Comments Unknown Sex and Gender Information Value Date Recorded Sex Assigned at Not on file Legal Sex Female 11:15 AM EST Gender Identity Not on file Sexual Orientation Not on file Plan of Treatment Not on file
[2025-09-07 10:04] VITALS: BP 132/78; PULSE 68; O2SAT 99; BMI 23.7
--- NOTE | 2025-09-07 10:04 | MHC.OFFWIV ---
Intake Vital Signs 09/07/25 10:04 Height 5 ft 6 in Weight 147 lb BMI 23.7 BP 132/78 Blood Pressure Location Rt brachial Position Sitting Pulse 68 Pulse Source Pulse Oximeter Pulse Oximetry (%) 99 Oxygen Delivery Method Room Air Intake Visit Reasons: EP fell pn ice hurt lft elbow Intake Note: Patient presents c/o left elbow pain/swelling related to a fall on the ice at [employer] this morning. Patient Tobacco Use Status: Never used Tobacco Allergies amoxicillin Allergy (Verified 09/07/25 10:21) Angioedema ibuprofen (From Motrin) Allergy (Verified 09/07/25 10:21) Angioedema HPI HPI Comments History of Present Illness Details 80-year-old female presents to the walk-in clinic with complaints of left elbow pain and swelling following a fall earlier this morning. Patient reports she slid on black ice at [employer] and landed on her left side. She denies head strike, loss of consciousness, dizziness, or syncope. She reports significant swelling at the left elbow with very limited range of motion due to pain. She has applied ice and heat with minimal relief. Denies tingling, numbness, or weakness of the left upper extremity. No prior injury to the elbow reported. [facility] Medical History (Updated 09/07/25 @ 12:55 by Sarai Coronado NP) Left elbow contusion HTN (hypertension) Palpitations UTI (urinary tract infection) Wheezing Neck swelling Tick bite Leukopenia Right ankle swelling Screening for breast cancer Chest pain Dysuria Surgical History No pertinent past surgical history Family History Mother HTN (hypertension) Gastric lymphoma Father Lung cancer Sister CAD (coronary artery disease) Brother Prostate cancer genetic susceptibility HTN (hypertension) Social History Housing: House Alcohol intake: never Patient Tobacco Use Status: Never used Tobacco e-Cigarette/Vaping Use: Never Used Second Hand Smoke Exposure: No service: No Current occupational status: employed 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 Current occupational exposures/hazards: No Cognitive needs: No Hearing needs: No Vision needs: No Review of Systems Const All systems reviewed & are unremarkable except as noted in HPI and below Physical Exam Vital Signs: Last Vital Signs Pulse 68 09/07/25 10:04 BP 132/78 09/07/25 10:04 Pulse Ox 99 09/07/25 10:04 Oxygen Delivery Method Room Air 09/07/25 10:04 BMI result Body Mass Index 23.7 Const General: no acute distress; No comfortable Nutritional Appearance: well nourished Orientation/consciousness: patient oriented x3 Neuro Other: Sensation intact to light touch distally Capillary refill < 2 seconds Radial pulse palpable General: patient oriented x3 Extrem Other: Left Elbow: Marked swelling and tenderness over the elbow joint Limited active and passive ROM due to pain No open wounds, lacerations, or obvious deformity Ecchymosis noted. Assessment & Plan Assessment & Plan (1) Left elbow contusion: Comment: XRAY RESULTS: IMPRESSION: Moderately displaced fracture of the olecranon process of the ulna. Code(s): S50.02XA - Contusion of left elbow, initial encounter Plan: Left elbow injury s/p mechanical fall Left elbow pain and swelling ? rule out fracture vs contusion vs olecranon bursitis. Ordered X-ray of the left elbow to evaluate for fracture or dislocation Apply ice 15?20 minutes every 2?3 hours Sling for comfort and immobilization Recommended Acetaminophen for pain control Avoid lifting or weight-bearing. Plan Sent Rousseau Message to Orthopedics PA behavioral consultant (Gayathri Baez) - advised to apply Long Splint. Placed urgent referral to Orthopedics. Orders: Orders XR elbow LT min 3V Today S50.02XA - Contusion of left elbow, initial encounter Referrals Orthopedics Referral S52.023A - Displaced fracture of olecranon process without intraarticular extension of unspecified ulna, initial encounter for closed fracture Coding Level of Care Code Est Pt Level 4 (26508) Diagnoses Left elbow contusion S50.02XA Time Spent (min) 20
== END 2025-09-07 12:50 | disposition home or self-care (01) ==
PROVIDERS: PCP Nurse Practitioner Family; Visit Provider Nurse Practitioner Family
DX: S50.02XA Contusion of left elbow, initial encounter (principal)

== ENCOUNTER 2025-09-07 09:24 | Outpatient (REF) | payer MEDICARE, SELFPAY ==
--- NOTE | ~2025-09-07 | XR_ITS ---
EXAMINATION: XR ELBOW 3 VIEWS LEFT HISTORY: S50.02XA - Contusion of left elbow, initial encounter COMPARISON: There are no prior studies available for comparison. FINDINGS: Three views of the left elbow are submitted. Osseous mineralization is normal. There is a moderately displaced fracture of the olecranon process of the ulna. The joint spaces are preserved. There is marked soft tissue swelling at the fracture site. XR/XR elbow LT min 3V IMPRESSION: Moderately displaced fracture of the olecranon process of the ulna. Electronically signed by: Nic Wang MD 09/07/2025 11:10 AM [facility]
--- OUTSIDE RECORDS SUMMARY | 2025-09-07 12:32 | XMS_ITS | Data Portability ---
Author Organization [facility], [address] Address [address] [place] [address] Assessment No assessment recorded. Plan of Treatment Reminders Order Date Submit Date Provider Last Modified By Organization Details Last Modified Time Details Appointments None recorded. Lab culture, urine 2022 023 [facility], [address] [place] [address], [id number], 3 12:06:30 urinalysis , dipstick 2022 023 [facility], [address] [place] [address], [phone], 3 17:15:22 Referral None recorded. Procedures None recorded. Surgeries None recorded. Imaging None recorded. Medication Orders Macrobid 100 mg capsule 2022 023 [facility] #[id number], [address] [facility] [place], [address], 3 17:18:21 Patient TargetsNo targets recorded. Patient Instructions Encounter Date Encounter Id Patient Instructions Last Modified By Organization Details Last Modified Time 05/20/2023 [id number] Female Urinary Tract Infection (UTI): Care Instructions [email or web address] Not available 05/20/2023 17:18:19 We recommend you get a repeat urinalysis in 2 weeks to ensure that any abnormalities have resolved. If urine abnormalities persist, you will likely need further testing or treatment. We will contact you within 3 to 5 days with the results of your lab test. If you have not heard back from us within that time frame, please feel free to contact our office regarding your results. Go to the Emergency Department immediately if your symptoms worsen or if you develop new symptoms that concern you. Drink plenty of fluids You should follow-up with your PCP in 4-5 days, or at any time if your condition does not improve or worsens. Any acute change should prompt a visit to the nearest Emergency Department. [email or web address] Not available 05/20/2023 17:15:17 Reason for Referral None Reported. Results Created Date Observation Date Name Description Value Unit Range Abnormal Flag Note LastModifiedBy Organization Detail LastModifiedTime 05/20/2005/23/2023 URINE CULTU RE, ROUTI NE urine culture, routine FINAL REPORT abnormal Not Available [facility] ([facility]) [address] [facility], [place], [address], 05/23/2023 12:06:26 05/20/2005/23/2023 URINE CULTU RE, ROUTI NE result 1 ESCHER ICHIA COLI abnormal Cefaz peter <=4 ug/mL Cefaz peter with an ANUEL <=16 predi cts susce ptibi lity to the oral agent s cefac daisy, cefdi evangelina, cefpo doxim e, cefpr ozil, cefur oxime , cepha lexin , and lorac arbef when used for thera py of uncom plica genesis urina ry tract infec tions due to E. coli, Klebs iella pneum oniae , and Prote us mirab ilis. 25,00 0-50, 000 colon y formi ng units per mL Not Available [facility] ([facility]) [address] [facility], [place], [address], 05/23/2023 12:06:26 05/20/2005/23/2023 URINE CULTU RE, ROUTI NE antimicrobia l susceptibili ty COMMEN T S = Susce ptibl e; I = Inter media te; R = Resis tant P = Posit tyra; N = Negat tyra MICS are expre ssed in micro grams per mL Antib iotic RSLT# 1 RSLT# 2 RSLT# 3 RSLT# 4 Amoxi cilli n/Cla vulan ic Acid S Ampic illin S Cefep loreta S Ceftr iaxon e S Cefur oxime S Cipro floxa neri R Ertap enem S Genta micin S Imipe nem S Levof loxac in R Merop enem S Nitro furan toin S Piper acill in/Ta zobac mata S Tetra cycli ne R Tobra mycin S Trime thopr im/Traylor lfa R Not Available [facility] ([facility]) [address] [facility], [place], [address], 05/23/2023 12:06:26 05/20/2005/20/2023 urina lysis , dipst ick Unknown Analyte Yellow Not Available [facility] [address], [address], 05/20/2023 16:57:09 05/20/2005/20/2023 urina lysis , dipst ick Unknown Analyte Slight ly Cloudy Not Available [facility] [address], [address], 05/20/2023 16:57:09 05/20/20 23 05/20/2023 urina lysis , dipst ick Unknown Analyte Negati ve Not Available [facility] [address], [address], 05/20/2023 16:57:09 05/20/20 23 05/20/2023 urina lysis , dipst ick Unknown Analyte Negati ve Not Available [facility] [address], [address], 05/20/2023 16:57:09 05/20/20 23 05/20/2023 urina lysis , dipst ick Unknown Analyte Negati ve Not Available [facility] [address], [address], 05/20/2023 16:57:09 05/20/20 23 05/20/2023 urina lysis , dipst ick Unknown Analyte 1.010 Not Available [address] [place], [address], 05/20/2023 16:57:09 05/20/2005/20/2023 urina lysis , dipst ick Unknown Analyte Modera te Not Available [address] [place], [address], 05/20/2023 16:57:09 05/20/2005/20/2023 urina lysis , dipst ick Unknown Analyte 6.0 Not Available [address] [place], [address], 05/20/2023 16:57:09 05/20/2005/20/2023 urina lysis , dipst ick Unknown Analyte Negati ve Not Available [address] [place], [address], 05/20/2023 16:57:09 05/20/2005/20/2023 urina lysis , dipst ick Unknown Analyte 0.2 E.U./d L Not Available [address] [place], [address], 05/20/2023 16:57:09 05/20/2005/20/2023 urina lysis , dipst ick Unknown Analyte Negati ve Not Available [address] [place], [address], 05/20/2023 16:57:09 05/20/2005/20/2023 urina lysis , dipst ick Unknown Analyte Modera te Not Available [address] [place], [address], 05/20/2023 16:57:09 Result Notes None recorded. Problems Name Problem SNOMED Code Status Onset Date Resolution Date Notes Provider Name and Address Organization Details Recorded Time Essential hypertension 82747951 Active 2022 KATHARINE FREEMAN susan PA - [facility] 3 16:50:37 Gastritis 4954687 Active 2022 KATHARINE davis PA - [facility] 3 16:50:49 Osteoporosis 23553382 Active 2022 KATHARINE FREEMAN susan PA - [facility] 16:51:04 Problem Notes None recorded. Medical Equipment None Reported. Allergies No known drug allergies Medications Name Sig Start Date Stop Date Status Note LastModified by Organization Details LastModified Time doxycycline hyclate 100 mg capsule TAKE 1 CAPSULE BY MOUTH 2 TIMES A DAY FOR 21 DAYS 05/20 completed Not Available Not Available Not Available amlodipine 5 mg tablet TAKE 1 TABLET BY MOUTH DAILY FOR 90 DAYS active Not Available Not Available No t Available Macrobid 100 mg capsule Take 1 capsule every 12 hours by oral route with meals for 7 days. 2022 active Not Available Not Available Not Avai lable metoprolol succinate ER 25 mg tablet,exte nded release 24 hr TAKE 1 TABLET BY MOUTH EVERY DAY active Not Available Not Available No t Available Quick[employer] At-Home COVID-19 Test kit TEST DIRECTED TODAY active Not Available Not Available No t Available Vitals Date Recorded Body height Body mass index (BMI) Body weight Oxygen saturation Heart rate Body temperature Systolic And Diastolic Provider Name and Address Organization Details Last Updated DateTime 3 167.64 cm 21.8 kg/m2 58021.9 7 g 98 % 69 /min 97.3 [degF] 144/82 mm[Hg] KATHARINE FREEMAN PA - [facility] 3 17:05:04 Social History Question Answer Notes LastModified by Organizat ion Details LastModified Time Tobacco Smoking Status Never Smoker KATHARINE FREEMAN susan PA - [facility] 05/20/2023 16:53:04 What Is The Highest Grade Or Level Of School You Have Completed Or The Highest Degree You Have Received? [id number] [email or web address] Information not available 05/20/2023 What Is Your Water Source? [facility] [email or web address] Information not available 05/20/2023 What Is Your Heat Source? Gas [email or web address] Information not available 05/20/2023 Have You Had Direct Contact, Or Contact During Intimacy, With Monkeypox Rash, Scabs, Or Body Fluids From A Person With Monkeypox? No [email or web address] Information not available 05/20/2023 What Is Your Relationship Status? [email or web address] Information not available 05/20/2023 Have You Recently Traveled Abroad? No [email or web address] Information not available 05/20/2023 Are You Currently In School? No [email or web address] Information not available 05/20/2023 Sex: Unknown Functional Status Question Answer Note LastModified by Organization D etails LastModified Time Do you or have you ever used any other forms of tobacco or nicotine? No [email or web address] Information not available 05/20/2023 Are you currently employed? No [email or web address] Information not available 05/20/2023 Mental Status None recorded. Family History Relationship Description Onset Age of this Age Resolved Age Notes LastModified by Organization Details LastModified Time Mother Lymphoma finding [email or web address] Not available 2022 16:51:55 Mother Heart disease Not available 2022 16:52:12 Sister Acute heart disease [email or web address] Not available 2022 16:52:30 Medical History No medical history recorded. Gynecological History Statement/Question Response Date of LMP Obstetrics History GPAL:G 0 P 0 0 0 0 Past Encounters Encounter ID Performer Location Encounter Start Date Encounter Closed Date Diagnosis/Indication Diagnosis SNOMED-CT Code Diagnosis ICD10 Code Diagnosis IMO Codes Diagnosis Note [id number] [facility] [address] [place] [address] 03/20/2018 09:07:03 03/20/2018 09:43:25 [id number] [place] [address] [place] [address] 05/20/2023 15:27:45 05/20/2023 17:19:56 Dysuria 91250958 R30.0 Urinary tr act infectious disease 41382346 N39.0 Health Concerns Section Related Observation LastModified by Organization Detai ls LastModified Time None Recorded Concern Status LastModified by Organization Details LastModified Time None Recorded Advance Directives Directive None Recorded Payers Insurance Date Sequence Insurance Name Policy Number Policy Frankel Covered Member ID Frankel Member ID Guarantor Name 05/20/2023 2 [place] [id number] Sarai Babin [id number] Sarai Babin 05/20/2023 1 [place] [facility] Sarai Babin [id number] Sarai Babin 05/20/2023 2 [facility] Sarai Babin [id number] Sarai Babin Notes Date Note Type Note Provider Name and Address Organization Details Recorded Time 05/20/2023 text/html Urinary Complain t FemaleReported by PatientUrinary problemsFor uti symptoms, patient reportspain during urination,urgency,urina ry frequency, andabdominal painbut reportsno blood in the urine,no vaginal discharge,no pain in the flank,no fever/chills,no incontinence,no recurrent uti, andno known exposure to std. For source of patient information, patient reportsinformation obtained from patientandpatient arrived at urgent care ambulatory. For severity, patient reportsmoderate. For duration, patient reports3 days. For modifying factors, patient reportsnothing gives relief.frequency and urgency x 3 day. denies any fever or fever with chills, denies any History of renal stone or bladder issues. Eliezer Salomon NP [address] [place], [address], PA - [facility] 05/20/2023 17:18:54 OBGyn Episode No OBEpisode recorded.
== END 2025-09-07 09:25 | disposition home or self-care (01) ==
LOC: HO.HMGCX 09:24
PROVIDERS: PCP Nurse Practitioner Family; Visit Provider Nurse Practitioner Family
DX: S50.02XA Contusion of left elbow, initial encounter (principal); W00.0XXA Fall on same level due to ice and snow, initial encounter; Y92.22 Religious institution as the place of occurrence of the external cause
CPT/HCPCS: 73080; 99212

== ENCOUNTER → 2025-09-07 10:55 | Outpatient (BNV) | payer MEDICARE, SELFPAY | PROVIDERS: PCP Nurse Practitioner Family; Visit Provider Radiology Diagnostic Radiology | DX: S52.022A Displaced fracture of olecranon process without intraarticular extension of left ulna, initial encounter for closed fracture (principal) | CPT/HCPCS: 73080 ==